=== PATIENT | female | born 1980 | race African-American/Black ===

== ENCOUNTER 2016-11-17 16:02 | Emergency (ER) | payer OTHER ==
[2016-11-17 16:10] VITALS: BP 154/84; PULSE 108; TEMP 98.4; BMI 54.3
--- NOTE | 2016-11-17 16:50 | PDOC ---
Suture Removal/Wound Check HPI - History of Present Illness Chief Complaint: Revisit,Wound Recheck Stated Complaint: REVISIT WOUND CHECK Time Seen by Provider: 11/17/16 16:17 History Source: Yes: Patient Exam Limitations: Yes: No Limitations Treated at: [facility] ED Date of Last ED visit: 11/15/16 - Previous ED Treatment Type of procedure performed on last visit: Yes: I&D of Abscess Antibiotics Prescribed: Yes Past History - Past Medical History Allergies/Adverse Reactions: Allergies No Known Drug Allergies Allergy (Verified 11/17/16 16:10) grapes Allergy (Uncoded 11/17/16 16:10) mushrooms Allergy (Uncoded 11/17/16 16:10) Home Medications: Ambulatory Orders Glipizide 10 mg PO DAILY 06/15/14 Lisinopril [Prinivil] 10 mg PO DAILY 06/16/14 Metformin HCl [Glucophage] 500 mg PO BID 06/16/14 Simvastatin [Zocor -] 5 mg PO HS 06/16/14 Clindamycin [Cleocin -] 300 mg PO TID #30 capsule 11/15/16 General: Yes: other (diabetes) Surgical History: Yes: No Surgical History - Family History Significant Family History: Yes: no pertinent family hx - Social History Smoking Status: Never smoked Patient Lives Alone: No Lives With: spouse/SO Suture Removal/Wound Check PE - Physical Exam Laceration/Wound Check Symptoms: reports: None Current Severity Level: None Maximum Severity Level: None Pain Localization: None Pain Radiation: None *Review of Systems - Review of Systems Able to Perform ROS?: Yes Constitutional: No: Symptoms Reported HEENTM: No: Symptoms Reported Cardiac (ROS): No: Symptoms Reported ABD/GI: No: Symptoms Reported Integumentary: No: Symptoms Reported Neurological: No: Symptoms reported Medical Decision Making - Medical Decision Making 11/17/16 16:47 She needed for wound check. Patient states had I and D of the mons pubis abscess that was packed. Patient states has been taking her antibiotics and denies any pain, fever, or increased drainage. Patient states has been doing warm soaks and hot showers as recommended. Patient states the diabetic and states her sugar this morning was 121. Packing was removed without difficulty. Surrounding skin intact. Patient had gauze applied to the area and recommended to continue hot soaks and hot showers and placed a gauze to the area to provide coverage and allow drainage. precautions given in regards to infection *DC/Admit/Observation/Transfer Diagnosis at time of Disposition: Abscess packing removal, Wound check, abscess - Discharge Dispostion Disposition: HOME Condition at time of disposition: Good - Referrals Referrals: Sam Lantigua MD [Primary Care Provider] - - Patient Instructions Printed Discharge Instructions: DI for Incision and Drainage of a Skin Abscess Additional Instructions: Please continue with your hot soaks and hot showers 4 times a day for least 15 minutes. Keep area covered loosely with a gauze. If you notice any redness swelling increasing drainage and return to ED otherwise follow-up with your PCP.
== END 2016-11-17 16:54 | disposition home or self-care (01) ==
LOC: JERFT 16:02
DX: Z48.01 Encounter for change or removal of surgical wound dressing (principal)
CPT/HCPCS: 99281-25

== ENCOUNTER 2017-01-25 18:39 | Emergency (ER) | payer OTHER ==
[2017-01-25 19:15] VITALS: BMI 54.1
[2017-01-25] MEDS ORDERED: FLUCONAZOLE 100 MG TABLET (UD) PO ONE (19:39)
--- NOTE | 2017-01-25 19:40 | PDOC ---
History of Present Illness - General Chief Complaint: Shortness of Breath Stated Complaint: DIFF BREATHING/EAR PAIN/COUGH/SORE THROAT Time Seen by Provider: 01/25/17 19:16 History Source: Patient Exam Limitations: No Limitations - History of Present Illness Initial Comments: 01/25/17 19:40 36yo Female patient w PmHx: DM and asthma presents to ED c/o Bilateral Ear pain , Cough, and wheezing. Patient states she had not been feeling well x 1 week with coughing and ear pain followed by wheezing yesterday and vomiting x 1 today. She also states that her vaginal area itches and murry when touched. LNMP : Jan 07 regularly irregular. Patient denies abd pain, back pain, CP, fever, hematuria, vaginal odor/discharge/bleeding or any other complaints. Timing/Duration: reports: changing over time, week, yesterday Severity: reports: moderate Possible Cause: Yes: illness exposure (Children at home) Modifying Factors: worse with: activity, albuterol inhaler, albuterol nebulizer , antibiotics, coughing, lying down, oxygen, rest, other Associated Symptoms: reports: cough, earache, sore throat, wheezing Past History - Travel Traveled outside of the country in the last 30 days: No Close contact w/someone who was outside of country & ill: No - Past Medical History Allergies/Adverse Reactions: Allergies Allergy/AdvReac Type Severity Reaction Status Date / Time No Known Drug Allergies Allergy Verified 11/17/16 16:10 grapes Allergy Uncoded 01/25/17 19:06 mushrooms Allergy Uncoded 01/25/17 19:06 Home Medications: Ambulatory Orders Glipizide 10 mg PO DAILY 06/15/14 Lisinopril [Prinivil] 10 mg PO DAILY 06/16/14 Simvastatin [Zocor -] 5 mg PO HS 06/16/14 Albuterol Sulfate Inhaler - [Ventolin Hfa Inhaler -] 1 - 2 inh PO Q4H PRN #1 inhaler 01/25/17 Levofloxacin [Levaquin] 750 mg PO DAILY #6 tab 01/25/17 Asthma: Yes Diabetes: Yes HTN: Yes Hypercholesterolemia: Yes - Psycho/Social/Smoking Cessation Hx Anxiety: No Suicidal Ideation: No Smoking History: Never smoked Have you smoked in the past 12 months: No Information on smoking cessation initiated: No Hx Alcohol Use: No Drug/Substance Use Hx: No Substance Use Type: None Hx Substance Use Treatment: No Respiratory Specific PMHX - Complaint Specific PMHX Angina: No Bronchitis: No Pneumonia: No Pulmonary Embolus: No TB (Tuberculosis): No Review of Systems - Review of Systems Able to Perform ROS?: Yes Is the patient limited Chinese proficient: No Constitutional: No: Chills, Fever, Malaise, Night Sweats HEENTM: Yes: Ear Pain, Nose Congestion, Throat Pain. No: Ear Discharge Respiratory: Yes: Cough, Shortness of Breath, Wheezing. No: Productive cough Cardiac (ROS): No: Chest Pain, Lightheadedness, Palpitations, Syncope, Chest Tightness ABD/GI: Yes: Vomiting. No: Nausea, Poor Appetite, Poor Fluid Intake : No: Burning, Dysuria, Discharge, Flank Pain, Hematuria, Urgency Musculoskeletal: No: Back Pain Integumentary: Yes: Rash. No: Bruising, Erythema Neurological: No: Headache, Seizure, Tremors, Ataxia, Dizziness All Other Systems: Reviewed and Negative *Physical Exam - Vital Signs Last Vital Signs Temp Pulse Resp BP Pulse Ox 98.2 F 112 H 20 143/75 96 01/25/17 19:02 01/25/17 19:02 01/25/17 19:02 01/25/17 19:02 01/25/17 19:02 ED Treatment Course - LABORATORY CBC & Chemistry Diagram: 01/25/17 20:00 01/25/17 20:00 *DC/Admit/Observation/Transfer Diagnosis at time of Disposition: Upper respiratory infection, viral Urinary tract infection Qualifiers: Urinary tract infection type: urethritis Qualified Code(s): N34.2 - Other urethritis Hyperglycemia due to type 2 diabetes mellitus Qualifiers: Diabetes mellitus nursing home insulin use: without nursing home use Qualified Code(s ): E11.65 - Type 2 diabetes mellitus with hyperglycemia - Discharge Dispostion Disposition: HOME Condition at time of disposition: Improved Admit: No - Prescriptions Prescriptions: Levofloxacin [Levaquin] 750 mg PO DAILY #6 tab Albuterol Sulfate Inhaler - [Ventolin Hfa Inhaler -] 1 - 2 inh PO Q4H PRN #1 inhaler PRN Reason: Diff breathing - Patient Instructions Printed Discharge Instructions: DI for Viral Upper Respiratory Infection -- Adult, DI for Hyperglycemia -- Adult, DI for Urinary Tract Infection (UTI) Additional Instructions: FOLLOW UP WITH YOUR PRIMARY CARE PROVIDER THIS WEEK FOR FURTHER EVALUATION. TAKE MEDICATIONS PRESCRIBED. YOU SHOULD CHECK YOU BLOOD SUGAR BEFORE MEALS AND TAKE YOU MEDICATIONS PRESCRIBED. RETURN IF YOUR SYMPTOMS WORSEN OR ANY CONCERNS FOR FURTHER EVALUATION. Print Language: [place]
[2017-01-25] MEDS ORDERED: FLUCONAZOLE 100 MG TABLET (UD) ONE ×2 (19:43→19:45)
[2017-01-25] MEDS ORDERED: ALBUTEROL SO4 2.5/IPRATROPIUM 0.5 INH SOL 3 ML VIAL.NEB. NEB ONE (19:43)
[2017-01-25 19:46] LABS: URINE APPEARANCE CLEAR; URINE BILIRUBIN NEGATIVE (NEGATIVE); URINE BLOOD NEGATIVE (NEGATIVE); URINE COLOR STRAW; URINE GLUCOSE (UA) 3+ (NEGATIVE); URINE KETONE NEGATIVE (NEGATIVE); URINE LEUK ESTERASE 2+ (NEGATIVE); URINE NITRITE NEGATIVE (NEGATIVE); URINE PROTEIN 1+ (NEGATIVE); URINE UROBILINOGEN NEGATIVE E.U./dl (0.2-1.0)
[2017-01-25] MEDS: ALBUTEROL SO4 2.5/IPRATROPIUM 0.5 INH SOL 3 ML VIAL.NEB. NEB SCH ×4 (19:48→21:13)
[2017-01-25 19:51] LABS: URINE MUCUS RARE; URINE RBC 3 /hpf (0-3); URINE WBC 2 /hpf (3-5)
[2017-01-25 20:16] LABS: BASOPHIL 0.7 % (0-2.0); EOSINOPHIL 5.2 % (0-4.5); MCH 26.9 pg (25.7-33.7); MCHC 33.4 g/dl (32.0-36.0); MEAN CELL VOLUME 80.4 fl (80-96); MEAN PLT VOLUME 9.4 fl (7.5-11.1); NEUTROPHILS 34.9 % (42.8-82.8); PLATELET COUNT 82 K/MM3 (134-434); RDW 14.5 % (11.6-15.6); WHITE BLOOD COUNT 6.6 K/mm3 (4.0-10.0)
--- NOTE | 2017-01-25 20:41 | PDOC ---
*Physical Exam - Vital Signs Last Vital Signs Temp Pulse Resp BP Pulse Ox 98.2 F 112 H 20 143/75 96 01/25/17 19:02 01/25/17 19:02 01/25/17 19:02 01/25/17 19:02 01/25/17 19:02 ED Treatment Course - LABORATORY CBC & Chemistry Diagram: 01/25/17 20:00 01/25/17 20:00 - ADDITIONAL ORDERS Additional order review: Laboratory Results 01/25/17 19:40 Urine Color Straw Urine Appearance Clear Urine pH 6.0 Ur Specific [place] 1.016 Urine Protein 1+ H Urine Glucose (UA) 3+ H Urine Ketones Negative Urine Blood Negative Urine Nitrite Negative Urine Bilirubin Negative Urine Urobilinogen Negative Ur Leukocyte Esterase 2+ H Urine RBC 3 Urine WBC 2 Ur Epithelial Cells Rare Urine Mucus Rare Urine HCG, Qual Negative 01/25/17 19:40 Group A Strep Rapid Antigen - Final Throat 01/25/17 20:00 RBC 4.90 D MCV 80.4 MCHC 33.4 RDW 14.5 MPV 9.4 Neutrophils % 34.9 L D Lymphocytes % 50.8 H D Monocytes % 8.4 Eosinophils % 5.2 H D Basophils % 0.7 D - Medications Given in the ED: ED Medications Discontinued Medications Generic Name Dose Route Start Last Admin Trade Name Freq PRN Reason Stop Dose Admin Albuterol/Ipratropium 1 amp 01/25/17 19:45 01/25/17 20:29 Duoneb - NEB 01/25/17 20:31 1 amp Q15M MARIA T Administration Fluconazole 200 mg 01/25/17 19:39 01/25/17 19:48 Diflucan - PO 01/25/17 19:40 200 mg ONCE ONE Administration Medical Decision Making - Medical Decision Making 01/25/17 20:41 Pt seen by the Advanced Practice Provider under my direct supervision Ancillary studies reviewed I agree with plan as outlined by the Advanced Practice Provider VLADIMIR Hurtado *DC/Admit/Observation/Transfer Diagnosis at time of Disposition: Upper respiratory infection, viral, Urinary tract infection, Hyperglycemia due to type 2 diabetes mellitus - Discharge Dispostion Disposition: HOME - Prescriptions Prescriptions: Levofloxacin [Levaquin] 750 mg PO DAILY #6 tab Albuterol Sulfate Inhaler - [Ventolin Hfa Inhaler -] 1 - 2 inh PO Q4H PRN #1 inhaler PRN Reason: Diff breathing - Referrals Referrals: Sam Lantigua MD [Primary Care Provider] - - Patient Instructions Printed Discharge Instructions: DI for Urinary Tract Infection (UTI), DI for Viral Upper Respiratory Infection -- Adult, DI for Hyperglycemia -- Adult Additional Instructions: FOLLOW UP WITH YOUR PRIMARY CARE PROVIDER THIS WEEK FOR FURTHER EVALUATION. TAKE MEDICATIONS PRESCRIBED. YOU SHOULD CHECK YOU BLOOD SUGAR BEFORE MEALS AND TAKE YOU MEDICATIONS PRESCRIBED. RETURN IF YOUR SYMPTOMS WORSEN OR ANY CONCERNS FOR FURTHER EVALUATION. Print Language: NEPALI
[2017-01-25 20:45] LABS: ALBUMIN 3.5 g/dl (3.4-5.0); ANION GAP 9 (8-16); BILIRUBIN,TOTAL 0.6 mg/dL (0.2-1.0); CALCIUM 8.8 mg/dL (8.5-10.1); CO2 27 mmol/L (21-32); CREATININE 0.7 mg/dL (0.55-1.02); SGPT/ALT 35 U/L (12-78); TOT PROT 7.7 g/dl (6.4-8.2)
[2017-01-25 20:46] LABS: ALK PHOS 115 U/L (45-117); SGOT/AST 29 U/L (15-37)
[2017-01-25 20:48] LABS: GLUCOSE,RANDOM 329 mg/dL (74-106)
[2017-01-25] MEDS ORDERED: INSULIN REGULAR HUMAN 100 UNITS/ML *VIAL SQ ONE (21:28)
[2017-01-25] MEDS ORDERED: LEVOFLOXACIN 500 MG TABLET (FP) ONE (21:35)
[2017-01-25] MEDS ORDERED: LEVOFLOXACIN 250 MG TABLET (FP) ONE (21:35)
[2017-01-25] MEDS ORDERED: INSULIN REGULAR HUMAN 100 UNITS/ML *VIAL ONE (21:36)
[2017-01-25 21:46] VITALS: BP 140/93; PULSE 115; TEMP 98.3
[2017-01-26] MEDS ORDERED: LEVOFLOXACIN 750 MG TABLET PO SCH (10:00)
[2017-01-26] MEDS ORDERED: LEVOFLOXACIN 750 MG TABLET PO ONE (21:34)
== END 2017-01-25 21:46 | disposition home or self-care (01) ==
LOC: JER 18:39
DX: J06.9 Acute upper respiratory infection, unspecified (principal); J02.0 Streptococcal pharyngitis; B95.4 Other streptococcus as the cause of diseases classified elsewhere; N34.2 Other urethritis; E11.65 Type 2 diabetes mellitus with hyperglycemia; Z79.84 Long term (current) use of oral hypoglycemic drugs
CPT/HCPCS: 36415; 71020-TC; 80053; 81003; 81015; 84703; 85025; 87070; 87077; 87086; 87430; 99284-25

== ENCOUNTER 2017-02-18 18:51 | Emergency (ER) | payer OTHER ==
[2017-02-18 19:18] VITALS: BP 151/101; TEMP 98.3; BMI 52.9
[2017-02-18] MEDS ORDERED: KETOROLAC TROMETHAMINE 30 MG/1 ML VIAL IM ONE (19:40)
[2017-02-18] MEDS ORDERED: diazePAM 5 MG TABLET PO ONE (19:41)
--- NOTE | 2017-02-18 19:41 | PDOC ---
History of Present Illness - General Chief Complaint: Head/Neck problem Stated Complaint: PAIN Time Seen by Provider: 02/18/17 19:22 History Source: Patient Exam Limitations: No Limitations - History of Present Illness Initial Comments: 02/18/17 19:41 CHIEF COMPLAINT: Neck pain HISTORY OF PRESENT ILLNESS: This is a 36 year old female with a history of NIDDM and asthma who presents complaining of right-sided neck pain and stiffness since morning. She denies fevers, throat pain, headache, or any other symptoms. She took 2 Advil earlier today without relief. Vital signs on arrival are notable for P 113. REVIEW OF SYSTEMS: GENERAL/CONSTITUTIONAL: No fever or chills. No weakness. No weight change. HEAD, EYES, EARS, NOSE AND THROAT: No change in vision. No ear pain or discharge. No sore throat. CARDIOVASCULAR: No chest pain or palpitations. RESPIRATORY: No cough, wheezing, or shortness of breath. GASTROINTESTINAL: No nausea, vomiting, diarrhea or constipation. GENITOURINARY: No dysuria, frequency, or change in urination. MUSCULOSKELETAL: See HPI. SKIN: No rash or easy bruising. NEUROLOGIC: No headache, vertigo, loss of consciousness, or loss of sensation. PSYCHIATRIC: No depression or anxiety. ENDOCRINE: No increased thirst. No abnormal weight change. HEMATOLOGIC/LYMPHATIC: No anemia, easy bleeding, or history of blood clots. ALLERGIC/IMMUNOLOGIC: No hives or skin allergy. No latex allergy. PHYSICAL EXAM: GENERAL: The patient is awake, alert, and fully oriented, in no acute distress. ENT: Holds heads neck in fixed position with head towards right shoulder. No midline vertebral tenderness. Pupils equal, round and reactive to light, extraocular movements intact, sclera anicteric, conjunctiva clear. Neck supple. LUNGS: Clear to auscultation bilaterally. Normal excursion. No respiratory distress or use of accessory muscles. CV: RRR, S1/S2, no MRG. Cap refill < 2 sec. ABDOMEN: Soft, non-distended, non-tender. EXTREMITIES: Normal range of motion, no edema. NEUROLOGICAL: Normal speech, normal gait. CN II-XII grossly intact. PSYCH: Normal mood, normal affect. SKIN: Warm, dry, normal turgor, no rashes or lesions noted. Past History - Past Medical History Allergies/Adverse Reactions: Allergies Allergy/AdvReac Type Severity Reaction Status Date / Time No Known Drug Allergies Allergy Verified 02/18/17 19:16 grapes Allergy Uncoded 02/18/17 19:16 mushrooms Allergy Uncoded 02/18/17 19:16 Home Medications: Ambulatory Orders Glipizide 10 mg PO DAILY 06/15/14 Lisinopril [Prinivil] 10 mg PO DAILY 06/16/14 Simvastatin [Zocor -] 5 mg PO HS 06/16/14 Albuterol Sulfate Inhaler - [Ventolin Hfa Inhaler -] 1 - 2 inh PO Q4H PRN #1 inhaler 01/25/17 Levofloxacin [Levaquin] 750 mg PO DAILY #6 tab 01/25/17 Cyclobenzaprine HCl [Flexeril 10 mg] 10 mg PO BID PRN #10 tablet 02/18/17 Naproxen [Naprosyn -] 500 mg PO BID #14 tablet 02/18/17 Asthma: Yes Diabetes: Yes HTN: Yes Hypercholesterolemia: Yes - Psycho/Social/Smoking Cessation Hx Anxiety: No Suicidal Ideation: No Smoking History: Never smoked Have you smoked in the past 12 months: No Hx Alcohol Use: No Drug/Substance Use Hx: No Substance Use Type: None Hx Substance Use Treatment: No *Physical Exam - Vital Signs Last Vital Signs Temp Pulse Resp BP Pulse Ox 98.3 F 113 H 19 151/101 96 02/18/17 19:16 02/18/17 19:16 02/18/17 19:16 02/18/17 19:16 02/18/17 19:16 Medical Decision Making - Medical Decision Making 02/18/17 19:55 A/P: 36 year old female with neck pain/stiffness, likely torticollis. -Toradol IM and diazepam po -Reassess 02/18/17 20:53 Patient feeling better and would like to leave. HR now within normal limits. *DC/Admit/Observation/Transfer Diagnosis at time of Disposition: Torticollis - Discharge Dispostion Disposition: HOME Condition at time of disposition: Improved Admit: No - Referrals Referrals: Sam Lantigua MD [Primary Care Provider] - 3 days - Patient Instructions Printed Discharge Instructions: DI for Torticollis Additional Instructions: -Rest and apply heat to the painful area -Take Naproxen and Flexeril as prescribed -Follow up with Dr. Lantigua later this weekl -Return here for any new or concerning symptoms, especially fever or headache
[2017-02-18] MEDS ORDERED: diazePAM 5 MG TABLET ONE (20:28)
[2017-02-18] MEDS ORDERED: KETOROLAC TROMETHAMINE 30 MG/1 ML VIAL ONE (20:28)
[2017-02-18 20:57] VITALS: PULSE 101
== END 2017-02-18 20:58 | disposition home or self-care (01) ==
LOC: JERFT 18:51
PROC: 3E0233Z Introduction of Anti-inflammatory into Muscle, Percutaneous Approach (ICD-10-PCS; principal; 2017-02-18)
DX: M43.6 Torticollis (principal); I10 Essential (primary) hypertension; E78.00 Pure hypercholesterolemia, unspecified; E11.9 Type 2 diabetes mellitus without complications; Z79.84 Long term (current) use of oral hypoglycemic drugs; J45.909 Unspecified asthma, uncomplicated
CPT/HCPCS: 84703; 99281-25

== ENCOUNTER 2017-05-27 12:11 | Observation (INO) | payer OTHER ==
--- NOTE | 2017-05-27 12:41 | EKG ---
Test Reason : Blood Pressure : / mmHG Vent. Rate : 114 BPM Atrial Rate : 114 BPM P-R Int : 132 ms QRS Dur : 078 ms QT Int : 322 ms P-R-T Axes : 022 049 007 degrees QTc Int : 443 ms SINUS TACHYCARDIA NONSPECIFIC ST-T ABNORMALITIES ABNORMAL ECG WHEN COMPARED WITH ECG OF 15-JUN-2014 15:32, NO SIGNIFICANT CHANGE WAS FOUND CLINICAL CORELATION. Confirmed by LIZET MOORE MD ([id number]) on 05/27/2017 12:41:00 PM Referred By: Confirmed By:LIZET MOORE MD
--- NOTE | 2017-05-27 12:44 | PDOC ---
History of Present Illness - General Stated Complaint: CHEST PAIN Time Seen by Provider: 05/27/17 12:23 - History of Present Illness Initial Comments: 05/27/17 12:44 Patient is a 37 year obese female with history of DM presenting with chest pain for 3 hours. Past History - Past Medical History Allergies/Adverse Reactions: Allergies Allergy/AdvReac Type Severity Reaction Status Date / Time No Known Drug Allergies Allergy Verified 05/27/17 12:37 grapes Allergy Uncoded 05/27/17 12:37 mushrooms Allergy Uncoded 05/27/17 12:37 Home Medications: Ambulatory Orders Glipizide 10 mg PO DAILY 06/15/14 Simvastatin [Zocor -] 10 mg PO HS 06/16/14 Albuterol Sulfate Inhaler - [Ventolin Hfa Inhaler -] 1 - 2 inh PO Q4H PRN #1 inhaler 01/25/17 Cyclobenzaprine HCl [Flexeril 10 mg] 10 mg PO BID PRN #10 tablet 02/18/17 Asthma: Yes Diabetes: Yes HTN: Yes Hypercholesterolemia: Yes - Psycho/Social/Smoking Cessation Hx Anxiety: No Suicidal Ideation: No Smoking History: Never smoked Have you smoked in the past 12 months: No Hx Alcohol Use: No Drug/Substance Use Hx: No Substance Use Type: None Hx Substance Use Treatment: No Heart Score/ECG Review - History History: Moderately suspicious - Electrocardiogram EKG: Non specific repolarization disturbance - Age Age: </= 45 - Risk Factors Risk Factors Heart Score: Yes Hx Hypercholesterolemia, Yes Hx Diabetes Based on the list above the patient has:: 1-2 risk factors ED Treatment Course - LABORATORY CBC & Chemistry Diagram: 05/27/17 12:55 05/27/17 12:55 Medical Decision Making - Medical Decision Making Patient presents 3 hours after developing a persistent chest pain during argument. Patient is morbidly obese with DM and history moderatly concerning for ACS(chest pain/pressure location). Argument considered failed stress test. ECG wnl. Ddx: ACS, anxiety, gastritis Full cardiac workup. 05/27/17 13:18 Patient endorses ASA allergy to RN. 05/27/17 14:24 Reviewed labs. CBC and INR within normal limits 05/27/17 14:38 Trop(-), HCG(-) Ordered CXR Requested admission to [facility] obs 05/27/17 14:45 Spoke with patient about results and recommendation that she be observed overnight and she agreed with the plan 05/27/17 15:02 Q3T3 on EKG, same as baseline; tachycardia (114) on exam Low suspicion for PE; D-Dimer to RO 05/27/17 16:00 Attempted bedside echo which was obscured due to obesity *DC/Admit/Observation/Transfer Diagnosis at time of Disposition: Chest pain Qualifiers: Chest pain type: unspecified Qualified Code(s): R07.9 - Chest pain, unspecified - Discharge Dispostion Condition at time of disposition: Stable Admit: Yes - Attestations Physician Attestion: 05/27/17 16:03 I, Dr. Tom Patrick, attest that this document has been prepared under my direction and personally reviewed by me in its entirety. I further attest, that it accurately reflects all work, treatment, procedures and medical decision -making performed by me.
[2017-05-27] MEDS ORDERED: ASPIRIN 81 MG CHEWABLE TABLETS PO ONE (12:52)
[2017-05-27] MEDS ORDERED: ACETAMINOPHEN 500 MG TABLET (FP) PO ONE (12:55)
--- NOTE | 2017-05-27 12:59 | PDOC ---
Attending Attestation - Resident Resident Name: Tom Patrick - ED Attending Attestation I have performed the following: I have examined & evaluated the patient, The case was reviewed & discussed with the resident, I agree w/resident's findings & plan, Exceptions are as noted - HPI HPI: 05/27/17 12:55 37y/o F DM p/w CP in the setting of emotional stressor. substernal radiating to L chest/back, L arm tingling. - Physicial Exam PE: 05/27/17 12:56 HR 114, VS otherwise nl exam as noted - Medical Decision Making 05/27/17 12:57 37y/o F diabetic with moderately concerning presentation of cp radiating to back in setting of emotional stress. labs including ddimer giving resting tachycardia, ua ekg, cxr asa reassess, likely obs Heart Score/ECG Review - History History: Moderately suspicious - Electrocardiogram EKG: Non specific repolarization disturbance - Age Age: </= 45 - Risk Factors Risk Factors Heart Score: Yes Hx Diabetes, Yes Hx Obesity Based on the list above the patient has:: 1-2 risk factors - Troponin Troponin: </= normal limit - Score Heart Score - Total: 3
[2017-05-27] MEDS ORDERED: ASPIRIN 81 MG CHEWABLE TABLETS ONE (13:06)
[2017-05-27] MEDS ORDERED: ACETAMINOPHEN 325 MG TABLET (FP) ONE ×2 (13:06→13:11)
[2017-05-27 13:52] LABS: BASOPHIL 0.5 % (0-2.0); EOSINOPHIL 2.8 % (0-4.5); MCH 28.2 pg (25.7-33.7); MEAN CELL VOLUME 82.8 fl (80-96); MEAN PLT VOLUME 9.9 fl (7.5-11.1); NEUTROPHILS 57.4 % (42.8-82.8); PLATELET COUNT 142 K/MM3 (134-434); RDW 13.8 % (11.6-15.6); WHITE BLOOD COUNT 6.9 K/mm3 (4.0-10.0)
[2017-05-27 14:08] LABS: INR 1.01 (0.82-1.09); PROTHROMBIN TIME (PATIENT) 11.1 SEC (9.98-11.88)
[2017-05-27 14:18] LABS: ALBUMIN 3.3 g/dl (3.4-5.0); ANION GAP 11 (8-16); BILIRUBIN,TOTAL 0.7 mg/dL (0.2-1.0); CALCIUM 8.6 mg/dL (8.5-10.1); CO2 25 mmol/L (21-32); CREATININE 0.7 mg/dL (0.55-1.02); SGOT/AST 21 U/L (15-37); SGPT/ALT 26 U/L (12-78); TOT PROT 7.5 g/dl (6.4-8.2)
[2017-05-27 14:20] LABS: ALK PHOS 106 U/L (45-117); TROPONIN I < 0.02 ng/ml (0.00-0.05)
[2017-05-27 14:28] LABS: GLUCOSE,RANDOM 330 mg/dL (74-106)
--- NOTE | 2017-05-27 15:06 | HP ---
CHIEF COMPLAINT: "i have chest pain" PCP: Dr Patrick HISTORY OF PRESENT ILLNESS: This is a 37 yo F with PMH of NIDDM, HLD, GERD, who presents due to chest pain that started 2 hours ago and has mostly resolved since. She states that she was sitting at dinner table, calmly doing paperwors when suddenly she developed sharp left sided chest pain radiating to her back and associated with L facial and L arm numbness as well as palpitations. It is aggravated by deep inspiration and elicited by pressing on sternum. It has no cleat alleviating factors. She then lost memory of what happened but per boyfriends, her speech turned slurry and she developed L facial droop and L arm slouching. She spontaneously returned to baseline within minutes but continued to have chest pain. She denies similar symptoms in the past but reports occasional past palpitations and tachycardia. She denies sob, cough, n/v, h/a, currentl numbness or weakness, loss of bowel control, abd pain, diarrhea, constipation, f /c. She denies recent travel, calf pain, hemoptysis, PO conraceptives, history of blood clots. ER course was notable for: (1)labs (2)cxr, ekg (3)tylenol, mag, asa, po Recent Travel: denies PAST MEDICAL HISTORY: as above PAST SURGICAL HISTORY: c section x 5 Social History: lives with children, boyfriend Smoking:denies Alcohol:denies Drugs: denies Family History: CAD, [place], DM Allergies No Known Drug Allergies Allergy (Verified 05/27/17 12:37) grapes Allergy (Uncoded 05/27/17 12:37) mushrooms Allergy (Uncoded 05/27/17 12:37) HOME MEDICATIONS: Home Medications Medication Instructions Recorded Glipizide 10 mg PO DAILY 06/15/14 Simvastatin [Zocor -] 10 mg PO HS 06/16/14 Albuterol Sulfate Inhaler - 1 - 2 inh PO Q4H PRN #1 inhaler 01/25/17 [Ventolin Hfa Inhaler -] Cyclobenzaprine HCl [Flexeril 10 10 mg PO BID PRN #10 tablet 02/18/17 mg] REVIEW OF SYSTEMS CONSTITUTIONAL: Absent: fever, chills, malaise HEENT: Absent: rhinorrhea, nasal congestion, throat pain CARDIOVASCULAR: Absent: syncope, irregular heart rate, lightheadedness, peripheral edema RESPIRATORY: Absent: cough, shortness of breath, wheezing, hemoptysis GASTROINTESTINAL: Absent: nausea, vomiting, diarrhea, constipation, melena, hematochezia GENITOURINARY: Absent: dysuria, flank pain MUSCULOSKELETAL: Absent: myalgia, arthralgia SKIN: Absent: rash, itching, pallor HEMATOLOGIC/IMMUNOLOGIC: Absent: easy bleeding, easy bruising ENDOCRINE: Absent: heat intolerance, cold intolerance NEUROLOGIC: Absent: headache, dizziness, unsteady gait, seizure, bladder or bowel incontinence PSYCHIATRIC: Absent: depression PHYSICAL EXAMINATION Vital Signs - 24 hr 05/27/17 05/27/17 12:15 14:41 Temperature 98.0 F Pulse Rate 120 H Pulse Rate [ 106 H Apical] Respiratory 18 20 Rate Blood Pressure 119/71 Blood Pressure 116/59 [Left Arm] O2 Sat by Pulse 100 99 Oximetry (%) GENERAL: Awake, alert, and fully oriented, in no acute distress. HEAD: Normal with no signs of trauma. EYES: Pupils equal, round and reactive to light, extraocular movements intact, sclera anicteric, conjunctiva clear. No lid lag. EARS, NOSE, THROAT: Ears normal, nares patent, oropharynx clear without exudates. Moist mucous membranes. NECK: Normal range of motion, supple without lymphadenopathy, JVD, or masses. LUNGS: Breath sounds equal, clear to auscultation bilaterally. No wheezes, and no crackles. No accessory muscle use. HEART: Regular rate and rhythm, normal S1 and S2 without murmur, rub or gallop. ABDOMEN: Soft, obese, slightly tender epigastric region, not distended, normoactive bowel sounds, no guarding, no rebound, no masses. MUSCULOSKELETAL:No CVA tenderness. UPPER EXTREMITIES: 2+ pulses, warm, well-perfused. No cyanosis. No clubbing. No peripheral edema. LOWER EXTREMITIES: 2+ pulses, warm, well-perfused. No calf tenderness. No peripheral edema. NEUROLOGICAL: Cranial nerves II-XII intact. Normal speech. upper extremities strength 5/5, reflexes 2+ biceps b/l, sensation intact, Le strength 5/5 b/l, reflexes 2+ patellar b/l sensation intact PSYCHIATRIC: Cooperative. Good eye contact. Appropriate mood and affect. SKIN: Warm, dry Laboratory Results - last 24 hr 05/27/17 05/27/17 05/27/17 12:47 12:55 12:55 WBC 6.9 RBC 4.75 Hgb 13.4 Hct 39.4 MCV 82.8 MCH 28.2 MCHC 34.0 RDW 13.8 Plt Count 142 D MPV 9.9 Neutrophils % 57.4 D Lymphocytes % 32.4 D Monocytes % 6.9 Eosinophils % 2.8 Basophils % 0.5 INR 1.01 Sodium Potassium Chloride Carbon Dioxide Anion Gap BUN Creatinine Creat Clearance w eGFR Random Glucose Calcium Magnesium Total Bilirubin AST ALT Alkaline Phosphatase Creatine Kinase Troponin I Total Protein Albumin Urine HCG, Qual Negative 05/27/17 12:55 WBC RBC Hgb Hct MCV MCH MCHC RDW Plt Count MPV Neutrophils % Lymphocytes % Monocytes % Eosinophils % Basophils % INR Sodium 138 Potassium 4.2 Chloride 102 Carbon Dioxide 25 Anion Gap 11 BUN 9 D Creatinine 0.7 Creat Clearance w eGFR > 60 Random Glucose 330 H* Calcium 8.6 Magnesium 2.0 Total Bilirubin 0.7 AST 21 D ALT 26 D Alkaline Phosphatase 106 Creatine Kinase 131 Troponin I < 0.02 Total Protein 7.5 Albumin 3.3 L Urine HCG, Qual ASSESSMENT/PLAN: This is a 37 yo F with PMH of NIDDM, HLD, GERD, who presents due to chest pain that started 2 hours ago and has mostly resolved since. Atypical chest pain, pleuritic and reproducible -patient has poor -ekg inferolateral st flattening/infersion, q3t3, siuns tachy but no change from prior -trop - x 1, repeat -DDimer 386 -cxr unremarkable -tele monitroing -cardio consult -tte -tfts, lipid panel, a1c -cta chest -lipotor 80 once -s/p asa 162 -NS@ 125 -tylenol prn NIDDM2 -bgm tidac -novolog slididng scale HLD -lipitor 10 HS FEN NS @ 125 -lytes stable -diabetic NA restricted diet Dispo: obs tele Problem List - Problem (1) Chest pain Code(s): R07.9 - CHEST PAIN, UNSPECIFIED Qualifiers: Chest pain type: unspecified Qualified Code(s): R07.9 - Chest pain, unspecified (2) Non-insulin dependent type 2 diabetes mellitus Code(s): E11.9 - TYPE 2 DIABETES MELLITUS WITHOUT COMPLICATIONS (3) Atypical chest pain Code(s): R07.89 - OTHER CHEST PAIN (4) HLD (hyperlipidemia) Code(s): E78.5 - HYPERLIPIDEMIA, UNSPECIFIED Visit type - Emergency Visit Emergency Visit: Yes ED Registration Date: 05/27/17 Care time: The patient presented to the Emergency Department on the above date and was hospitalized for further evaluation of their emergent condition. - New Patient This patient is new to me today: Yes Date on this admission: 05/27/17 - Critical Care Critical Care patient: No
[2017-05-27] MEDS ORDERED: ACETAMINOPHEN 325 MG TABLET (FP) PO PRN (15:57)
[2017-05-27] MEDS ORDERED: PANTOPRAZOLE 40 MG TABLET (FP) PO SCH (16:00)
[2017-05-27] MEDS ORDERED: ATORVASTATIN CA 80 MG TABLET (FP) PO ONE (16:07)
[2017-05-27] MEDS ORDERED: MAG HYDROX/AL HYDROX/SIMETH 30 ML UNIT-DOSE CUP PO ONE (16:07)
[2017-05-27] MEDS ORDERED: ALBUTEROL SO4 6.7 GM HFA INHALER IH PRN (16:09)
[2017-05-27] MEDS ORDERED: PANTOPRAZOLE 40 MG TABLET (FP) ONE (16:14)
[2017-05-27] MEDS ORDERED: ATORVASTATIN CA 80 MG TABLET (FP) ONE (16:14)
[2017-05-27] MEDS ORDERED: MAG HYDROX/AL HYDROX/SIMETH 30 ML UNIT-DOSE CUP ONE (16:15)
--- NOTE | 2017-05-27 17:20 | PN ---
Teaching Attending Note Name of Resident: Jossy Roy ATTENDING PHYSICIAN STATEMENT I saw and evaluated the patient. I reviewed the resident's note and discussed the case with the resident. I agree with the resident's findings and plan as documented. SUBJECTIVE: 37 year old female c/o 2 hr history of left sided chest pain radiating to her back , sharp , sudden onset , associated with L facial and arm numbness . Reports episode of slurry speech and left facial droop which resolved now but pain is persisting. PAST MEDICAL HISTORY: NIDDM, HLD, GERD PAST SURGICAL HISTORY: c section x 5 Social History: lives with children, boyfriend Smoking:denies Alcohol:denies Drugs: denies Family History: CAD, [place], DM Allergies No Known Drug Allergies Allergy (Verified 05/27/17 12:37) grapes Allergy (Uncoded 05/27/17 12:37) mushrooms Allergy (Uncoded 05/27/17 12:37) OBJECTIVE: Vital Signs Temperature 98.0 F 05/27/17 12:15 Pulse Rate 106 H 05/27/17 14:41 Respiratory Rate 20 05/27/17 14:41 Blood Pressure 116/59 05/27/17 14:41 O2 Sat by Pulse Oximetry (%) 99 05/27/17 14:41 CBC, BMP 05/27/17 12:55 05/27/17 12:[address] flattening/infersion, q3t3, siuns tachy but no change from prior ASSESSMENT AND PLAN: 1. Chest pain- acute onset , obese patient , baseline tachycardia, mildly elevated d dimers, small PE can not be excluded 2. Episode of pre syncope 3. Morbid obesity 4. HTN 5. DM plan - telemetry - enzymes -O2 - echo - CT chest if symptoms persist
[2017-05-27] MEDS: INSULIN SLIDING SCALE (NOVOLOG) 1 VIAL SQ SCH (17:23)
[2017-05-27 17:38] VITALS: BMI 53.5
[2017-05-27] MEDS ORDERED: SODIUM CHLORIDE 1,000 ML IV SCH (18:00)
[2017-05-27 18:24] LABS: TROPONIN I < 0.02 ng/ml (0.00-0.05)
[2017-05-28] MEDS: INSULIN SLIDING SCALE (NOVOLOG) 1 VIAL SQ SCH ×3 (06:31→17:15)
--- NOTE | 2017-05-28 08:21 | PN ---
Physical Exam: SUBJECTIVE: Patient seen and examined this AM. Pt states that she is no longer having CP. States that before her incident of L sided sharp pleuritic CP, she was eating and having an argument with her family member. States that she never had this CP before. Orthopnea was present in ED, but now she is able to lie flat with good oxygenation. Told patient about her negative CTA results. Pt expresses understanding. OBJECTIVE: Vital Signs Period Temp Pulse Resp BP Sys/Guzmán Pulse Ox Last 24 Hr 97.8 F-98 F 94-114 20-20 104-137/51-91 97-98 GENERAL: The patient is awake, alert, and fully oriented, in no acute distress. EYES: PERRL, extraocular movements intact NECK: Trachea midline, full range of motion, supple. LUNGS: Breath sounds equal, clear to auscultation bilaterally, no wheezes, no crackles HEART: Regular rate and rhythm, S1, S2 without murmur, rub or gallop. ABDOMEN:Obese, Soft, nontender, nondistended, normoactive bowel sounds, no guarding EXTREMITIES: 2+ pulses, warm, well-perfused, no edema. NEUROLOGICAL: Cranial nerves II through XII grossly intact. No facial droop. Equal and intact sensation in face and body. Muscular strength 5/5. Reflexes 2+ . Normal speech, PSYCH: Normal mood, normal affect. Laboratory Results - last 24 hr 05/27/17 05/27/17 05/27/17 17:00 17:00 17:17 POC Glucometer [phone] Creatine Kinase 118 Troponin I < 0.02 Cholesterol 215 H 05/28/17 05:54 POC Glucometer 249 Creatine Kinase Troponin I Cholesterol Active Medications Generic Name Dose Route Start Last Admin Trade Name Freq PRN Reason Stop Dose Admin Acetaminophen 650 mg 05/27/17 15:57 Tylenol - PO Q4H PRN FEVER OR PAIN Albuterol Sulfate 1 puff 05/27/17 16:09 Ventolin Hfa Inhaler - IH Q4H PRN Diff breathing Atorvastatin Calcium 10 mg 05/28/17 22:00 Lipitor - PO HS MARIA T Sodium Chloride 1,000 mls @ 125 mls/hr 05/27/17 18:00 05/27/17 18:20 Normal Saline - IV 125 mls/hr ASDIR MARIA T Administration Insulin Aspart 1 vial 05/27/17 16:30 05/28/17 06:31 Novolog Vial Sliding Scale - SQ 4 unit TIDAC MARIA T Administration Protocol Pantoprazole Sodium 40 mg 05/28/17 10:00 Protonix - PO DAILY MARIA T TELE: Tele reviewed, alarms are for episode of tachycardia with movement ASSESSMENT/PLAN: This is a 37 yo obese F with PMH of NIDDM, HLD, GERD, who presents due to L sided pleuritic chest pain, and L facial droop and LUE numbness which resolved within minutes. # Atypical chest pain - Patient's CP was pleuritic and reproducible, +orthopnea; currently is not reproducible, able to lie flat - Less likely ACS - negative trops, no EKG cx, but will get monitor Lipid panel , A1C, thyroid function; s/p ASA 162mg PO once. Cardio recommended inpatient stress test and antiplatelet therapy to r/u ACS. Pt refused more ASA, states that as a child she had an episode of shaking afterwards, although patient got one dose in ER with no symptoms. Will start patient on Plavix 75mg Daily, f/u stress test results tmrw - R/o PE - +ddimer, DVT is negative, obese, pleuritic, CTA Chest - No pulmonary embolism, no pneumothorax, no infiltrate. - Echo pending - f/u results - Cardio on board # R/o TIA - Because patient presented with L facial droop and L upper extremity numbness, she is receiving a TIA/CVA workup. CT head is negative for bleeds or acute infarcts, carotid dopplers were negative - Pending MRI #Hyperlipidemia (Total chol 215) - Started Lipitor 10mg PO QHS # Non-Insulin Dependent Diabetes Mellitus 2 - Blood glucose monitoring before meals - AM glucose currently 249 - Started novolog sliding scale FEN - Fluids: Not on fluids - Electrolytes: Monitor - Nutrition: Diabetic, sodium restricted diet # Prophylaxis - DVT: SCDs ordered - GI: not needed Visit type - Emergency Visit Emergency Visit: No - New Patient This patient is new to me today: No - Critical Care Critical Care patient: No - Discharge Referral Referred to [facility] Med P.C.: No
--- NOTE | 2017-05-28 09:27 | CON.CARD ---
Consult Consult Specialty:: Cardiology Reason for Consultation:: CP - History of Present Illness Chief Complaint: cp History of Present Illness: Patient is a 37 year obese female with history of DM presenting with chest pain for 3 hours after arguemnt with her daughter. - History Source History Provided By: Patient, Medical Record - Past Medical History Cardio/Vascular: Yes: HTN, Hyperlipdemia Endocrine: Yes: Diabetes Mellitus - Alcohol/Substance Use Hx Alcohol Use: No - Smoking History Smoking history: Never smoked Have you smoked in the past 12 months: No Home Medications - Allergies Allergies/Adverse Reactions: Allergies Allergy/AdvReac Type Severity Reaction Status Date / Time No Known Drug Allergies Allergy Verified 05/27/17 12:37 grapes Allergy Uncoded 05/27/17 12:37 mushrooms Allergy Uncoded 05/27/17 12:37 - Home Medications Home Medications: Ambulatory Orders Glipizide 10 mg PO DAILY 06/15/14 Simvastatin [Zocor -] 10 mg PO HS 06/16/14 Albuterol Sulfate Inhaler - [Ventolin Hfa Inhaler -] 1 - 2 inh PO Q4H PRN #1 inhaler 01/25/17 Cyclobenzaprine HCl [Flexeril 10 mg] 10 mg PO BID PRN #10 tablet 02/18/17 Review of Systems - Review of Systems Constitutional: reports: No Symptoms Eyes: reports: No Symptoms HENT: reports: No Symptoms Neck: reports: No Symptoms Cardiovascular: reports: Chest Pain Gastrointestinal: reports: No Symptoms Genitourinary: reports: No Symptoms Breasts: reports: No Symptoms Reported Musculoskeletal: reports: No Symptoms Integumentary: reports: No Symptoms Neurological: reports: No Symptoms Endocrine: reports: No Symptoms Hematology/Lymphatic: reports: No Symptoms Psychiatric: reports: No Symptoms Vital Signs: Vital Signs Temperature 97.8 F 05/28/17 01:00 Pulse Rate 113 H 05/28/17 05:00 Respiratory Rate 20 05/28/17 05:00 Blood Pressure 130/90 05/28/17 05:00 O2 Sat by Pulse Oximetry (%) 98 05/27/17 20:51 Constitutional: Yes: Well Nourished, No Distress, Calm Eyes: Yes: WNL, Conjunctiva Clear, EOM Intact HENT: Yes: WNL, Atraumatic, Normocephalic Neck: Yes: WNL, Supple, Trachea Midline Respiratory: Yes: WNL, Regular, CTA Bilaterally Gastrointestinal: Yes: WNL, Normal Bowel Sounds Renal/: Yes: WNL Cardiovascular: Yes: WNL, Regular Rate and Rhythm Musculoskeletal: Yes: WNL Extremities: Yes: WNL Integumentary: Yes: WNL Neurological: Yes: WNL, Alert, Oriented ...Motor Strength: WNL Psychiatric: Yes: WNL, Alert, Oriented - Other Data Labs, Other Data: INR, PTT INR 1.01 (0.82-1.09) 05/27/17 12:55 Troponin, BNP 05/27/17 17:00 Troponin I < 0.02 Troponin, BNP 05/27/17 17:00 Troponin I < 0.02 Laboratory Tests 05/27/17 05/27/17 05/27/17 12:47 12:55 12:55 WBC 6.9 RBC 4.75 Hgb 13.4 Hct 39.4 MCV 82.8 MCH 28.2 MCHC 34.0 RDW 13.8 Plt Count 142 D MPV 9.9 Neutrophils % 57.4 D Lymphocytes % 32.4 D Monocytes % 6.9 Eosinophils % 2.8 Basophils % 0.5 INR 1.01 D-Dimer Sodium Potassium Chloride Carbon Dioxide Anion Gap BUN Creatinine Creat Clearance w eGFR POC Glucometer Random Glucose Hemoglobin A1c % Calcium Phosphorus Magnesium Total Bilirubin AST ALT Alkaline Phosphatase Creatine Kinase Troponin I Total Protein Albumin Triglycerides Cholesterol Urine HCG, Qual Negative 05/27/17 05/27/17 05/27/17 12:55 15:06 17:00 WBC RBC Hgb Hct MCV MCH MCHC RDW Plt Count MPV Neutrophils % Lymphocytes % Monocytes % Eosinophils % Basophils % INR D-Dimer 386 H Sodium 138 Potassium 4.2 Chloride 102 Carbon Dioxide 25 Anion Gap 11 BUN 9 D Creatinine 0.7 Creat Clearance w eGFR > 60 POC Glucometer Random Glucose 330 H* Hemoglobin A1c % Calcium 8.6 Phosphorus Magnesium 2.0 Total Bilirubin 0.7 AST 21 D ALT 26 D Alkaline Phosphatase 106 Creatine Kinase 131 Troponin I < 0.02 Total Protein 7.5 Albumin 3.3 L Triglycerides Cholesterol 215 H Urine HCG, Qual 05/27/17 05/27/17 05/27/17 17:00 17:00 17:17 WBC RBC Hgb Hct MCV MCH MCHC RDW Plt Count MPV Neutrophils % Lymphocytes % Monocytes % Eosinophils % Basophils % INR D-Dimer Sodium Potassium Chloride Carbon Dioxide Anion Gap BUN Creatinine Creat Clearance w eGFR POC Glucometer 265.44487 Random Glucose Hemoglobin A1c % 9.9 H D Calcium Phosphorus Magnesium Total Bilirubin AST ALT Alkaline Phosphatase Creatine Kinase 118 Troponin I < 0.02 Total Protein Albumin Triglycerides Cholesterol Urine HCG, Qual 05/28/17 05/28/17 05/28/17 05:54 09:05 09:05 WBC 5.4 RBC 4.70 Hgb 13.1 Hct 38.8 MCV 82.5 MCH 27.9 MCHC 33.8 RDW 13.7 Plt Count 127 L MPV 9.4 Neutrophils % Lymphocytes % Monocytes % Eosinophils % Basophils % INR D-Dimer Sodium 138 Potassium 3.9 Chloride 102 Carbon Dioxide 27 Anion Gap 9 BUN 7 D Creatinine 0.6 Creat Clearance w eGFR POC Glucometer 249 Random Glucose 291 H Hemoglobin A1c % Calcium 8.5 Phosphorus 3.1 Magnesium 2.1 Total Bilirubin AST ALT Alkaline Phosphatase Creatine Kinase Troponin I Total Protein Albumin Triglycerides 209 H Cholesterol 185 Urine HCG, Qual Problem List - Problems (1) Atypical chest pain Code(s): R07.89 - OTHER CHEST PAIN (2) Chest pain Code(s): R07.9 - CHEST PAIN, UNSPECIFIED Qualifiers: Chest pain type: unspecified Qualified Code(s): R07.9 - Chest pain, unspecified (3) HLD (hyperlipidemia) Code(s): E78.5 - HYPERLIPIDEMIA, UNSPECIFIED (4) Abscess Code(s): L02.91 - CUTANEOUS ABSCESS, UNSPECIFIED (5) Abscess packing removal Code(s): Z48.00 - ENCOUNTER FOR CHANGE OR REMOVAL OF NONSURG WOUND DRESSING (6) Gastroenteritis Code(s): K52.9 - NONINFECTIVE GASTROENTERITIS AND COLITIS, UNSPECIFIED (7) Hyperglycemia due to type 2 diabetes mellitus Code(s): E11.65 - TYPE 2 DIABETES MELLITUS WITH HYPERGLYCEMIA Qualifiers: Diabetes mellitus termite control technician insulin use: without termite control technician use Qualified Code(s): E11.65 - Type 2 diabetes mellitus with hyperglycemia (8) Leukopenia Code(s): D72.819 - DECREASED WHITE BLOOD CELL COUNT, UNSPECIFIED (9) Non-insulin dependent type 2 diabetes mellitus Code(s): E11.9 - TYPE 2 DIABETES MELLITUS WITHOUT COMPLICATIONS (10) Thrombocytopenia Code(s): D69.6 - THROMBOCYTOPENIA, UNSPECIFIED (11) Torticollis Code(s): M43.6 - TORTICOLLIS (12) Upper respiratory infection, viral Code(s): J06.9 - ACUTE UPPER RESPIRATORY INFECTION, UNSPECIFIED B97.89 - OTH VIRAL AGENTS THE CAUSE OF DISEASES CLASSD ELSWHR (13) Urinary tract infection Code(s): N39.0 - URINARY TRACT INFECTION, SITE NOT SPECIFIED Qualifiers: Urinary tract infection type: urethritis Qualified Code(s): N34.2 - Other urethritis (14) Wound check, abscess Code(s): Z51.89 - ENCOUNTER FOR OTHER SPECIFIED AFTERCARE Assessment/Plan angina dm - poorly controlled morbid obesity htn hlp r/o mi r/o pe negative plan echo asa mibi stress test
[2017-05-28 09:38] LABS: MCH 27.9 pg (25.7-33.7); MCHC 33.8 g/dl (32.0-36.0); MEAN CELL VOLUME 82.5 fl (80-96); MEAN PLT VOLUME 9.4 fl (7.5-11.1); PLATELET COUNT 127 K/MM3 (134-434); RDW 13.7 % (11.6-15.6); WHITE BLOOD COUNT 5.4 K/mm3 (4.0-10.0)
[2017-05-28] MEDS ORDERED: PANTOPRAZOLE 40 MG TABLET (FP) PO SCH (10:00)
[2017-05-28 10:01] LABS: ANION GAP 9 (8-16); CALCIUM 8.5 mg/dL (8.5-10.1); CHOLESTEROL 185 mg/dL (50-200); CO2 27 mmol/L (21-32); CREATININE 0.6 mg/dL (0.55-1.02); GLUCOSE,RANDOM 291 mg/dL (74-106); MAGNESIUM 2.1 mg/dL (1.8-2.4); PHOSPHOROUS 3.1 mg/dL (2.5-4.9)
[2017-05-28] MEDS ORDERED: ASPIRIN 325 MG ENTERIC COATED TABLET (FP) PO SCH (11:15)
--- NOTE | 2017-05-28 11:49 | EKG ---
Test Reason : Blood Pressure : / mmHG Vent. Rate : 088 BPM Atrial Rate : 088 BPM P-R Int : 140 ms QRS Dur : 080 ms QT Int : 368 ms P-R-T Axes : 023 051 020 degrees QTc Int : 445 ms NORMAL SINUS RHYTHM NORMAL ECG WHEN COMPARED WITH ECG OF 27-MAY-2017 12:27, NONSPECIFIC T WAVE ABNORMALITY NO LONGER EVIDENT IN ANTEROLATERAL LEADS Confirmed by LICO CABRERA, LEIF ([id number]) on 05/28/2017 11:48:53 AM Referred By: Ab VIDALES Confirmed By:LEIF BARFIELD MD
[2017-05-28 11:57] LABS: FREE T4 0.86 ng/dl (0.76-1.46); LDL CHOLESTEROL (ONLY SJRH) 109 mg/dL (5-100); THYROID STIMULATING HORMONE 2.44 uIU/ml (0.358-3.74)
[2017-05-28] MEDS ORDERED: diazePAM 5 MG TABLET PO ONE (18:34)
--- NOTE | 2017-05-28 18:34 | PN ---
Teaching Attending Note Name of Resident: Richard Mccartney ATTENDING PHYSICIAN STATEMENT I saw and evaluated the patient. I reviewed the resident's note and discussed the case with the resident. I agree with the resident's findings and plan as documented. SUBJECTIVE: nof ever ro chills. has MCKEON , reported L sided facial numbness and L sided lower facial droop, with L arm numbness x 10 min at home . CP resolved now OBJECTIVE: NAD Cv: RRR Lung s: CTAB ext : no edema Neuro : no facial droop, EOMI, round equal pupils , reactive t olight . nl facia lsensation . strength 5/5 in upper and lower ext proximally and distally. sensatio to light touch NL. reflexes 2+ knee jerk and biceps . ASSESSMENT AND PLAN: 37 y.o naida with h/o Dm , HL , and GERD who presneted with L sided CP and reported L sided numbness and facial droop 1- Atypicl CP:after n argument and emotional stress. resolved., was reproducible . EKG with flat EKG in Lateral leads. neg trop - stress test in am - telet , with sinus tachy - cant use asa , will give plavix 2- HLP : lipitor in place of simvastatin LDL above goal . 3- L sided facial droop, and L sided numbness: - CT head neg - r/o TIA , stroke . obtain MRI of brain dispo : possible dc after stress , and MRI
[2017-05-28] MEDS ORDERED: ATORVASTATIN CA 10 MG TABLET (FP) PO SCH ×2 (22:00)
[2017-05-28] MEDS ORDERED: ATORVASTATIN CA 10 MG TABLET (FP) PO ONE (22:00)
[2017-05-29] MEDS: INSULIN SLIDING SCALE (NOVOLOG) 1 VIAL SQ SCH ×3 (06:43→18:30)
[2017-05-29 07:50] LABS: MCH 27.7 pg (25.7-33.7); MCHC 33.5 g/dl (32.0-36.0); MEAN CELL VOLUME 82.8 fl (80-96); MEAN PLT VOLUME 9.7 fl (7.5-11.1); PLATELET COUNT 129 K/MM3 (134-434); RDW 13.7 % (11.6-15.6); WHITE BLOOD COUNT 5.2 K/mm3 (4.0-10.0)
--- NOTE | 2017-05-29 08:51 | PN ---
Physical Exam: SUBJECTIVE: Patient seen and examined this AM. No Cp, no SOB, no more headache. Nurses state no acute events overnight. Tele was reviewed, only alarm showed tachycardia with movements. OBJECTIVE: Vital Signs Period Temp Pulse Resp BP Sys/Guzmán Pulse Ox Last 24 Hr 98.0 F-98.6 F 90-106 16-20 124-151/66-105 98-100 GENERAL: The patient is awake, alert, and fully oriented, in no acute distress. HEENT: PERRL, extraocular movements intact, dry mucous membranes LUNGS: Breath sounds equal, clear to auscultation bilaterally, no wheezes, no crackles HEART: Regular rate and rhythm, S1, S2 without murmur, rub or gallop. ABDOMEN:Obese, Soft, nontender, nondistended, normoactive bowel sounds, no guarding EXTREMITIES: 2+ pulses, warm, well-perfused, no edema. NEUROLOGICAL: Cranial nerves II through XII grossly intact. No facial droop. Equal and intact sensation in face and body. Muscular strength 5/5. Reflexes 2+ . Normal speech, PSYCH: Normal mood, normal affect. Laboratory Results - last 24 hr 05/27/17 05/28/17 05/28/17 17:00 09:05 09:05 WBC 5.4 RBC 4.70 Hgb 13.1 Hct 38.8 MCV 82.5 MCH 27.9 MCHC 33.8 RDW 13.7 Plt Count 127 L MPV 9.4 Sodium 138 Potassium 3.9 Chloride 102 Carbon Dioxide 27 Anion Gap 9 BUN 7 D Creatinine 0.6 POC Glucometer Random Glucose 291 H Hemoglobin A1c % 9.9 H D Calcium 8.5 Phosphorus 3.1 Magnesium 2.1 Troponin I Triglycerides 209 H Cholesterol 185 Total LDL Cholesterol 109 H HDL Cholesterol 59 TSH 2.44 Free T4 0.86 05/28/17 05/28/17 05/28/17 11:41 15:49 18:30 WBC RBC Hgb Hct MCV MCH MCHC RDW Plt Count MPV Sodium Potassium Chloride Carbon Dioxide Anion Gap BUN Creatinine POC Glucometer 255 319 Random Glucose Hemoglobin A1c % Calcium Phosphorus Magnesium Troponin I < 0.02 Triglycerides Cholesterol Total LDL Cholesterol HDL Cholesterol TSH Free T4 05/29/17 05/29/17 05:45 06:32 WBC 5.2 RBC 4.67 Hgb 13.0 Hct 38.7 MCV 82.8 MCH 27.7 MCHC 33.5 RDW 13.7 Plt Count 129 L MPV 9.7 Sodium Potassium Chloride Carbon Dioxide Anion Gap BUN Creatinine POC Glucometer 257 Random Glucose Hemoglobin A1c % Calcium Phosphorus Magnesium Troponin I Triglycerides Cholesterol Total LDL Cholesterol HDL Cholesterol TSH Free T4 Active Medications Generic Name Dose Route Start Last Admin Trade Name Freq PRN Reason Stop Dose Admin Acetaminophen 650 mg 05/27/17 15:57 05/28/17 13:26 Tylenol - PO 650 mg Q4H PRN Administration FEVER OR PAIN Aspirin 325 mg 05/28/17 11:15 05/28/17 19:02 Ecotrin - PO Not Given DAILY MARIA T Atorvastatin Calcium 20 mg 05/29/17 22:00 Lipitor - PO HS MARIA T Clopidogrel Bisulfate 75 mg 05/29/17 10:00 Plavix - PO DAILY MARIA T Insulin Aspart 1 vial 05/28/17 10:55 05/29/17 06:43 Novolog Vial Sliding Scale - SQ 6 units TIDAC MARIA T Administration Protocol ASSESSMENT/PLAN: This is a 37 yo obese F with PMH of NIDDM, HLD, GERD, who presents due to L sided pleuritic chest pain, and L facial droop and LUE numbness which resolved within minutes. # Atypical chest pain - Patient's CP was pleuritic and reproducible, +orthopnea; currently is not reproducible, able to lie flat - R/o PE - +ddimer, DVT is negative, obese, pleuritic, CTA Chest - No pulmonary embolism, no pneumothorax, no infiltrate. - Less likely ACS - negative trops, no EKG cx, but will get monitor Lipid panel , A1C, thyroid function; s/p ASA 162mg PO once. - Stress test performed today was negative. However the patient had a bout of chest pain after the stress test with nausea. Troponins were ordered, trending. - Patient is on Plavix 75mg Daily, Atorvastatin 40mg QHS - Echo shows normal LV ejection fraction, limited visualization cannot exclude wall motion abnormalities. There are signs consistent with, but not diagnostic of poor LV compliance (diastolic failure). - Cardio on board, appreciate reccs # TIA - Because patient presented with L facial droop and L upper extremity numbness, she is receiving a CVA workup (CT, carotid dopplers, MRI) which were all negative # Hypovolemia - Patient has dry mucous membranes, started IV NS 75ml/hr # Hyperlipidemia (Total chol 215) - Increase Lipitor to 40mg PO QHS # Non-Insulin Dependent Diabetes Mellitus 2 - Blood glucose monitoring before meals - AM glucose currently 257 - Continue novolog sliding scale FEN - Fluids: IV NS 75ml/hr - Electrolytes: Monitor - Nutrition: Diabetic, sodium restricted diet # Prophylaxis - DVT: SCDs ordered - GI: not needed Visit type - Emergency Visit Emergency Visit: No - New Patient This patient is new to me today: No - Critical Care Critical Care patient: No - Discharge Referral Referred to [facility] Med P.C.: No
[2017-05-29 09:42] LABS: ANION GAP 9 (8-16); CALCIUM 8.6 mg/dL (8.5-10.1); CO2 26 mmol/L (21-32); CREATININE 0.6 mg/dL (0.55-1.02); GLUCOSE,RANDOM 276 mg/dL (74-106)
[2017-05-29] MEDS ORDERED: INSULIN (NOVOLOG) ASPART 100 UNITS/ML 10ML VIAL ONE (12:08)
--- NOTE | 2017-05-29 13:06 | PN ---
Teaching Attending Note Name of Resident: Richard Mccartney ATTENDING PHYSICIAN STATEMENT I saw and evaluated the patient. I reviewed the resident's note and discussed the case with the resident. I agree with the resident's findings and plan as documented. SUBJECTIVE: no fever or chills, has nausea , and L sided chest pain. just came back from stress test . OBJECTIVE: NAD , no facial droop , EOMI. Cv: RRR, tachy in 110s . CP not reproducible Lungs: CTAB ext: no edema ASSESSMENT AND PLAN: 37 y.o lady with h/o DM , HL , and GERD who presented with L sided CP and reported L sided numbness and facial droop 1- CP. Now pain recurred. and patient has nausea and tachycardia . - stat EKG with flatening of TW in lateral leads in setting of sinus tachycardia. otherwise no change from before . - check stat trop , then repeat - stress test pending read - telet ,reviewed no events other than sinus tachycardia - cont Plavix 2- HLP :cont lipitor in place of zocor 3- L sided facial droop, and L sided numbness: - CT head neg - MRI pending , but pt prefers to have it as out pt if it is the only reason for her to stay. She understand the need for it and is willing to follow up - titer control of DM, Anti plt , statin , and life style modification 4- DM : A1c 9.9, need more control add metformin to glipizide. had GI side effects in past, but wiling to try again. insurance did not cover januvia in past dispo :monitor her CP , N/V, and tachycardia. if resolved and stress test neg , can be dc
[2017-05-29 13:35] LABS: TROPONIN I < 0.02 ng/ml (0.00-0.05)
--- NOTE | 2017-05-29 14:07 | PN ---
Progress Note, Physician History of Present Illness: This is a 37 yo F with PMH of NIDDM, HLD, GERD, who presents due to chest pain that started 2 hours ago and has mostly resolved since. She states that she was sitting at dinner table, calmly doing paperwors when suddenly she developed sharp left sided chest pain radiating to her back and associated with L facial and L arm numbness as well as palpitations. It is aggravated by deep inspiration and elicited by pressing on sternum. It has no cleat alleviating factors. She then lost memory of what happened but per boyfriends, her speech turned slurry and she developed L facial droop and L arm slouching. She spontaneously returned to baseline within minutes but continued to have chest pain. She denies similar symptoms in the past but reports occasional past palpitations and tachycardia. She denies sob, cough, n/v, h/a, currentl numbness or weakness, loss of bowel control, abd pain, diarrhea, constipation, f /c. She denies recent travel, calf pain, hemoptysis, PO conraceptives, history of blood clots. ER course was notable for: (1)labs (2)cxr, ekg - Current Medication List Current Medications: Active Medications Acetaminophen (Tylenol -) 650 mg PO Q4H PRN PRN Reason: FEVER OR PAIN Last Admin: 05/28/17 13:26 Dose: 650 mg Atorvastatin Calcium (Lipitor -) 20 mg PO HS MARIA T Clopidogrel Bisulfate (Plavix -) 75 mg PO DAILY MARIA T Insulin Aspart (Novolog Vial Sliding Scale -) 1 vial SQ TIDAC MARIA T PRN Reason: Protocol Last Admin: 05/29/17 12:15 Dose: 4 units - Objective Vital Signs: Vital Signs Temperature 98.0 F 05/29/17 06:00 Pulse Rate 93 H 05/29/17 06:00 Respiratory Rate 20 05/29/17 06:00 Blood Pressure 124/78 05/29/17 06:00 O2 Sat by Pulse Oximetry (%) 98 05/28/17 21:25 Labs: CBC, BMP 05/29/17 05:45 05/29/17 05:45 INR, PTT INR 1.01 (0.82-1.09) 05/27/17 12:55
[2017-05-29] MEDS ORDERED: diazePAM 5 MG TABLET ONE (15:09)
[2017-05-29] MEDS: LISINOPRIL 5 MG TABLET (FP) PO SCH (15:14)
[2017-05-29] MEDS: CLOPIDOGREL BISULFATE 75 MG TABLET (FP) PO SCH (15:14)
--- NOTE | 2017-05-29 15:44 | EKG ---
Test Reason : Blood Pressure : / mmHG Vent. Rate : 107 BPM Atrial Rate : 107 BPM P-R Int : 136 ms QRS Dur : 080 ms QT Int : 348 ms P-R-T Axes : 041 054 018 degrees QTc Int : 464 ms SINUS TACHYCARDIA OTHERWISE NORMAL ECG WHEN COMPARED WITH ECG OF 28-MAY-2017 11:39, NO SIGNIFICANT CHANGE WAS FOUND Confirmed by SILVANA LOWE MD ([id number]) on 05/29/2017 3:44:37 PM Referred By: Confirmed By:SILVANA LOWE MD
[2017-05-29] MEDS ORDERED: SODIUM CHLORIDE 1,000 ML IV SCH (18:15)
[2017-05-29] MEDS ORDERED: ATORVASTATIN CA 20 MG TABLET (FP) PO SCH (22:00)
[2017-05-29] MEDS ORDERED: ATORVASTATIN CA 40 MG TABLET (FP) PO SCH (22:00)
[2017-05-30] MEDS: INSULIN SLIDING SCALE (NOVOLOG) 1 VIAL SQ SCH ×2 (06:07→12:08)
[2017-05-30 07:18] LABS: MCH 28.5 pg (25.7-33.7); MCHC 34.2 g/dl (32.0-36.0); MEAN CELL VOLUME 83.4 fl (80-96); MEAN PLT VOLUME 9.8 fl (7.5-11.1); PLATELET COUNT 122 K/MM3 (134-434); RDW 13.9 % (11.6-15.6); WHITE BLOOD COUNT 5.8 K/mm3 (4.0-10.0)
[2017-05-30 07:52] LABS: ANION GAP 8 (8-16); CALCIUM 8.6 mg/dL (8.5-10.1); CO2 29 mmol/L (21-32); CREATININE 0.6 mg/dL (0.55-1.02); GLUCOSE,RANDOM 262 mg/dL (74-106)
[2017-05-30 09:15] VITALS: BP 115/66; PULSE 106; TEMP 98
[2017-05-30] MEDS: LISINOPRIL 5 MG TABLET (FP) PO SCH (09:24)
[2017-05-30] MEDS: CLOPIDOGREL BISULFATE 75 MG TABLET (FP) PO SCH (09:24)
--- NOTE | 2017-05-30 13:11 | DS ---
Physical Exam: SUBJECTIVE: Patient seen and examined OBJECTIVE: Vital Signs Period Temp Pulse Resp BP Sys/Guzmán Pulse Ox Last 24 Hr 97.7 F-98.7 F 94-119 18-20 104-134/61-85 98 PHYSICAL EXAM GENERAL: The patient is awake, alert, and fully oriented, in no acute distress. HEENT: PERRL, extraocular movements intact, dry mucous membranes LUNGS: Breath sounds equal, clear to auscultation bilaterally, no wheezes, no crackles HEART: Regular rate and rhythm, S1, S2 without murmur, rub or gallop. ABDOMEN:Obese, Soft, nontender, nondistended, normoactive bowel sounds, no guarding EXTREMITIES: 2+ pulses, warm, well-perfused, no edema. NEUROLOGICAL: Cranial nerves II through XII grossly intact. No facial droop. Equal and intact sensation in face and body. Muscular strength 5/5. Reflexes 2+ . Normal speech, PSYCH: Normal mood, normal affect. LABS Laboratory Results - last 24 hr 05/29/17 05/29/17 05/29/17 12:58 17:52 19:00 WBC RBC Hgb Hct MCV MCH MCHC RDW Plt Count MPV Sodium Potassium Chloride Carbon Dioxide Anion Gap BUN Creatinine POC Glucometer 239 Random Glucose Calcium Creatine Kinase 110 Troponin I < 0.02 < 0.02 05/30/17 05/30/17 05/30/17 05:35 05:35 05:36 WBC 5.8 RBC 4.44 Hgb 12.6 Hct 37.0 MCV 83.4 MCH 28.5 MCHC 34.2 RDW 13.9 Plt Count 122 L MPV 9.8 Sodium 139 Potassium 4.0 Chloride 102 Carbon Dioxide 29 Anion Gap 8 BUN 9 Creatinine 0.6 POC Glucometer 255 Random Glucose 262 H Calcium 8.6 Creatine Kinase Troponin I 05/30/17 12:04 WBC RBC Hgb Hct MCV MCH MCHC RDW Plt Count MPV Sodium Potassium Chloride Carbon Dioxide Anion Gap BUN Creatinine POC Glucometer 233 Random Glucose Calcium Creatine Kinase Troponin I HOSPITAL COURSE: Date of Admission:05/27/17 Date of Discharge: 05/30/17 This is a 37 yo obese F with PMH of NIDDM, HLD, GERD, who presents due to L sided pleuritic chest pain, and L facial droop and LUE numbness which resolved within minutes. # Atypical chest pain - Patient's CP was pleuritic and reproducible, +orthopnea; currently is not reproducible, able to lie flat - R/o PE - +ddimer, DVT is negative, obese, pleuritic, CTA Chest - No pulmonary embolism, no pneumothorax, no infiltrate. - Less likely ACS - negative trops, no EKG cx, but will get monitor Lipid panel , A1C, thyroid function; s/p ASA 162mg PO once. - Stress test performed today was negative. However the patient had a bout of chest pain after the stress test with nausea. Troponins were ordered, trending. - Patient is on Plavix 75mg Daily, Atorvastatin 40mg QHS - Echo shows normal LV ejection fraction, limited visualization cannot exclude wall motion abnormalities. There are signs consistent with, but not diagnostic of poor LV compliance (diastolic failure). - Cardio on board, appreciate reccs # TIA - Because patient presented with L facial droop and L upper extremity numbness, she is receiving a CVA workup (CT, carotid dopplers, MRI) which were all negative # Hypovolemia - Patient has dry mucous membranes, started IV NS 75ml/hr # Hyperlipidemia (Total chol 215) - Increase Lipitor to 40mg PO QHS # Non-Insulin Dependent Diabetes Mellitus 2 - Blood glucose monitoring before meals - AM glucose currently 257 - Continue novolog sliding scale FEN - Fluids: IV NS 75ml/hr - Electrolytes: Monitor - Nutrition: Diabetic, sodium restricted diet # Prophylaxis - DVT: SCDs ordered - GI: not needed Minutes to complete discharge: 45 Discharge Summary Reason For Visit: CHEST PAIN Current Active Problems Atypical chest pain (Acute) HLD (hyperlipidemia) (Chronic) Hypertension (Chronic) Non-insulin dependent type 2 diabetes mellitus (Chronic) Condition: Improved - Instructions Diet, Activity, Other Instructions: You came to the hospital because you had chest pain. We took some images and did some tests, and it seems like the chest pain is not related to your heart or lungs. We want you to keep an eye out for any more chest pain. During the hospitalization, we also gave you a new blood pressure medication which we want you to take every day (Lisinopril). We also increased your anticholesterol medication. We are also giving you a new diabetes medication called Metformin. We will start you on a new medication called Plavix, which helps your blood vessels. We will start you on 1000mg every day. We understand you had stomach issues in the past with Metformin, if you have any of those symptoms, please go to your doctor so that they can change it to another medication. We are also going to refer you to a Double Surface Operator for a sleep study to rule out sleep apnea. Please continue to adhere to a low carbohydrate, low fat diet. Please continue to exercise everyday. Please followup with your Primary Care Doctor, Psychiatrist, Flight Operations Manager, and the Double Surface Operator If you have any serious symptoms please return back to the Emergency Department Referrals: Bertin Romero MD [Staff Physician] - 2 Weeks (For Sleep study) Javier Abdi MD [Staff Physician] - 2 Weeks Sam Lantigua MD [Primary Care Provider] - 2 Weeks Brad Trotter MD [Staff Physician] - 2 Weeks Disposition: HOME - Home Medications Comprehensive Discharge Medication List: Ambulatory Orders Atorvastatin Ca [Lipitor] 40 mg PO HS #25 tablet 05/30/17 Clopidogrel Bisulfate [Plavix -] 75 mg PO DAILY #25 tablet 05/30/17 Lisinopril [Prinivil] 5 mg PO DAILY #15 tablet 05/30/17 Metformin HCl [Glucophage] 1,000 mg PO DAILY #25 tablet 05/30/17 - Discharge Referral Referred to [facility] Med P.C.: No
--- NOTE | 2017-05-30 14:18 | PN ---
Teaching Attending Note Name of Resident: Richard Mccartney ATTENDING PHYSICIAN STATEMENT I saw and evaluated the patient. I reviewed the resident's note and discussed the case with the resident. I agree with the resident's findings and plan as documented. SUBJECTIVE: no fever or chills. has no CP or SOB or weakness OBJECTIVE: NAD , no facial droop , EOMI. Cv: RRR, tachy in 110s . CP not reproducible Lungs: CTAB ext: no edema EOMI, round equal pupils , no facial droop. strength 5/5 in upper and lower ext proximally and distally . sensati on tolight touch NL. . ASSESSMENT AND PLAN: 37 y.o lady with h/o DM , HL , and GERD who presented with L sided CP and reported L sided numbness and facial droop 1- Atypical CP . resolved . Stress test neg . also EKG and trop Neg. tachycardia resolved. and pt is comfortable no events on tele 2- HLP :cont lipitor in place of zocor 3- L sided facial droop, and L sided numbness: MRI neg fro a stroke. possible TIA. cont plavix and lisinopril DM control diet and exercise 4- DM : A1c 9.9, need more control add metformin cont glipizide dc home . all instruction were d/w her in details .
--- NOTE | 2017-05-30 15:15 | DS ---
Physical Exam: SUBJECTIVE: Patient seen and examined this AM. SHe has no acute complaints. No chest pain, no shortness of breath. OBJECTIVE: Vital Signs Period Temp Pulse Resp BP Sys/Guzmán Pulse Ox Last 24 Hr 97.7 F-98.7 F 94-113 20-20 104-134/61-73 98 PHYSICAL EXAM GENERAL: The patient is awake, alert, and fully oriented, in no acute distress. HEENT: PERRL, extraocular movements intact, dry mucous membranes LUNGS: Breath sounds equal, clear to auscultation bilaterally, no wheezes, no crackles HEART: Regular rate and rhythm, S1, S2 without murmur, rub or gallop. ABDOMEN:Obese, Soft, nontender, nondistended, normoactive bowel sounds, no guarding EXTREMITIES: 2+ pulses, warm, well-perfused, no edema. NEUROLOGICAL: Cranial nerves II through XII grossly intact. No facial droop. Equal and intact sensation in face and body. Muscular strength 5/5. Reflexes 2+ . Normal speech, PSYCH: Normal mood, normal affect. LABS Laboratory Results - last 24 hr 05/29/17 05/29/17 05/30/17 17:52 19:00 05:35 WBC 5.8 RBC 4.44 Hgb 12.6 Hct 37.0 MCV 83.4 MCH 28.5 MCHC 34.2 RDW 13.9 Plt Count 122 L MPV 9.8 Sodium Potassium Chloride Carbon Dioxide Anion Gap BUN Creatinine POC Glucometer 239 Random Glucose Calcium Troponin I < 0.02 05/30/17 05/30/17 05/30/17 05:35 05:36 12:04 WBC RBC Hgb Hct MCV MCH MCHC RDW Plt Count MPV Sodium 139 Potassium 4.0 Chloride 102 Carbon Dioxide 29 Anion Gap 8 BUN 9 Creatinine 0.6 POC Glucometer 255 233 Random Glucose 262 H Calcium 8.6 Troponin I HOSPITAL COURSE: Date of Admission:05/27/17 Date of Discharge: 05/30/17 Ms. Claudia Brown is a 37yo female with a past medical history of obesity, diabetes mellitus (non-insulin dependent), high cholesterol, GERD, who presented to the Emergency Department with Left sided pleuritic, reproducible chest pain with left sided facial droop and left sided upper extremity numbness that resolved within minutes. She states that she was having a verbal argument with her family member before this happened. # Atypical chest pain - When the patient was admitted she had tachycardia (120s). We were initially concerned with a cardio or pulmonary pathology. To rule out any pulmonary pathology, we obtained bilateral duplex scans which were negative, and a CTA of the chest which showed no pulmonary embolism, no pneumothorax, and no infiltrate. To rule out any cardiac pathology, we ordered cardiac troponins which were negative, and an EKG which showed no new changes. The patient obtained a stress test during the hospitalization which was negative. However, right after the stress test, the patient felt chest pressure with nausea and vomitting. A new EKG was ordered with showed T wave changes and tachycardia. New troponins were ordered which were also negative. We have ruled out that the patient's chest pain is from an acute cardio or pulmonary event, and more likely due to musculoskelatal or somatic process. # TIA - Because patient presented with L facial droop and L upper extremity numbness, she received a CVA workup (CT, carotid dopplers, MRI) which were all negative. Since the neurological symptos were only witnessed by her fiance and not medical staff, TIA cannot be ruled out. BEcause of the patient's high risk factors, we pursued secondary risk factor control. The patient will be discharged with Plavix 75mg daily and Atorvastatin 40mg QHS. The patient refused aspirin, claiming she had a reaction in the past. # High Blood Pressure - During the hospitalization, the patient had a BP max of 151/105. She was not taking any blood pressure medication at home. We added Lisinopril 5mg QD, the patient's blood pressure came down, and at discharge it is 115/66 # Non-Insulin Dependent Diabetes Mellitus 2 - We monitored the patient's blood glucose before meals and put her on a novalog sliding scale. Her sugars were consistently high in the 250s. We will discharge her with Metformin 1000mg daily in addition to her home Glipizide. We spoke with her about following a low carbohydate, low fat diet, along with exercise. She expressed understanding. We informed the patient that she needs to followup with Psychiatry. She stated to one of the doctors that she used to follow with a psychologist and it helps her get better control of her life, especially with six children. The patient was made aware of her hospital course and verbalized understanding. She was told to maintain strict followup with her doctors. Minutes to complete discharge: 45 Discharge Summary Reason For Visit: CHEST PAIN Condition: Improved - Instructions Diet, Activity, Other Instructions: You came to the hospital because you had chest pain. We took some images and did some tests, and it seems like the chest pain is not related to your heart or lungs. We want you to keep an eye out for any more chest pain. During the hospitalization, we also gave you a new blood pressure medication which we want you to take every day (Lisinopril). We also put you on lipitor . We are also giving you a new diabetes medication called Metformin, We will start you on 1000mg every day. We will start you on a new medication called Plavix, which helps your blood vessels. . We understand you had stomach issues in the past with Metformin, if you have any of those symptoms, please go to your doctor so that they can change it to another medication. We are also going to refer you to a Boiler Riveter for a sleep study to rule out sleep apnea. Please continue to adhere to a low carbohydrate, low fat diet. Please continue to exercise everyday. Please followup with your Primary Care Doctor, Psychiatrist, X Ray Technician, and the Boiler Riveter If you have any serious symptoms please return back to the Emergency Department Referrals: Bertin Romero MD [Staff Physician] - 2 Weeks (For Sleep study) Javier Abdi MD [Staff Physician] - 2 Weeks Sam Lantigua MD [Primary Care Provider] - 2 Weeks Brad Trotter MD [Staff Physician] - 2 Weeks Disposition: HOME - Home Medications Comprehensive Discharge Medication List: Ambulatory Orders Atorvastatin Ca [Lipitor] 40 mg PO HS #25 tablet 05/30/17 Clopidogrel Bisulfate [Plavix -] 75 mg PO DAILY #25 tablet 05/30/17 Glipizide 10 mg PO BID #60 tablet 05/30/17 Lisinopril [Prinivil] 5 mg PO DAILY #15 tablet 05/30/17 Metformin HCl [Glucophage] 1,000 mg PO DAILY #25 tablet 05/30/17 This patient is new to me today: No Emergency Visit: No Critical Care patient: No - Discharge Referral Referred to [facility] Med P.C.: No
== END 2017-05-30 14:45 | disposition home or self-care (01) ==
LOC: JER 12:11 → JERBED 16:04 → J4W 18:15
PROVIDERS: ADMIT Internal Medicine; ATTEND Internal Medicine
PROC: 3E033VG Introduction of Insulin into Peripheral Vein, Percutaneous Approach (ICD-10-PCS; principal; 2017-05-27)
PROC: 3E0337Z Introduction of Electrolytic and Water Balance Substance into Peripheral Vein, Percutaneous Approach (ICD-10-PCS; 2017-05-27)
DX: R07.89 Other chest pain (principal); G45.9 Transient cerebral ischemic attack, unspecified; I10 Essential (primary) hypertension; E66.01 Morbid (severe) obesity due to excess calories; E11.65 Type 2 diabetes mellitus with hyperglycemia; Z68.43 Body mass index [BMI] 50.0-59.9, adult; E78.5 Hyperlipidemia, unspecified; K21.9 Gastro-esophageal reflux disease without esophagitis; Z91.018 Allergy to other foods; Z79.84 Long term (current) use of oral hypoglycemic drugs; R06.01 Orthopnea; L02.91 Cutaneous abscess, unspecified; Z48.00 Encounter for change or removal of nonsurgical wound dressing; K52.9 Noninfective gastroenteritis and colitis, unspecified; D72.819 Decreased white blood cell count, unspecified; D69.6 Thrombocytopenia, unspecified; M43.6 Torticollis; J06.9 Acute upper respiratory infection, unspecified; B97.89 Other viral agents as the cause of diseases classified elsewhere; N39.0 Urinary tract infection, site not specified; E86.1 Hypovolemia
CPT/HCPCS: 36415; 70450-TC; 70551-TC; 71020-TC; 71260-TC; 78452-TC; 80048; 80053; 80061; 82465; 82550; 83036; 83721; 83735; 84100; 84439; 84443; 84484; 84703; 85025; 85027; 85379; 85610; 93005; 93010; 93017; 93306-TC; 93880-TC; 93970-TC; 99284-25; A9502; G0378

== ENCOUNTER 2017-06-18 03:58 | Inpatient (IN) | payer OTHER ==
[2017-06-18] MEDS ORDERED: ONDANSETRON 4 MG/2 ML VIAL IVPB ONE (04:01)
[2017-06-18] MEDS ORDERED: SODIUM CHLORIDE 1,000 ML IV STA ×2 (04:01→06:01)
[2017-06-18] MEDS ORDERED: ONDANSETRON 4 MG/2 ML VIAL ONE (04:06)
[2017-06-18 04:20] LABS: URINE APPEARANCE SLCLOUDY; URINE BILIRUBIN NEGATIVE (NEGATIVE); URINE BLOOD 2+ (NEGATIVE); URINE COLOR LTYELLOW; URINE GLUCOSE (UA) 2+ (NEGATIVE); URINE KETONE NEGATIVE (NEGATIVE); URINE NITRITE POSITIVE (NEGATIVE); URINE UROBILINOGEN NEGATIVE mg/dL (0.2-1.0)
[2017-06-18 04:34] LABS: URINE LEUK ESTERASE 1+ (NEGATIVE); URINE PROTEIN 1+ (NEGATIVE)
[2017-06-18] MEDS ORDERED: SODIUM CHLORIDE 0.9% 1000 ML INFUS.BAG IV PRN (04:36)
--- NOTE | 2017-06-18 04:36 | PDOC ---
History of Present Illness - General Chief Complaint: SIRS, Suspected/Possible Stated Complaint: NAUSEA,LWR BACK PAIN Time Seen by Provider: 06/18/17 04:01 History Source: Patient - History of Present Illness Initial Comments: 06/18/17 04:47 37-year-old woke up at 2:15 AM with chills, right flank pain, nausea vomiting and fever. Patient reported that she was in his usual state of health prior to 2 :15 this morning. Patient was discharged from this hospital for chest pain/TIA on . Patient has a past medical history of hyperlipidemia, hypertension, diabetes. Patient currently on Plavix. patient denies headache, chest pain, abdominal pain, diarrhea. PMD: Noreen rausch [facility] Past History - Past Medical History Allergies/Adverse Reactions: Allergies Allergy/AdvReac Type Severity Reaction Status Date / Time aspirin Allergy Mild shaking Verified 06/18/17 05:11 grapes Allergy Uncoded 06/18/17 05:11 mushrooms Allergy Uncoded 06/18/17 05:11 Home Medications: Ambulatory Orders Atorvastatin Ca [Lipitor] 40 mg PO HS #25 tablet 05/30/17 Clopidogrel Bisulfate [Plavix -] 75 mg PO DAILY #25 tablet 05/30/17 Glipizide 10 mg PO BID #60 tablet 05/30/17 Lisinopril [Prinivil] 5 mg PO DAILY #15 tablet 05/30/17 Metformin HCl [Glucophage] 1,000 mg PO DAILY #25 tablet 05/30/17 Asthma: Yes Diabetes: Yes HTN: Yes Hypercholesterolemia: Yes - Psycho/Social/Smoking Cessation Hx Anxiety: No Suicidal Ideation: No Smoking History: Never smoked Have you smoked in the past 12 months: No Hx Alcohol Use: No Drug/Substance Use Hx: No Substance Use Type: None Hx Substance Use Treatment: No Review of Systems - Review of Systems Able to Perform ROS?: Yes Is the patient limited Welsh proficient: No Constitutional: Yes: Chills, Fever Cardiac (ROS): No: Symptoms Reported, See HPI, Chest Pain, Edema, Irregular Heart Rate, Lightheadedness, Palpitations, Syncope, Chest Tightness, Other : Yes: Dysuria, Flank Pain (right ). No: Symptoms Reported, See HPI, Burning , Discharge, Frequency, Hematuria, Incontinence, Pain, Urgency, Testicular Mass , Testicular Swelling, Lesions, Testicular Pain, Other Neurological: No: Symptoms reported, See HPI, Headache, Numbness, Paresthesia, Pre-Existing Deficit, Seizure, Tingling, Tremors, Weakness, Unsteady Gait, Ataxia, Dizziness, Other *Physical Exam - Vital Signs 06/18/17 05:57 Last Vital Signs Temp Pulse Resp BP Pulse Ox 101.5 F H 103 H 18 115/75 93 L 06/18/17 04:03 06/18/17 04:03 06/18/17 04:03 06/18/17 04:03 06/18/17 04:03 - Physical Exam General Appearance: Yes: Mild Distress HEENT: negative: EOMI, CELSA, Normal ENT Inspection, Normal Voice, Symmetrical, TMs Normal, Pharynx Normal, Pale Conjunctivae, Photophobia, Scleral Icterus (R) , Scleral Icterus (L), Muffled/Hoarse voice, Pharyngeal Erythema, Tonsillar Exudate, Tonsillar Erythema, Nasal Congestion, Rhinorrhea, Sinus Tenderness, Orbits, Hearing Decreased, Hearing Grossly Normal, TM Bulging, TM Dull, TM Erythema, Lesions, Dangelo, Excessive drooling, Thrush, Other Respiratory/Chest: positive: Lungs Clear, Normal Breath Sounds Cardiovascular: positive: Regular Rhythm, Regular Rate Gastrointestinal/Abdominal: positive: Normal Bowel Sounds, Soft, Other ( suprapubic tenderness) Musculoskeletal: positive: CVA Tenderness (R) Extremity: positive: Normal Capillary Refill, Normal Inspection, Normal Range of Motion Neurologic: positive: Fully Oriented, Alert, Normal Mood/Affect Heart Score/ECG Review - ECG Intrepretation Rhythm: Regular Rhythm Comment:: 06/18/17 06:04 Sinus tachycardia with short CO: 134 bpm ED Treatment Course - LABORATORY CBC & Chemistry Diagram: 06/18/17 04:32 06/18/17 04:32 Progress Note - Progress Note Progress Note: A: SIRS/ pyelonephritis; tachycardia P: cbc cmp lactic acid *DC/Admit/Observation/Transfer Diagnosis at time of Disposition: Pyelonephritis, Systemic inflammatory response syndrome (SIRS), Tachycardia with heart rate 121-140 beats per minute - Discharge Dispostion Admit: Yes
[2017-06-18 04:37] LABS: URINE BACTERIA MANY /hpf (NONE SEEN); URINE HYALINE CAST 2 /lpf; URINE MUCUS RARE; URINE RBC 12 /hpf (0-3); URINE WBC 69 /hpf (3-5); YEAST MODERATE
[2017-06-18 04:39] LABS: BASOPHIL 0.2 % (0-2.0); MCH 27.6 pg (25.7-33.7); MCHC 33.4 g/dl (32.0-36.0); MEAN CELL VOLUME 82.5 fl (80-96); MEAN PLT VOLUME 9.3 fl (7.5-11.1); NEUTROPHILS 85.5 % (42.8-82.8); PLATELET COUNT 112 K/MM3 (134-434); RDW 13.4 % (11.6-15.6); WHITE BLOOD COUNT 9.2 K/mm3 (4.0-10.0)
[2017-06-18 05:01] LABS: ALBUMIN 3.3 g/dl (3.4-5.0); ALK PHOS 98 U/L (45-117); ANION GAP 8 (8-16); CALCIUM 8.4 mg/dL (8.5-10.1); CO2 26 mmol/L (21-32); CREATININE 0.8 mg/dL (0.55-1.02); GLUCOSE,RANDOM 270 mg/dL (74-106); SGOT/AST 13 U/L (15-37); SGPT/ALT 27 U/L (12-78); TOT PROT 7.1 g/dl (6.4-8.2)
[2017-06-18 05:06] LABS: VENOUS BLOOD GAS HCO3 23.8 meq/L (19-25); VENOUS PH 7.32 (7.32-7.42)
[2017-06-18 05:09] VITALS: BMI 53.7
[2017-06-18] MEDS ORDERED: ACETAMINOPHEN 325 MG TABLET (FP) PO ONE (05:12)
--- NOTE | 2017-06-18 05:16 | PDOC ---
*Physical Exam - Vital Signs Last Vital Signs Temp Pulse Resp BP Pulse Ox 101.5 F H 103 H 18 115/75 93 L 06/18/17 04:03 06/18/17 04:03 06/18/17 04:03 06/18/17 04:03 06/18/17 04:03 ED Treatment Course - LABORATORY CBC & Chemistry Diagram: 06/18/17 04:32 06/18/17 04:32 - ADDITIONAL ORDERS Additional order review: Laboratory Results 06/18/17 06/18/17 06/18/17 05:00 04:32 04:32 VBG pH 7.32 POC VBG pCO2 47.3 POC VBG pO2 46.5 Mixed VBG HCO3 23.8 Sodium 137 Potassium 3.7 Chloride 103 Carbon Dioxide 26 Anion Gap 8 BUN 10 Creatinine 0.8 D Creat Clearance w eGFR > 60 Random Glucose 270 H Calcium 8.4 L Total Bilirubin 1.0 D AST 13 L D ALT 27 Alkaline Phosphatase 98 Total Protein 7.1 Albumin 3.3 L Lipase 114 Serum , Qual Negative Urine Color Urine Appearance Urine pH Urine Protein Urine Glucose (UA) Urine Ketones Urine Blood Urine Nitrite Urine Bilirubin Urine Urobilinogen Ur Leukocyte Esterase Urine RBC Urine WBC Ur Epithelial Cells Urine Bacteria Hyaline Casts Urine Mucus Urine Yeast 06/18/17 04:16 VBG pH POC VBG pCO2 POC VBG pO2 Mixed VBG HCO3 Sodium Potassium Chloride Carbon Dioxide Anion Gap BUN Creatinine Creat Clearance w eGFR Random Glucose Calcium Total Bilirubin AST ALT Alkaline Phosphatase Total Protein Albumin Lipase Serum , Qual Urine Color Ltyellow Urine Appearance Slcloudy Urine pH 5.0 Urine Protein 1+ H Urine Glucose (UA) 2+ H Urine Ketones Negative Urine Blood 2+ H Urine Nitrite Positive Urine Bilirubin Negative Urine Urobilinogen Negative Ur Leukocyte Esterase 1+ H Urine RBC 12 Urine WBC 69 Ur Epithelial Cells Rare Urine Bacteria Many Hyaline Casts 2 Urine Mucus Rare Urine Yeast Moderate 06/18/17 04:32 RBC 4.50 MCV 82.5 MCHC 33.4 RDW 13.4 MPV 9.3 Neutrophils % 85.5 H D Lymphocytes % 11.6 D Monocytes % 1.7 L Eosinophils % 1.0 Basophils % 0.2 - Medications Given in the ED: ED Medications Discontinued Medications Generic Name Dose Route Start Last Admin Trade Name Freq PRN Reason Stop Dose Admin Sodium Chloride 1,000 mls @ 1,000 mls/hr 06/18/17 04:01 06/18/17 04:15 Normal Saline - IV 06/18/17 05:00 1,000 mls/hr ASDIR STA Administration Ondansetron HCl 4 mg 06/18/17 04:01 06/18/17 04:15 Zofran Injection IVPB 06/18/17 04:02 4 mg ONCE ONE Administration Medical Decision Making - Medical Decision Making 06/18/17 05:16 agree with care from VLADIMIR Pate *DC/Admit/Observation/Transfer Diagnosis at time of Disposition: Pyelonephritis, SIRS (systemic inflammatory response syndrome), Tachycardia with heart rate 121-140 beats per minute
[2017-06-18 05:17] LABS: CPK 124 IU/L (26-192)
[2017-06-18 05:18] LABS: INR 1.07 (0.82-1.09); PROTHROMBIN TIME (PATIENT) 11.8 SEC (9.98-11.88); TROPONIN I < 0.02 ng/ml (0.00-0.05)
[2017-06-18] MEDS ORDERED: ACETAMINOPHEN 325 MG TABLET (FP) ONE (05:20)
[2017-06-18 05:21] LABS: ACTIVATED PTT 26.9 SECONDS (26.9-34.4)
[2017-06-18] MEDS ORDERED: CEFTRIAXONE 1 GM in DEXTROSE 5%-WATER - 100 ML IVPB ONE (05:35)
[2017-06-18] MEDS ORDERED: LEVOFLOXACIN 750 MG IVPB 150 ML IVPB ONE ×2 (05:40→05:44)
[2017-06-18] MEDS: SODIUM CHLORIDE 1,000 ML IV SCH (07:36)
--- NOTE | 2017-06-18 08:18 | HP ---
CHIEF COMPLAINT: fever, chills, vomiting, right flank pain PCP: Noreen Lucio HISTORY OF PRESENT ILLNESS: 37 yr old woman with HTN, DMII, HLD, presents with fever, chills, vomiting and right flank since 2:15am this morning. She was woken up from sleep from acute aching continous nonradiating right flank pain worse with urination with no alleviating factors. a/w nonbloody, watery bilious emesis 8x at home. Was in usual state of health yesterday night. Since discharge she has been compliant with medications, changed diet to low salt, diabetic diet, increased activity and has intentional weight loss of 3lbs. has a hx of gonorrhea in 2013 that was treated, no recent SRI's, 1 male partner without hx of SRI's. Denies RUQ pain, chest pain, palpitations, abdominal pain, vaginal discharge, constipation, headache, shortness of breath, hematuria. no previous hx of similar episodes. no family hx or personal hx of nephrolithiasis. Is due for a pap smear as outpatient(last one 2 yrs ago), no previous abnormal paps. ER course was notable for: (1) levofloxacin 750mg ivpb, IVF, lactic acid 3.8 -> repeat 1.4 (2) cxy - negative for acute pathology (3) u/a with RBC's, WBC's, 3+ leuk Recent Travel: none PAST MEDICAL HISTORY: HTN - controlled NIDDM II - uncontrolled, last HBA1C 9.9 PAST SURGICAL HISTORY: multiple c-sections, tubal ligation 10yrs ago Social History: lives with fiance and adult daughter, independent with ADL's Smoking: never, smoking exposure from father and friend intermittently Alcohol: denies Drugs: denies Family History: DM and HTN in paternal and maternal grandparents, grandmother from renal failure Allergies aspirin Allergy (Mild, Verified 06/18/17 05:11) shaking pt reported that it was when she was a child grapes Allergy (Uncoded 06/18/17 05:11) mushrooms Allergy (Uncoded 06/18/17 05:11) HOME MEDICATIONS: Home Medications Medication Instructions Recorded Atorvastatin Ca [Lipitor] 40 mg PO HS #25 tablet 05/30/17 Clopidogrel Bisulfate [Plavix -] 75 mg PO DAILY #25 tablet 05/30/17 Glipizide 10 mg PO BID #60 tablet 05/30/17 Lisinopril [Prinivil] 5 mg PO DAILY #15 tablet 05/30/17 Metformin HCl [Glucophage] 1,000 mg PO DAILY #25 tablet 05/30/17 REVIEW OF SYSTEMS CONSTITUTIONAL: Present: fever, chills, (intentional)weight change Absent: diaphoresis, generalized weakness, malaise, loss of appetite, HEENT: Absent: difficulty swallowing, mouth swelling, visual changes CARDIOVASCULAR: Absent: chest pain, syncope, palpitations, lightheadedness, peripheral edema RESPIRATORY: Absent: cough, shortness of breath, wheezing, GASTROINTESTINAL: Present:vomiting, diarrhea(with metformin use), Absent: abdominal pain, abdominal distension, nausea, constipation, melena, hematochezia GENITOURINARY: Present:dysuria, right flank pain Absent: frequency, urgency, hesitancy, hematuria, genital pain MUSCULOSKELETAL: Absent: myalgia, arthralgia, joint swelling, back pain, neck pain SKIN: Absent: rash, itching, pallor ENDOCRINE: Present: heat intolerance, cold intolerance (attributes it to pre-menopause, has irregular periods) Absent: unexplained weight gain, unexplained weight loss NEUROLOGIC: Absent: headache, focal weakness or paresthesias, dizziness, unsteady gait, mental status changes, bladder or bowel incontinence PHYSICAL EXAMINATION Vital Signs - 24 hr 06/18/17 07:00 Temperature 99.3 F Pulse Rate [ 132 H Left] Respiratory 18 Rate Blood Pressure 105/69 [Left Arm] O2 Sat by Pulse 94 L Oximetry (%) GENERAL: Awake, alert, and fully oriented, in no acute distress. HEAD: Normal with no signs of trauma. EYES: Pupils equal, round and reactive to light, extraocular movements intact, sclera anicteric, conjunctiva clear. No lid lag. EARS, NOSE, THROAT: nares patent, oropharynx clear without exudates. Moist mucous membranes. NECK: Normal range of motion, supple without lymphadenopathy, JVD, or masses. LUNGS: Breath sounds equal, clear to auscultation bilaterally. No wheezes, and no crackles. No accessory muscle use. HEART: tachycardia, regular rhythm, normal S1 and S2 without murmur, rub or gallop. ABDOMEN: Obese, soft, mild tenderness in right lateral-midquadrant, negative herron's/obturar's,psoas,rovsing's. not distended, normoactive bowel sounds, no guarding, no rebound, no masses. well-healed scars in lower abdomen. MUSCULOSKELETAL: Normal range of motion at all joints. No bony deformities or tenderness. right CVA tenderness to percussion, no left CVA tenderness. UPPER EXTREMITIES: 2+ radial pulses, warm, well-perfused. No cyanosis. No clubbing. No peripheral edema. LOWER EXTREMITIES: 2+ dp pulses, warm, well-perfused. No calf tenderness. No peripheral edema. NEUROLOGICAL: Cranial nerves II-XII intact. Normal speech. facial symmetry, 5/ 5 hand finance officer, 5/5 hip extension PSYCHIATRIC: Cooperative. Good eye contact. Appropriate mood and affect. SKIN: Warm, dry, normal turgor, no rashes or lesions noted, normal capillary refill. Laboratory Results - last 24 hr 06/18/17 06:41 Lactic Acid 1.4 Active Medications Atorvastatin Calcium (Lipitor -) 40 mg PO HS MARIA T Clopidogrel Bisulfate (Plavix -) 75 mg PO DAILY MARIA T Enoxaparin Sodium (Lovenox -) 40 mg SQ DAILY MARIA T Sodium Chloride (Normal Saline -) 1,000 mls @ 100 mls/hr IV ASDIR MARIA T Last Admin: 06/18/17 07:36 Dose: 100 mls/hr Levofloxacin (Levaquin 750 Mg Premixed Ivpb -) 150 mls @ 100 mls/hr IVPB ONCE ONE Stop: 06/19/17 07:29 Insulin Aspart (Novolog Vial Sliding Scale -) 1 vial SQ ACHS MARIA T PRN Reason: Protocol Lisinopril (Prinivil) 5 mg PO DAILY [facility] Sodium Chloride (Normal Saline -) 250 ml IV Q20M PRN PRN Reason: MAP<65mm Hg OR SBP <90 ASSESSMENT/PLAN: 37 yr old woman with uncontrolled DM, HTN, presents with right flank pain found to have lactic acidosis. #Severe sepsis(Tachycardia, fever, lactic acidosis, source- UTI/pyelo) - lactic acidosis could be due to metformin, though with flank pain and U/a, likely from pyelonephritis - levofloxacin 750mg IVPB received in ED this morning, continue levofloxacin 750mg IVPB tomorrow, will reassess once cx available - pt has hx of UTI with pansensitive E.coli - renal u/s for further evaluation given hematuria/pyuria - negative for hydronephrosis/nephrolithiasis. - continue IVF NS@100cc while on abx and until taking adequate po, last meal 7pm last night, no further episodes, will advance diet #Tachycardia - pt has no cardiac complaints, recent echo/stress test normal. likely due to fever, thought patient always has rate >100 as per chart review. #DMII - uncontrolled - hold metformin and glipizide, due to recent lactic acidosis and possible need for further imaging - NISS and BGM's ACHS #HTN - controlled - lisinopril 5mg po daily #Possible TIA on previous admission(w/u negative with MRI,CT), however given risk factors, pt to continue home med - Plavix 75mg daily #HLD - Atorvastatin 40mg QHS #DVT - lovenox 40 sq daily - encourage ambulation #Obesity - counseled pt on diet and exercise, pt has a plan and will continue progress after discharge #Diet - diabetic/low sodium Visit type - Emergency Visit Emergency Visit: Yes ED Registration Date: 06/18/17 Care time: The patient presented to the Emergency Department on the above date and was hospitalized for further evaluation of their emergent condition. - New Patient This patient is new to me today: Yes Date on this admission: 06/19/17 - Critical Care Critical Care patient: No
[2017-06-18] MEDS: INSULIN SLIDING SCALE (NOVOLOG) 1 VIAL SQ SCH ×2 (10:00→18:32)
[2017-06-18] MEDS: CLOPIDOGREL BISULFATE 75 MG TABLET (FP) PO SCH (11:08)
[2017-06-18] MEDS: ENOXAPARIN NA (PORCINE) 40 MG/0.4 ML DISP.SYRIN SQ SCH (11:08)
[2017-06-18] MEDS: LISINOPRIL 5 MG TABLET (FP) PO SCH (11:09)
--- NOTE | 2017-06-18 13:08 | EKG ---
Test Reason : Blood Pressure : / mmHG Vent. Rate : 134 BPM Atrial Rate : 134 BPM P-R Int : 000 ms QRS Dur : 078 ms QT Int : 386 ms P-R-T Axes : 000 048 014 degrees QTc Int : 576 ms SINUS TACHYCARDIA WITH SHORT MO CANNOT RULE OUT ANTERIOR INFARCT , AGE UNDETERMINED T WAVE ABNORMALITY, CONSIDER INFEROLATERAL ISCHEMIA ABNORMAL ECG WHEN COMPARED WITH ECG OF 29-MAY-2017 12:49, MO INTERVAL HAS DECREASED NONSPECIFIC T WAVE ABNORMALITY NOW EVIDENT IN ANTEROLATERAL LEADS Confirmed by LEIF BARFIELD MD ([id number]) on 06/18/2017 1:07:45 PM Referred By: Confirmed By:LEIF BARFIELD MD
[2017-06-18] MEDS: morphine CARPU-JECT 4 MG/1 ML DISP.SYRIN IVPUSH PRN (17:38)
[2017-06-18] MEDS ORDERED: morphine CARPU-JECT 4 MG/1 ML DISP.SYRIN ONE (17:38)
[2017-06-18] MEDS ORDERED: MAG HYDROX/AL HYDROX/SIMETH 30 ML UNIT-DOSE CUP PO ONE (18:37)
--- NOTE | 2017-06-18 18:45 | PN ---
Teaching Attending Note Name of Resident: Richard Mccartney ATTENDING PHYSICIAN STATEMENT I saw and evaluated the patient. I reviewed the resident's note and discussed the case with the resident. I agree with the resident's findings and plan as documented. SUBJECTIVE: Patient is feeling better with no acute distress. deniea having any fever or chills, no shortness of breath OBJECTIVE: Vital Signs Temperature 99.8 F H 06/18/17 18:33 Pulse Rate 108 H 06/18/17 18:33 Respiratory Rate 18 06/18/17 18:33 Blood Pressure 109/72 06/18/17 18:33 O2 Sat by Pulse Oximetry (%) 99 06/18/17 18:33 CBCD WBC 9.2 K/mm3 (4.0-10.0) D 06/18/17 04:32 RBC 4.50 M/mm3 (3.60-5.2) 06/18/17 04:32 Hgb 12.4 GM/dL (10.7-15.3) 06/18/17 04:32 Hct 37.1 % (32.4-45.2) 06/18/17 04:32 MCV 82.5 fl (80-96) 06/18/17 04:32 MCHC 33.4 g/dl (32.0-36.0) 06/18/17 04:32 RDW 13.4 % (11.6-15.6) 06/18/17 04:32 Plt Count 112 K/MM3 (134-434) L 06/18/17 04:32 MPV 9.3 fl (7.5-11.1) 06/18/17 04:32 CMP Sodium 137 mmol/L (136-145) 06/18/17 04:32 Potassium 3.7 mmol/L (3.5-5.1) 06/18/17 04:32 Chloride 103 mmol/L (98-107) 06/18/17 04:32 Carbon Dioxide 26 mmol/L (21-32) 06/18/17 04:32 Anion Gap 8 (8-16) 06/18/17 04:32 BUN 10 mg/dL (7-18) 06/18/17 04:32 Creatinine 0.8 mg/dL (0.55-1.02) D 06/18/17 04:32 Creat Clearance w eGFR > 60 (>60) 06/18/17 04:32 Random Glucose 270 mg/dL (74-106) H 06/18/17 04:32 Calcium 8.4 mg/dL (8.5-10.1) L 06/18/17 04:32 Total Bilirubin 1.0 mg/dL (0.2-1.0) D 06/18/17 04:32 AST 13 U/L (15-37) L D 06/18/17 04:32 ALT 27 U/L (12-78) 06/18/17 04:32 Alkaline Phosphatase 98 U/L (45-117) 06/18/17 04:32 Total Protein 7.1 g/dl (6.4-8.2) 06/18/17 04:32 Albumin 3.3 g/dl (3.4-5.0) L 06/18/17 04:32 CARDIAC ENZYMES Creatine Kinase 124 IU/L (26-192) 06/18/17 04:56 Troponin I < 0.02 ng/ml (0.00-0.05) 06/18/17 04:56 Current Medications Generic Name Dose Route Start Last Admin Trade Name Freq PRN Reason Stop Dose Admin Al Hydroxide/Mg Hydroxide 30 ml 06/18/17 18:37 Mylanta Oral Suspension - PO 06/18/17 18:38 ONCE ONE Atorvastatin Calcium 40 mg 06/18/17 22:00 Lipitor - PO HS MARIA T Clopidogrel Bisulfate 75 mg 06/18/17 10:00 06/18/17 11:08 Plavix - PO 75 mg DAILY MARIA T Administration Enoxaparin Sodium 40 mg 06/18/17 10:00 06/18/17 11:08 Lovenox - SQ 40 mg DAILY MARIA T Administration Sodium Chloride 1,000 mls @ 100 mls/hr 06/18/17 07:15 06/18/17 07:36 Normal Saline - IV 100 mls/hr ASDIR MARIA T Administration Levofloxacin 150 mls @ 100 mls/hr 06/19/17 06:00 Levaquin 750 Mg Premixed Ivpb - IVPB 06/19/17 07:29 ONCE ONE Insulin Aspart 1 vial 06/18/17 11:00 06/18/17 18:32 Novolog Vial Sliding Scale - SQ Not Given ACHS [facility] Protocol Lisinopril 5 mg 06/18/17 10:00 06/18/17 11:09 Prinivil PO 5 mg DAILY MARIA T Administration Morphine Sulfate 4 mg 06/18/17 17:33 06/18/17 17:38 Morphine Injection - IVPUSH 4 mg Q4H PRN Administration PAIN Sodium Chloride 250 ml 06/18/17 04:36 Normal Saline - IV Q20M PRN MAP<65mm Hg OR SBP <90 Home Medications Medication Instructions Recorded Atorvastatin Ca [Lipitor] 40 mg PO HS #25 tablet 05/30/17 Clopidogrel Bisulfate [Plavix -] 75 mg PO DAILY #25 tablet 05/30/17 Glipizide 10 mg PO BID #60 tablet 05/30/17 Lisinopril [Prinivil] 5 mg PO DAILY #15 tablet 05/30/17 Metformin HCl [Glucophage] 1,000 mg PO DAILY #25 tablet 05/30/17 PE: per resident's note no CVA tenderness on exam ASSESSMENT AND PLAN: 37 yr old woman with HTN, DMII, HLD, presents with fever, chills, vomiting and right flank since 2:15am this morning while in ED.was found to have lactic acidosis. #Severe sepsis(Tachycardia, fever, lactic acidosis, source- UTI/pyelo) on IVF, s /p Levaquin in ED and will continue daily. #DMII - uncontrolled hold metformin and glipizide, due to having lactic acidosis , sliding scale with coverage. #HTN - controlled on lisinopril 5mg po daily #HLD on Atorvastatin 40mg QHS # Morbid Obesity counseled pt on diet and exercise, pt has a plan and will continue progress after discharge DVT px: lovenox 40 sq daily, early ambulation #Diet diabetic/low sodium
[2017-06-18] MEDS: ATORVASTATIN CA 40 MG TABLET (FP) PO SCH (21:35)
[2017-06-19] MEDS: INSULIN SLIDING SCALE (NOVOLOG) 1 VIAL SQ SCH ×4 (00:18→16:49)
[2017-06-19] MEDS: morphine CARPU-JECT 4 MG/1 ML DISP.SYRIN IVPUSH PRN (01:22)
[2017-06-19] MEDS: ACETAMINOPHEN 325 MG TABLET (FP) PO PRN (04:00)
[2017-06-19] MEDS ORDERED: LEVOFLOXACIN 750 MG IVPB 150 ML IVPB ONE (06:00)
--- NOTE | 2017-06-19 08:07 | PN ---
Physical Exam: SUBJECTIVE: Patient seen and examined this AM. Still has CVA tenderness. No fevers, no chills, no CP, no SOB. No complaints OBJECTIVE: Vital Signs Period Temp Pulse Resp BP Sys/Guzmán Pulse Ox Last 24 Hr 97.9 F-99.8 F 97-111 18-20 106-134/58-84 97-99 GEN: Pt is awake, alert, mild distress due to pain HNT: PERRLA, EOMi, no LAD CV: S1, S2, Tachycardic, regular rhythm, no murmurs LUNG: CTABL, no wheezes, crackles, rales ABD: Obese, soft, nontender, nondistended, no suprapubic tenderness MSK: +CVA tenderness R side, not in L side, 5/5 in UE and LE, no edema, no erythema NEURO: Cranial nerves 2-12 intact, sensation equal and intact to face and body bilatearlly, reflexes 2+ in all extremities, AAOx3 Laboratory Results - last 24 hr 06/18/17 06/18/17 06/18/17 08:45 12:19 21:45 POC Glucometer [id number] [phone] 06/19/17 06:20 POC Glucometer 233 Active Medications Generic Name Dose Route Start Last Admin Trade Name Freq PRN Reason Stop Dose Admin Acetaminophen 650 mg 06/19/17 04:24 06/19/17 04:00 Tylenol - PO 650 mg Q6H PRN Administration FEVER OR PAIN Atorvastatin Calcium 40 mg 06/18/17 22:00 06/18/17 21:35 Lipitor - PO 40 mg HS MARIA T Administration Clopidogrel Bisulfate 75 mg 06/18/17 10:00 06/18/17 11:08 Plavix - PO 75 mg DAILY MARIA T Administration Enoxaparin Sodium 40 mg 06/18/17 10:00 06/18/17 11:08 Lovenox - SQ 40 mg DAILY MARIA T Administration Sodium Chloride 1,000 mls @ 100 mls/hr 06/18/17 07:15 06/18/17 07:36 Normal Saline - IV 100 mls/hr ASDIR MARIA T Administration Insulin Aspart 1 vial 06/18/17 11:00 06/19/17 06:23 Novolog Vial Sliding Scale - SQ 4 units ACHS MARIA T Administration Protocol Lisinopril 5 mg 06/18/17 10:00 06/18/17 11:09 Prinivil PO 5 mg DAILY MARIA T Administration Morphine Sulfate 4 mg 06/18/17 17:33 06/19/17 01:22 Morphine Injection - IVPUSH 4 mg Q4H PRN Administration PAIN Sodium Chloride 250 ml 06/18/17 04:36 Normal Saline - IV Q20M PRN MAP<65mm Hg OR SBP <90 ASSESSMENT/PLAN: 37 yr old F with uncontrolled DM, HTN, presents with fevers, chills, vomiting, and right flank pain worse with urination, found to be in severe sepsis (tachy, fever, lactic acidosis, with likely source from UTI/Pyelo). She received Levofloxacin 750mg IVPB in ED #Severe sepsis (tachy, fever, lactic acidosis, source- UTI/pyelo) - Likely pyelonephritis - DM2 likely contributing bc pt has glucosuria - Past hx of UTI with pansensitive E.coli - Continue levofloxacin 750mg IVPB QD - Renal U/S neg - Morphine 4mg IVPush Q4 PRN for pain #Tachycardia - Recent echo/stress test normal - HR is normally elevated, might be due to fever - Continue to monitor on tele # Thrombocytopenia - D/c lovenox, add SCDs - No occult bleeding - Spoke to patient's PCP Dr. Nicholas [phone] who is willing to followup as outpatient #DMII uncontrolled - Hold metformin + glipizide due to lactic acidosis - Place on SSI with BGMs - Will consult Endocrine prior to discharge #HTN - controlled - Continue lisinopril 5mg po daily #Possible TIA on previous admission - The patient had neg CVA workup, but given risk factors, pt was discharged on Plavix - Continue Plavix 75mg #HLD - Continue atorvastatin 40mg QHS # FEN - Fluids: adequate PO, d/c'd fluids - Electrolytes: No abnormalities - Nutrition: Continue diabetic/sodium diet # Prophylaxis - DVT: SCDs - GI: Not indicated - Deconditoning: PT ordered to encourage movement # Pt home meds - Pt was recently discharged from hospital, all home meds are known Visit type - Emergency Visit Emergency Visit: No - New Patient This patient is new to me today: No - Critical Care Critical Care patient: No
[2017-06-19 08:23] LABS: BASOPHIL 0.3 % (0-2.0); EOSINOPHIL 3.4 % (0-4.5); MCHC 33.5 g/dl (32.0-36.0); MEAN CELL VOLUME 83.8 fl (80-96); MEAN PLT VOLUME 9.3 fl (7.5-11.1); NEUTROPHILS 64.1 % (42.8-82.8); PLATELET COUNT 86 K/MM3 (134-434); RDW 13.5 % (11.6-15.6); WHITE BLOOD COUNT 4.4 K/mm3 (4.0-10.0)
[2017-06-19 09:00] LABS: ANION GAP 5 (8-16); CALCIUM 8.2 mg/dL (8.5-10.1); CO2 28 mmol/L (21-32); CREATININE 0.6 mg/dL (0.55-1.02); GLUCOSE,RANDOM 238 mg/dL (74-106)
--- NOTE | 2017-06-19 09:25 | PN ---
Teaching Attending Note Name of Resident: Richard Mccartney ATTENDING PHYSICIAN STATEMENT I saw and evaluated the patient. I reviewed the resident's note and discussed the case with the resident. I agree with the resident's findings and plan as documented. SUBJECTIVE: Patient is feeling better today. No fever or chills, no shortness of breath. No nausea or vomiting. No headache. OBJECTIVE: Vital Signs Temperature 99.1 F 06/19/17 04:17 Pulse Rate 97 H 06/19/17 04:17 Respiratory Rate 20 06/19/17 04:17 Blood Pressure 113/75 06/19/17 04:17 O2 Sat by Pulse Oximetry (%) 99 06/18/17 21:01 CBCD WBC 4.4 K/mm3 (4.0-10.0) D 06/19/17 08:00 RBC 3.93 M/mm3 (3.60-5.2) 06/19/17 08:00 Hgb 11.0 GM/dL (10.7-15.3) D 06/19/17 08:00 Hct 32.9 % (32.4-45.2) 06/19/17 08:00 MCV 83.8 fl (80-96) 06/19/17 08:00 MCHC 33.5 g/dl (32.0-36.0) 06/19/17 08:00 RDW 13.5 % (11.6-15.6) 06/19/17 08:00 Plt Count 86 K/MM3 (134-434) L D 06/19/17 08:00 MPV 9.3 fl (7.5-11.1) 06/19/17 08:00 CMP Sodium 139 mmol/L (136-145) 06/19/17 08:00 Potassium 3.7 mmol/L (3.5-5.1) 06/19/17 08:00 Chloride 106 mmol/L (98-107) 06/19/17 08:00 Carbon Dioxide 28 mmol/L (21-32) 06/19/17 08:00 Anion Gap 5 (8-16) L 06/19/17 08:00 BUN 5 mg/dL (7-18) L D 06/19/17 08:00 Creatinine 0.6 mg/dL (0.55-1.02) D 06/19/17 08:00 Creat Clearance w eGFR > 60 (>60) 06/18/17 04:32 Random Glucose 238 mg/dL (74-106) H 06/19/17 08:00 Calcium 8.2 mg/dL (8.5-10.1) L 06/19/17 08:00 Total Bilirubin 1.0 mg/dL (0.2-1.0) D 06/18/17 04:32 AST 13 U/L (15-37) L D 06/18/17 04:32 ALT 27 U/L (12-78) 06/18/17 04:32 Alkaline Phosphatase 98 U/L (45-117) 06/18/17 04:32 Total Protein 7.1 g/dl (6.4-8.2) 06/18/17 04:32 Albumin 3.3 g/dl (3.4-5.0) L 06/18/17 04:32 CARDIAC ENZYMES Creatine Kinase 124 IU/L (26-192) 06/18/17 04:56 Troponin I < 0.02 ng/ml (0.00-0.05) 06/18/17 04:56 Current Medications Generic Name Dose Route Start Last Admin Trade Name Freq PRN Reason Stop Dose Admin Acetaminophen 650 mg 06/19/17 04:24 06/19/17 04:00 Tylenol - PO 650 mg Q6H PRN Administration FEVER OR PAIN Atorvastatin Calcium 40 mg 06/18/17 22:00 06/18/17 21:35 Lipitor - PO 40 mg HS MARIA T Administration Clopidogrel Bisulfate 75 mg 06/18/17 10:00 06/18/17 11:08 Plavix - PO 75 mg DAILY MARIA T Administration Enoxaparin Sodium 40 mg 06/18/17 10:00 06/18/17 11:08 Lovenox - SQ 40 mg DAILY MARIA T Administration Sodium Chloride 1,000 mls @ 100 mls/hr 06/18/17 07:15 06/18/17 07:36 Normal Saline - IV 100 mls/hr ASDIR MARIA T Administration Levofloxacin 150 mls @ 100 mls/hr 06/20/17 06:00 Levaquin 750 Mg Premixed Ivpb - IVPB 06/20/17 07:29 ONCE ONE Insulin Aspart 1 vial 06/18/17 11:00 06/19/17 06:23 Novolog Vial Sliding Scale - SQ 4 units ACHS MARIA T Administration Protocol Lisinopril 5 mg 06/18/17 10:00 06/18/17 11:09 Prinivil PO 5 mg DAILY MARIA T Administration Morphine Sulfate 4 mg 06/18/17 17:33 06/19/17 01:22 Morphine Injection - IVPUSH 4 mg Q4H PRN Administration PAIN Sodium Chloride 250 ml 06/18/17 04:36 Normal Saline - IV Q20M PRN MAP<65mm Hg OR SBP <90 Home Medications Medication Instructions Recorded Atorvastatin Ca [Lipitor] 40 mg PO HS #25 tablet 05/30/17 Clopidogrel Bisulfate [Plavix -] 75 mg PO DAILY #25 tablet 05/30/17 Glipizide 10 mg PO BID #60 tablet 05/30/17 Lisinopril [Prinivil] 5 mg PO DAILY #15 tablet 05/30/17 Metformin HCl [Glucophage] 1,000 mg PO DAILY #25 tablet 05/30/17 PE: Morbid obesity Chest: CTA Heart: S1S2 positive Musculoskeletal : No CVA tenderness Renal US: negative CXR: negative ASSESSMENT AND PLAN: 37 yr old woman with HTN, DMII, HLD, presents with fever, chills, vomiting and right flank while in ED.was found to have lactic acidosis. #Severe sepsis(Tachycardia, fever, lactic acidosis, source- UTI/pyelo) on IVF, s /p Levaquin in ED and will continue daily. #T2DM - uncontrolled hold metformin and glipizide, due to having lactic acidosis (Non_AG) , sliding scale with coverage. Will get to see the patient. #HTN - controlled on lisinopril 5mg po daily #HLD on Atorvastatin 40mg QHS # Morbid Obesity counseled pt on diet and exercise, pt has a plan and will continue progress after discharge DVT px: lovenox 40 sq daily, early ambulation #Diet diabetic/low sodium
[2017-06-19] MEDS: SODIUM CHLORIDE 1,000 ML IV SCH ×2 (10:30→18:54)
[2017-06-19] MEDS: ENOXAPARIN NA (PORCINE) 40 MG/0.4 ML DISP.SYRIN SQ SCH (10:30)
[2017-06-19] MEDS: CLOPIDOGREL BISULFATE 75 MG TABLET (FP) PO SCH (10:31)
[2017-06-19] MEDS: LISINOPRIL 5 MG TABLET (FP) PO SCH (10:31)
[2017-06-19] MEDS ORDERED: INSULIN (NOVOLOG) ASPART 100 UNITS/ML 10ML VIAL ONE ×2 (14:00→20:46)
--- NOTE | 2017-06-19 17:03 | CONSULT ---
Consult Consult Specialty:: Endocrinology Referred by:: Dr Harris Reason for Consultation:: Hyperglycemia - History of Present Illness Chief Complaint: fever, chils History of Present Illness: This is a 37 yr old woman with h/o HTN, DMII for 5 years, HLD, who presented to ED with fever, chills, vomiting and right flank pain. She was woken up from sleep from acute aching continous nonradiating right flank pain worse with urination with no alleviating factors. Also had nonbloody, watery bilious emesis 8x at home. Pt found to have pyelonephritis and lactic acidosis. PT wa treated with IV abx with improvement of symptoms. Because of lactic acidosis Metformin and Glipizide were held. BGM at home has been around 200s. Last A1c was 9.9 last month. Pt referred for management of uncontrolled blood sugar. Pt says she as been more compliant with diet and meds since last admission and it is showing in the BGM she does at home. - History Source History Provided By: Patient, Medical Record - Past Medical History Cardio/Vascular: Yes: HTN, Hyperlipdemia Endocrine: Yes: Diabetes Mellitus - Alcohol/Substance Use Hx Alcohol Use: No - Smoking History Smoking history: Never smoked Have you smoked in the past 12 months: No Home Medications - Allergies Allergies/Adverse Reactions: Allergies Allergy/AdvReac Type Severity Reaction Status Date / Time aspirin Allergy Mild shaking Verified 06/18/17 05:11 grapes Allergy Uncoded 06/18/17 05:11 mushrooms Allergy Uncoded 06/18/17 05:11 - Home Medications Home Medications: Ambulatory Orders Atorvastatin Ca [Lipitor] 40 mg PO HS #25 tablet 05/30/17 Clopidogrel Bisulfate [Plavix -] 75 mg PO DAILY #25 tablet 05/30/17 Glipizide 10 mg PO BID #60 tablet 05/30/17 Lisinopril [Prinivil] 5 mg PO DAILY #15 tablet 05/30/17 Metformin HCl [Glucophage] 1,000 mg PO DAILY #25 tablet 05/30/17 Family Disease History - Family Disease History Family Disease History: Diabetes: Grandparent Review of Systems - Review of Systems Constitutional: reports: Malaise Eyes: reports: Blurred Vision HENT: reports: No Symptoms Neck: reports: No Symptoms Cardiovascular: reports: No Symptoms Respiratory: reports: No Symptoms Gastrointestinal: reports: No Symptoms Genitourinary: reports: Other (Nocturiax2) Integumentary: reports: No Symptoms Neurological: reports: No Symptoms Endocrine: reports: No Symptoms Physical Exam Vital Signs: Vital Signs Temperature 99.1 F 06/19/17 13:41 Pulse Rate 97 H 06/19/17 13:41 Respiratory Rate 20 06/19/17 13:41 Blood Pressure 119/77 06/19/17 13:41 O2 Sat by Pulse Oximetry (%) 96 06/19/17 14:00 Constitutional: Yes: No Distress, Calm Eyes: Yes: Conjunctiva Clear, EOM Intact HENT: Yes: Atraumatic, Normocephalic Neck: Yes: Supple, Trachea Midline Cardiovascular: Yes: Regular Rate and Rhythm Respiratory: Yes: Regular, CTA Bilaterally Gastrointestinal: Yes: Normal Bowel Sounds, Soft Musculoskeletal: Yes: WNL Extremities: Yes: WNL Edema: No Neurological: Yes: Alert, Oriented Labs: CBC, BMP 06/19/17 08:00 06/19/17 08:00 Problem List - Problems (1) Pyelonephritis Code(s): N12 - TUBULO-INTERSTITIAL NEPHRITIS, NOT SPCF ACUTE OR CHRONIC (2) HLD (hyperlipidemia) Code(s): E78.5 - HYPERLIPIDEMIA, UNSPECIFIED (3) Hypertension Code(s): I10 - ESSENTIAL (PRIMARY) HYPERTENSION (4) Non-insulin dependent type 2 diabetes mellitus Code(s): E11.9 - TYPE 2 DIABETES MELLITUS WITHOUT COMPLICATIONS Assessment/Plan AP: Sepsis T2DM HTN HLD Obesity lactic Acidosis: Resolved IV Abx Iv hydration as necessary Nutrition consult Start Levemir 10 units Daily at Novolog coverage Will F/U
[2017-06-19] MEDS: ATORVASTATIN CA 40 MG TABLET (FP) PO SCH (21:28)
[2017-06-19] MEDS ORDERED: INSULIN SLIDING SCALE (NOVOLOG) 1 VIAL SQ SCH (22:00)
[2017-06-19] MEDS ORDERED: INSULIN DETEMIR 100 UNITS/ML MDV SQ SCH (22:00)
[2017-06-20] MEDS: ACETAMINOPHEN 325 MG TABLET (FP) PO PRN (05:17)
[2017-06-20] MEDS: SODIUM CHLORIDE 1,000 ML IV SCH (05:18)
[2017-06-20] MEDS ORDERED: LEVOFLOXACIN 750 MG IVPB 150 ML IVPB ONE (06:00)
[2017-06-20] MEDS: INSULIN SLIDING SCALE (NOVOLOG) 1 VIAL SQ SCH ×2 (06:25→12:08)
[2017-06-20 08:54] LABS: ANION GAP 5 (8-16); CALCIUM 8.3 mg/dL (8.5-10.1); CO2 28 mmol/L (21-32); CREATININE 0.5 mg/dL (0.55-1.02); GLUCOSE,RANDOM 188 mg/dL (74-106)
[2017-06-20] MEDS: CLOPIDOGREL BISULFATE 75 MG TABLET (FP) PO SCH (09:53)
[2017-06-20] MEDS: LISINOPRIL 5 MG TABLET (FP) PO SCH (09:53)
[2017-06-20 10:25] VITALS: BP 122/85; PULSE 92; TEMP 98.2
[2017-06-20] MEDS ORDERED: LACTOBACILLUS ACIDOPHILUS 1 EACH TAB (FP) PO SCH (11:30)
[2017-06-20] MEDS ORDERED: INSULIN (NOVOLOG) ASPART 100 UNITS/ML 10ML VIAL ONE ×2 (12:10→12:15)
--- NOTE | 2017-06-20 13:11 | PN ---
Progress Note (short form) - Note Progress Note: Feels good Denies any complaints No urinary symptoms Vital Signs Period Temp Pulse Resp BP Sys/Guzmán Pulse Ox Last 24 Hr 98.0 F-99.1 F 91-103 20-20 91-130/57-85 96-99 PE; AOx3 Neck: Supple, No JVD HEENT: PERRL, EOMI Lungs: CTA CVS: S1S2 Abd: Benign EXt: No edema NeuroL: No focal deficit CMP Sodium 140 mmol/L (136-145) 06/20/17 05:35 Potassium 3.7 mmol/L (3.5-5.1) 06/20/17 05:35 Chloride 107 mmol/L (98-107) 06/20/17 05:35 Carbon Dioxide 28 mmol/L (21-32) 06/20/17 05:35 Anion Gap 5 (8-16) L 06/20/17 05:35 BUN 5 mg/dL (7-18) L 06/20/17 05:35 Creatinine 0.5 mg/dL (0.55-1.02) L 06/20/17 05:35 Creat Clearance w eGFR > 60 (>60) 06/18/17 04:32 POC Glucometer 177 UNITS (()) 06/20/17 11:11 Random Glucose 188 mg/dL (74-106) H D 06/20/17 05:35 Lactic Acid 1.4 mmol/L (0.4-2.0) 06/18/17 06:41 Calcium 8.3 mg/dL (8.5-10.1) L 06/20/17 05:35 Total Bilirubin 1.0 mg/dL (0.2-1.0) D 06/18/17 04:32 AST 13 U/L (15-37) L D 06/18/17 04:32 ALT 27 U/L (12-78) 06/18/17 04:32 Alkaline Phosphatase 98 U/L (45-117) 06/18/17 04:32 Creatine Kinase 124 IU/L (26-192) 06/18/17 04:56 Troponin I < 0.02 ng/ml (0.00-0.05) 06/18/17 04:56 Total Protein 7.1 g/dl (6.4-8.2) 06/18/17 04:32 Albumin 3.3 g/dl (3.4-5.0) L 06/18/17 04:32 Lipase 114 U/L (73-393) 06/18/17 04:32 Serum , Qual Negative 06/18/17 04:32 Current Medications Generic Name Dose Route Start Last Admin Trade Name Freq PRN Reason Stop Dose Admin Acetaminophen 650 mg 06/19/17 04:24 06/20/17 05:17 Tylenol - PO 650 mg Q6H PRN Administration FEVER OR PAIN Atorvastatin Calcium 40 mg 06/18/17 22:00 06/19/17 21:28 Lipitor - PO 40 mg HS MARIA T Administration Clopidogrel Bisulfate 75 mg 06/18/17 10:00 06/20/17 09:53 Plavix - PO 75 mg DAILY MARIA T Administration Sodium Chloride 1,000 mls @ 100 mls/hr 06/18/17 07:15 06/20/17 05:18 Normal Saline - IV 100 mls/hr ASDIR MARIA T Administration Insulin Aspart 1 vial 06/20/17 07:00 06/20/17 12:08 Novolog Vial Sliding Scale - SQ 4 unit TIDAC MARIA T Administration Protocol Insulin Aspart 1 vial 06/19/17 22:00 06/19/17 21:35 Novolog Vial Sliding Scale - SQ 2 units HS MARIA T Administration Protocol Insulin Detemir 10 units 06/19/17 22:00 06/19/17 21:34 Levemir Vial SQ 10 units HS MARIA T Administration Lactobacillus Acidophilus 1 tab 06/20/17 11:30 06/20/17 12:12 Bacid - PO 1 tab DAILY MARIA T Administration Lisinopril 5 mg 06/18/17 10:00 06/20/17 09:53 Prinivil PO 5 mg DAILY MARIA T Administration Morphine Sulfate 4 mg 06/18/17 17:33 06/19/17 01:22 Morphine Injection - IVPUSH 4 mg Q4H PRN Administration PAIN Sodium Chloride 250 ml 06/18/17 04:36 Normal Saline - IV Q20M PRN MAP<65mm Hg OR SBP <90 AP: T2DM: Uncontrolled Pt may be discharged home on Metformin 1000 mg Daily, Glipizide 5 mg BID 15 mins premeals and Levemir 15 units daily at HS F/U in office next week with FS record Hold Levemir if FS in morning drops to <80 Sepsis: Resolved HTN HLD Obesity lactic Acidosis: Resolved Problem List - Problems (1) Pyelonephritis Code(s): N12 - TUBULO-INTERSTITIAL NEPHRITIS, NOT SPCF ACUTE OR CHRONIC (2) HLD (hyperlipidemia) Code(s): E78.5 - HYPERLIPIDEMIA, UNSPECIFIED (3) Hypertension Code(s): I10 - ESSENTIAL (PRIMARY) HYPERTENSION (4) Non-insulin dependent type 2 diabetes mellitus Code(s): E11.9 - TYPE 2 DIABETES MELLITUS WITHOUT COMPLICATIONS
--- NOTE | 2017-06-20 17:05 | DS ---
Physical Exam: SUBJECTIVE: Patient seen and examined this AM. No Cp, no SOB, no fevers, no chills, HR improved. Minimal CVA tenderness. Pt feels back to baseline OBJECTIVE: Vital Signs Period Temp Pulse Resp BP Sys/Guzmán Pulse Ox Last 24 Hr 98.0 F-99.0 F 91-103 20-20 91-130/57-85 96-99 PHYSICAL EXAM GEN: Pt is awake, alert, mild distress due to pain HNT: PERRLA, EOMi, no LAD CV: S1, S2, Tachycardic, regular rhythm, no murmurs LUNG: CTABL, no wheezes, crackles, rales ABD: Obese, soft, nontender, nondistended, no suprapubic tenderness MSK: +mild CVA tenderness R side, not in L side, 5/5 in UE and LE, no edema, no erythema NEURO: Cranial nerves 2-12 intact, sensation equal and intact to face and body bilatearlly, reflexes 2+ in all extremities, AAOx3 LABS Laboratory Results - last 24 hr 06/19/17 06/20/17 06/20/17 21:27 05:35 06:21 Sodium 140 Potassium 3.7 Chloride 107 Carbon Dioxide 28 Anion Gap 5 L BUN 5 L Creatinine 0.5 L POC Glucometer 211 214 Random Glucose 188 H D Calcium 8.3 L 06/20/17 06/20/17 11:11 15:35 Sodium Potassium Chloride Carbon Dioxide Anion Gap BUN Creatinine POC Glucometer 177 245 Random Glucose Calcium HOSPITAL COURSE: Date of Admission:06/18/17 Date of Discharge: 06/20/17 37 yr old F with uncontrolled DM, HTN, presents with fevers, chills, vomiting, and right flank pain worse with urination, found to be in severe sepsis (tachy, fever, lactic acidosis, with likely source from UTI/Pyelo). She received Levofloxacin 750mg IVPB in ED #Severe sepsis (tachy, fever, lactic acidosis, source- UTI/pyelo) - A urine culture was ordered, and renal ultrasound was negative. She was started on levofloxacin 750mg IVPB QD and clinically improved. She was sent home with Levofloxacin 500mg for a total of 7 days of treatment. # Thrombocytopenia - The patient's latest platelets was 87, without occult bleeding. We discontinued her lovenox DVT prophylaxis, switching her to SCDs and encouraging ambulation. Upon chart review, she has a history of thrombocytopenia. We called her Primary Care Doctor who is aware and agrees to workup the thrombocytopenia as an outpatient. #DMII uncontrolled - We held the patient's home metformin and glipizide due to her initial lactic acidosis. The patient's AM glucoses were still uncontrolled. She will be discharged on her home medications + Levemir 15u QHS. The patient understands how to use insulin, and has a home glucose monitor with test strips at home. She will be following with the fruit or nut farm worker she saw in the hospital (Dr. Cates) within 1 week. # Other - HTN - Continued lisinopril 5mg po daily - Possible TIA on previous admission - continued Plavix 75mg QD - HLD - Continued Atorvastatin 40mg QHS The patient is aware of the hospital course and agrees with the plan. Minutes to complete discharge: 55 Discharge Summary Reason For Visit: SIRS,PYELONEPHRITIS,TACHYCARDIA Current Active Problems Pyelonephritis (Acute) Hyperglycemia due to type 2 diabetes mellitus (Chronic) Condition: Improved - Instructions Diet, Activity, Other Instructions: - Please continue to take your antibiotics: Levofloxacin 500mg daily for 4 more days - Please take Bacid two times a day - Please resume your Metformin - We changed your Glipizide Glipizide 10mg two times a day --> changed to Glipizide 5mg two times a day, please take that before meals - We will start you on insulin at night Levemir 15 units once every night Please check your finger-stick glucose three times a day Hold Levemir if finger stick glucose in morning drops to <80 - Please followup with your fruit or nut farm worker Dr. Cates within 1 week Check your glucose levels frequently with your home glucose monitor and test strips Keep a log and have it with you when you go to your Planned Giving Officer appointment - Please followup with your primary care doctor Dr. Kaufman within 1 week We informed her about your platelets, and she will do some tests as an outpatient - Please continue to follow a consistent diet and exercise regimen - If you have any serious symptoms, please return to the ER Referrals: Megan Kaufman [Nurse Practitioner] - 1 Week Chico Jauregui MD [Staff Physician] - 1 Week Disposition: HOME - Home Medications Comprehensive Discharge Medication List: Ambulatory Orders Atorvastatin Ca [Lipitor] 40 mg PO HS #25 tablet 05/30/17 Clopidogrel Bisulfate [Plavix -] 75 mg PO DAILY #25 tablet 05/30/17 Lisinopril [Prinivil] 5 mg PO DAILY #15 tablet 05/30/17 Metformin HCl [Glucophage] 1,000 mg PO DAILY #25 tablet 05/30/17 Glipizide 5 mg PO BID #60 tablet 06/20/17 Insulin (Levemir) [Levemir Vial] 15 units SQ HS #1 ml 06/20/17 Lactobacillus Acidophilus [Bacid -] 1 tab PO BID #60 tab 06/20/17 Levofloxacin [Levaquin -] 500 mg PO DAILY #4 tablet 06/20/17 This patient is new to me today: No Emergency Visit: No Critical Care patient: No - Discharge Referral Referred to [facility] No
--- NOTE | 2017-06-20 18:40 | PN ---
Teaching Attending Note Name of Resident: Richard Mccartney ATTENDING PHYSICIAN STATEMENT I saw and evaluated the patient. I reviewed the resident's note and discussed the case with the resident. I agree with the resident's findings and plan as documented. SUBJECTIVE: Patient is feeling better with no acute distress. No nausea or vomiting. Has no further pain. OBJECTIVE: Vital Signs Temperature 98.2 F 06/20/17 09:00 Pulse Rate 92 H 06/20/17 09:00 Respiratory Rate 20 06/20/17 10:00 Blood Pressure 122/85 06/20/17 09:00 O2 Sat by Pulse Oximetry (%) 99 06/20/17 10:00 CBCD WBC 4.4 K/mm3 (4.0-10.0) D 06/19/17 08:00 RBC 3.93 M/mm3 (3.60-5.2) 06/19/17 08:00 Hgb 11.0 GM/dL (10.7-15.3) D 06/19/17 08:00 Hct 32.9 % (32.4-45.2) 06/19/17 08:00 MCV 83.8 fl (80-96) 06/19/17 08:00 MCHC 33.5 g/dl (32.0-36.0) 06/19/17 08:00 RDW 13.5 % (11.6-15.6) 06/19/17 08:00 Plt Count 86 K/MM3 (134-434) L D 06/19/17 08:00 MPV 9.3 fl (7.5-11.1) 06/19/17 08:00 CMP Sodium 140 mmol/L (136-145) 06/20/17 05:35 Potassium 3.7 mmol/L (3.5-5.1) 06/20/17 05:35 Chloride 107 mmol/L (98-107) 06/20/17 05:35 Carbon Dioxide 28 mmol/L (21-32) 06/20/17 05:35 Anion Gap 5 (8-16) L 06/20/17 05:35 BUN 5 mg/dL (7-18) L 06/20/17 05:35 Creatinine 0.5 mg/dL (0.55-1.02) L 06/20/17 05:35 Creat Clearance w eGFR > 60 (>60) 06/18/17 04:32 Random Glucose 188 mg/dL (74-106) H D 06/20/17 05:35 Calcium 8.3 mg/dL (8.5-10.1) L 06/20/17 05:35 Total Bilirubin 1.0 mg/dL (0.2-1.0) D 06/18/17 04:32 AST 13 U/L (15-37) L D 06/18/17 04:32 ALT 27 U/L (12-78) 06/18/17 04:32 Alkaline Phosphatase 98 U/L (45-117) 06/18/17 04:32 Total Protein 7.1 g/dl (6.4-8.2) 06/18/17 04:32 Albumin 3.3 g/dl (3.4-5.0) L 06/18/17 04:32 CARDIAC ENZYMES Creatine Kinase 124 IU/L (26-192) 06/18/17 04:56 Troponin I < 0.02 ng/ml (0.00-0.05) 06/18/17 04:56 Home Medications Medication Instructions Recorded Atorvastatin Ca [Lipitor] 40 mg PO HS #25 tablet 05/30/17 Clopidogrel Bisulfate [Plavix -] 75 mg PO DAILY #25 tablet 05/30/17 Lisinopril [Prinivil] 5 mg PO DAILY #15 tablet 05/30/17 Metformin HCl [Glucophage] 1,000 mg PO DAILY #25 tablet 05/30/17 Glipizide 5 mg PO BID #60 tablet 06/20/17 Insulin (Levemir) [Levemir Vial] 15 units SQ HS #1 ml 06/20/17 Lactobacillus Acidophilus [Bacid -] 1 tab PO BID #60 tab 06/20/17 Levofloxacin [Levaquin -] 500 mg PO DAILY #4 tablet 06/20/17 PE: Morbid obesity Chest: CTA Heart: S1S2 positive Musculoskeletal : No CVA tenderness Renal US: negative CXR: negative ASSESSMENT AND PLAN: 37 yr old woman with HTN, DMII, HLD, presents with fever, chills, vomiting and right flank while in ED.was found to have lactic acidosis. #s/p severe sepsis(Tachycardia, fever, lactic acidosis, source- UTI/pyelo) on IVF, s/p Levaquin in ED and will continue daily. #T2DM - uncontrolled on Levimir now ,continue metformin and glipizide as per textbook associate , due to having lactic acidosis (Non_AG) , Patient will follow with as an outpatient. #HTN - controlled on lisinopril 5mg po daily #HLD on Atorvastatin 40mg QHS # Morbid Obesity counseled pt on diet and exercise. #Diet diabetic/low sodium Discharge patient home.
== END 2017-06-20 18:19 | disposition home or self-care (01) | DRG 720 ==
LOC: JER 03:58 → JERBED 06:30 → J4W 18:35
PROVIDERS: ADMIT Internal Medicine; ATTEND Internal Medicine
DX: A41.9 Sepsis, unspecified organism (principal); R00.0 Tachycardia, unspecified; E87.2 Acidosis; E11.65 Type 2 diabetes mellitus with hyperglycemia; I10 Essential (primary) hypertension; E78.5 Hyperlipidemia, unspecified; E66.01 Morbid (severe) obesity due to excess calories; Z68.43 Body mass index [BMI] 50.0-59.9, adult; D69.6 Thrombocytopenia, unspecified; N12 Tubulo-interstitial nephritis, not specified as acute or chronic; G45.9 Transient cerebral ischemic attack, unspecified
CPT/HCPCS: 36415; 71010-TC; 76775-TC; 80048; 80053; 81003; 81015; 82803; 83605; 83690; 84484; 84703; 85025; 85610; 85730; 86850; 86900; 86901; 87040; 87086; 93005; 93010; 99284-25

== ENCOUNTER 2017-08-15 16:45 | Emergency (ER) | payer OTHER ==
[2017-08-15 16:49] VITALS: BP 107/76; PULSE 98; TEMP 98.4; BMI 60.5
--- NOTE | 2017-08-15 17:51 | PDOC ---
History of Present Illness - General Chief Complaint: Sore Throat Stated Complaint: sore throat Time Seen by Provider: 08/15/17 17:13 History Source: Patient Exam Limitations: No Limitations - History of Present Illness Initial Comments: 08/15/17 17:48 37 yr female with c/o sore throat for one week no fever. Pt also has bilateral pain to her teeth and gums . Pt last saw dentist 3 months ago. Pt has DM and HTN. no sick contacts 08/15/17 17:51 Past History - Past Medical History Allergies/Adverse Reactions: Allergies Allergy/AdvReac Type Severity Reaction Status Date / Time aspirin Allergy Mild shaking Verified 08/15/17 16:49 grapes Allergy Uncoded 08/15/17 16:49 mushrooms Allergy Uncoded 08/15/17 16:49 Home Medications: Ambulatory Orders Atorvastatin Ca [Lipitor] 40 mg PO HS #25 tablet 05/30/17 Clopidogrel Bisulfate [Plavix -] 75 mg PO DAILY #25 tablet 05/30/17 Lisinopril [Prinivil] 5 mg PO DAILY #15 tablet 05/30/17 Metformin HCl [Glucophage] 1,000 mg PO DAILY #25 tablet 05/30/17 Glipizide 5 mg PO BID #60 tablet 06/20/17 Insulin (Levemir) [Levemir Vial] 15 units SQ HS #1 ml 06/20/17 Lactobacillus Acidophilus [Bacid -] 1 tab PO BID #60 tab 06/20/17 Benzocaine/Menthol [Cepacol Sore Throat Lozenge] 1 each MM QID PRN #16 lozenge 08/15/17 Asthma: Yes Cardiac Disorders: Yes (tachy) Diabetes: Yes HTN: Yes Hypercholesterolemia: Yes Other medical history: obesity - Suicide/Smoking/Psychosocial Hx Smoking History: Never smoked Have you smoked in the past 12 months: No Information on smoking cessation initiated: No Hx Alcohol Use: No Drug/Substance Use Hx: No Substance Use Type: None Hx Substance Use Treatment: No Review of Systems - Review of Systems Able to Perform ROS?: Yes Is the patient limited Thai proficient: No Constitutional: No: Symptoms Reported HEENTM: Yes: Symptoms Reported, See HPI Respiratory: No: Symptoms reported Cardiac (ROS): No: Symptoms Reported ABD/GI: No: Symptoms Reported : No: Symptoms Reported Musculoskeletal: No: Symptoms Reported Integumentary: No: Symptoms Reported Neurological: No: Symptoms reported *Physical Exam - Vital Signs Last Vital Signs Temp Pulse Resp BP Pulse Ox 98.4 F 98 H 19 107/76 98 08/15/17 16:47 08/15/17 16:47 08/15/17 16:47 08/15/17 16:47 08/15/17 16:47 - Physical Exam General Appearance: Yes: Nourished, Appropriately Dressed HEENT: positive: EOMI, CELSA, Pharyngeal Erythema. negative: Tonsillar Exudate, Tonsillar Erythema Neck: positive: Supple Respiratory/Chest: positive: Lungs Clear, Normal Breath Sounds Cardiovascular: positive: Regular Rhythm, Regular Rate Gastrointestinal/Abdominal: positive: Normal Bowel Sounds, Soft Musculoskeletal: positive: Normal Inspection Extremity: positive: Normal Capillary Refill, Normal Inspection, Normal Range of Motion Integumentary: positive: Normal Color, Dry, Warm Neurologic: positive: Fully Oriented, Alert, Normal Mood/Affect, Normal Response , Motor Strength 5/5 ED Treatment Course - ADDITIONAL ORDERS Additional order review: 08/15/17 17:20 Group A Strep Rapid Antigen - Preliminary Throat Medical Decision Making - Medical Decision Making 08/15/17 17:55 cc: sore throat one week pt is able to swallow secretions pt is speaking clearly will swab for strep neg lymphadenopathy vitals stable pt took motrin 1hr [employer]LECT[employer] 08/15/17 17:56 *DC/Admit/Observation/Transfer Diagnosis at time of Disposition: Pharyngitis Qualifiers: Pharyngitis/tonsillitis etiology: unspecified etiology Qualified Code(s): J02.9 - Acute pharyngitis, unspecified - Discharge Dispostion Disposition: HOME Condition at time of disposition: Good - Prescriptions Prescriptions: Benzocaine/Menthol [Cepacol Sore Throat Lozenge] 1 each MM QID PRN #16 lozenge PRN Reason: sore throat - Referrals Referrals: Megan Kaufman [Primary Care Provider] - Prakash Landis MD [Staff Physician] - - Patient Instructions Additional Instructions: gargle with warm salt water 4-5 times a day and after eating soft foods, drink pleanty of fluids ice pops , ice cream follow with ENT if symptoms worsen or persist
== END 2017-08-15 18:08 | disposition home or self-care (01) ==
LOC: JERFT 16:45
DX: J02.9 Acute pharyngitis, unspecified (principal); I10 Essential (primary) hypertension; E11.9 Type 2 diabetes mellitus without complications; Z79.4 Long term (current) use of insulin; E78.00 Pure hypercholesterolemia, unspecified; E66.9 Obesity, unspecified; Z68.44 Body mass index [BMI] 60.0-69.9, adult
CPT/HCPCS: 87070; 87430; 99281-25

== ENCOUNTER 2018-09-03 10:45 | Emergency (ER) | payer OTHER ==
[2018-09-03 10:57] VITALS: BP 141/87; PULSE 98; TEMP 98.9; BMI 54.5
[2018-09-03] MEDS ORDERED: ALBUTEROL SO4 2.5/IPRATROPIUM 0.5 INH SOL 3 ML VIAL.NEB. NEB ONE ×2 (11:42→11:48)
--- NOTE | 2018-09-03 11:50 | PDOC ---
History of Present Illness - General Chief Complaint: Cold Symptoms Stated Complaint: COLD SYMPTOMS Time Seen by Provider: 09/03/18 11:24 History Source: Patient Exam Limitations: Clinical Condition - History of Present Illness Initial Comments: 09/03/18 11:46 Patient with history of diabetes on medication present with complain of three- day history of nonproductive cough, sore throat, chest tightness, intermittent shortness of breath and headache. 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 Patient denies any other symptoms Timing/Duration: other (3 days) Past History - Past Medical History Allergies/Adverse Reactions: Allergies Allergy/AdvReac Type Severity Reaction Status Date / Time metformin Allergy Severe Vomiting Verified 09/03/18 10:54 aspirin Allergy Mild shaking Verified 09/03/18 10:53 grapes Allergy Uncoded 09/03/18 10:53 mushrooms Allergy Uncoded 09/03/18 10:53 Home Medications: Ambulatory Orders Atorvastatin Ca [Lipitor] 40 mg PO HS #25 tablet 05/30/17 Clopidogrel Bisulfate [Plavix -] 75 mg PO DAILY #25 tablet 05/30/17 Lisinopril [Prinivil] 5 mg PO DAILY #15 tablet 05/30/17 Metformin HCl [Glucophage] 1,000 mg PO DAILY #25 tablet 05/30/17 Glipizide 5 mg PO BID #60 tablet 06/20/17 Insulin (Levemir) [Levemir Vial] 15 units SQ HS #1 ml 06/20/17 Lactobacillus Acidophilus [Bacid -] 1 tab PO BID #60 tab 06/20/17 Benzocaine/Menthol [Cepacol Sore Throat Lozenge] 1 each MM QID PRN #16 lozenge 08/15/17 Azithromycin [Zithromax 250mg Tablets -] 250 mg PO UTDICT #6 tab 09/03/18 Benzonatate [Tessalon Pearls -] 100 mg PO TID PRN #21 capsule 09/03/18 Ipratropium [place] 2 spray NS BID PRN #1 spray 09/03/18 Asthma: Yes Cardiac Disorders: Yes (tachy) COPD: No Diabetes: Yes HTN: Yes Hypercholesterolemia: Yes - Immunization History Immunization Up to Date: Yes - Suicide/Smoking/Psychosocial Hx Smoking History: Never smoked Have you smoked in the past 12 months: No Hx Alcohol Use: No Drug/Substance Use Hx: No Substance Use Type: None Hx Substance Use Treatment: No Review of Systems - Review of Systems Able to Perform ROS?: Yes Is the patient limited Burmese proficient: Yes Constitutional: Yes: Chills, Malaise. No: Fever, Night Sweats, Weakness HEENTM: Yes: Nose Congestion. No: Eye Pain, Blurred Vision, Tearing, Recent change in vision, Double Vision, Cataracts, Ear Pain, Ocular Prothesis, Ear Discharge, Nose Pain, Tinnitus, Nose Bleeding, Hearing Loss, Throat Pain, Throat Swelling, Mouth Pain, Dental Problems, Difficulty Swallowing, Mouth Swelling, Other Respiratory: Yes: See HPI, Cough. No: Orthopnea, Shortness of Breath, SOB with Exertion, SOB at Rest, Stridor, Wheezing, Productive cough, Hemoptysis, Other Cardiac (ROS): Yes: Chest Tightness. No: Chest Pain, Irregular Heart Rate, Lightheadedness, Palpitations ABD/GI: No: Diarrhea, Nausea, Vomiting Neurological: Yes: Headache. No: Numbness, Seizure, Tingling, Weakness, Unsteady Gait, Dizziness All Other Systems: Reviewed and Negative *Physical Exam - Vital Signs Last Vital Signs Temp Pulse Resp BP Pulse Ox 98.9 F 98 H 18 141/87 100 09/03/18 10:53 09/03/18 10:53 09/03/18 10:53 09/03/18 10:53 09/03/18 10:53 - Physical Exam Comments: 09/03/18 11:52 GENERAL: Well developed, well nourished. Awake and alert. No acute distress. HEENT: Normocephalic, atraumatic. PERRLA, EOMI. No conjunctival pallor. Sclera are non-icteric. Moist mucous membranes. Oropharynx is clear. NECK: Supple. Full ROM. CARDIOVASCULAR: Regular rate and rhythm. No murmurs, rubs, or gallops. Distal pulses are 2+ and symmetric. PULMONARY: No evidence of respiratory distress. Lungs clear to auscultation bilaterally. No wheezing, rales or rhonchi. ABDOMINAL: Soft. Non-tender. Non-distended. No rebound or guarding. No organomegaly. Normoactive bowel sounds. MUSCULOSKELETAL Normal range of motion at all joints. EXTREMITIES: No cyanosis. No clubbing. No edema. No calf tenderness. SKIN: Warm and dry. Normal capillary refill. No rashes. No jaundice. NEUROLOGICAL: Alert, awake, appropriate. Gait is normal without ataxia. PSYCHIATRIC: Cooperative. Good eye contact. Appropriate mood General Appearance: Yes: Nourished, Appropriately Dressed. No: Apparent Distress ED Treatment Course - RADIOLOGY Radiology Studies Ordered: Category Date Time Status CHEST PA & LAT [RAD] Stat Radiology 09/03/18 11:41 Ordered Medical Decision Making - Medical Decision Making 09/03/18 11:54 Patient with history of diabetes on medication present with complain of three- day history of nonproductive cough, nasal congestion, malaise, sore throat and tactile fever. Patient reported exposed to light with pneumonia. Lungs clear to auscultation on exam. Chest x-ray ordered. Rapid strep and throat culture ordered. Nebulizer treatment ordered for chest tightness. Treat based on imaging and lab results 09/03/18 12:36 Rapid strep negative. Chest x-ray shows no acute lung pathology. Patient is stable for outpatient treatment for URI and pharyngitis with PCP follow-up *DC/Admit/Observation/Transfer Diagnosis at time of Disposition: Cough Pharyngitis Qualifiers: Pharyngitis/tonsillitis etiology: unspecified etiology Qualified Code(s): J02.9 - Acute pharyngitis, unspecified URI (upper respiratory infection) Qualifiers: URI type: unspecified URI Qualified Code(s): J06.9 - Acute upper respiratory infection, unspecified - Discharge Dispostion Disposition: HOME Condition at time of disposition: Stable Decision to Admit order: No - Prescriptions Prescriptions: Azithromycin [Zithromax 250mg Tablets -] 250 mg PO UTDICT #6 tab Benzonatate [Tessalon Pearls -] 100 mg PO TID PRN #21 capsule PRN Reason: Cough Ipratropium [place] 2 spray NS BID PRN #1 spray PRN Reason: nasal congestion - Referrals - Patient Instructions Printed Discharge Instructions: DI for Acute Bronchitis Additional Instructions: Take medications as prescribed. Increase fluid intake. Follow-up with primary care - Post Discharge Activity Forms/Work/School Notes: Back to Work
== END 2018-09-03 12:44 | disposition home or self-care (01) ==
LOC: JERFT 10:45
PROC: 3E0F7GC Introduction of Other Therapeutic Substance into Respiratory Tract, Via Natural or Artificial Opening (ICD-10-PCS; principal; 2018-09-03)
DX: J02.9 Acute pharyngitis, unspecified (principal); J06.9 Acute upper respiratory infection, unspecified; J45.909 Unspecified asthma, uncomplicated; E11.9 Type 2 diabetes mellitus without complications; Z79.4 Long term (current) use of insulin; Z79.84 Long term (current) use of oral hypoglycemic drugs; I10 Essential (primary) hypertension; E78.00 Pure hypercholesterolemia, unspecified
CPT/HCPCS: 71046-TC-FY; 87070; 87077; 87430; 99281-25; J7620

== ENCOUNTER 2019-08-28 18:55 | Emergency (ER) | payer OTHER ==
[2019-08-28 19:03] VITALS: BMI 53.5
[2019-08-28] MEDS ORDERED: ACETAMINOPHEN 1000 MG/100 ML VIAL (NON FORMULARY) IVPB ONE (20:29)
[2019-08-28] MEDS ORDERED: SODIUM CHLORIDE 1,000 ML IV STA (20:29)
[2019-08-28 20:52] LABS: EPI CELLS 1.8 /HPF (0-5/HPF); HYALINE CASTS 1 /lpf (0-8); URINE APPEARANCE CLOUDY; URINE BACTERIA 2816.2 /hpf (NEGATIVE); URINE BILIRUBIN NEGATIVE (NEGATIVE); URINE COLOR YELLOW; URINE GLUCOSE (UA) TRACE (NEGATIVE); URINE KETONE NEGATIVE (NEGATIVE); URINE LEUK ESTERASE 3+ (NEGATIVE); URINE NITRITE NEGATIVE (NEGATIVE); URINE PROTEIN 2+ (NEGATIVE); URINE RBC 217 /hpf (0-4); URINE WBC 341 /hpf (0-5)
[2019-08-28] MEDS ORDERED: ACETAMINOPHEN INJECTION 100 ML IVPB ONE (21:16)
[2019-08-28 21:26] LABS: BASO % 0.3 % (0-2.0); EOS % 3.2 % (0-4.5); HEMATOCRIT 41.6 % (32.4-45.2); HEMOGLOBIN 13.8 GM/dL (10.7-15.3); LYMPH % 32.6 % (8-40); MCH 27.6 pg (25.7-33.7); MCHC 33.2 g/dl (32.0-36.0); MEAN CELL VOLUME 83.3 fl (80-96); MEAN PLT VOLUME 10.3 fl (7.5-11.1); MONO % 5.9 % (3.8-10.2); PLATELET COUNT 115 K/MM3 (134-434); RBC 4.99 M/mm3 (3.60-5.2); RDW 14.2 % (11.6-15.6); WHITE BLOOD COUNT 7.1 K/mm3 (4.0-10.0)
--- NOTE | 2019-08-28 21:32 | PDOC ---
History of Present Illness - General Chief Complaint: Pain Stated Complaint: ABD/BACK PAIN Time Seen by Provider: 08/28/19 19:36 History Source: Patient Exam Limitations: No Limitations Past History - Travel Traveled outside of the country in the last 30 days: No Close contact w/someone who was outside of country & ill: No - Past Medical History Allergies/Adverse Reactions: Allergies Allergy/AdvReac Type Severity Reaction Status Date / Time metformin Allergy Severe Vomiting Verified 08/28/19 19:04 aspirin Allergy Mild shaking Verified 08/28/19 19:04 grapes Allergy Uncoded 08/28/19 19:04 mushrooms Allergy Uncoded 08/28/19 19:04 Home Medications: Ambulatory Orders Atorvastatin Ca [Lipitor] 40 mg PO HS #25 tablet 05/30/17 Clopidogrel Bisulfate [Plavix -] 75 mg PO DAILY #25 tablet 05/30/17 Lisinopril [Prinivil] 5 mg PO DAILY #15 tablet 05/30/17 Glipizide 5 mg PO BID #60 tablet 06/20/17 Insulin (Levemir) [Levemir Vial] 15 units SQ HS #1 ml 06/20/17 Lactobacillus Acidophilus [Bacid -] 1 tab PO BID #60 tab 06/20/17 Benzocaine/Menthol [Cepacol Sore Throat Lozenge] 1 each MM QID PRN #16 lozenge 08/15/17 Azithromycin [Zithromax 250mg Tablets -] 250 mg PO UTDICT #6 tab 09/03/18 Benzonatate [Tessalon Pearls -] 100 mg PO TID PRN #21 capsule 09/03/18 Ipratropium [place] 2 spray NS BID PRN #1 spray 09/03/18 Cephalexin Monohydrate [Keflex -] 500 mg PO BID #14 capsule 08/29/19 Phenazopyridine HCl [Pyridium -] 100 mg PO TID #6 tablet 08/29/19 Asthma: Yes Cardiac Disorders: Yes (tachy) COPD: No Diabetes: Yes HTN: Yes Hypercholesterolemia: Yes - Immunization History Immunization Up to Date: Yes - Psycho Social/Smoking Cessation Hx Smoking History: Never smoked Have you smoked in the past 12 months: No Information on smoking cessation initiated: No Hx Alcohol Use: No Drug/Substance Use Hx: No Substance Use Type: None Hx Substance Use Treatment: No Review of Systems - Review of Systems Able to Perform ROS?: Yes Comments:: 08/28/19 22:17 CONSTITUTIONAL: Absent: fever, chills, diaphoresis, generalized weakness, malaise, loss of appetite HEENT: Absent: rhinorrhea, nasal congestion, throat pain, throat swelling, difficulty swallowing, mouth swelling, ear pain, eye pain, visual Changes CARDIOVASCULAR: Absent: chest pain, loss of consciousness, palpitations, irregular heart rate, peripheral edema RESPIRATORY: Absent: cough, shortness of breath, dyspnea with exertion, orthopnea, wheezing, stridor, hemoptysis GASTROINTESTINAL: Present: Lower abdominal pain. Absent: abdominal distension, nausea, vomiting , diarrhea, constipation, melena, hematochezia GENITOURINARY: Present: Dysuria, hesitancy, frequency. Absent: urgency, hematuria, flank pain, genital pain MUSCULOSKELETAL: Absent: myalgia, arthralgia, joint swelling SKIN: Absent: rash, itching, pallor HEMATOLOGIC/IMMUNOLOGIC: Absent: easy bleeding, easy bruising, lymphadenopathy, frequent infections ENDOCRINE: Absent: unexplained weight gain, unexplained weight loss, heat intolerance, cold intolerance NEUROLOGIC: Absent: headache, focal weakness or paresthesias, dizziness, unsteady gait, seizure, mental status changes, bladder or bowel incontinence PSYCHIATRIC: Absent: anxiety, depression, suicidal or homicidal ideation, hallucinations. Is the patient limited [place] proficient: No *Physical Exam - Vital Signs Last Vital Signs Temp Pulse Resp BP Pulse Ox 98.3 F 144 H 26 H 158/95 100 08/28/19 19:00 08/28/19 19:00 08/28/19 19:00 08/28/19 19:00 08/28/19 19:00 - Physical Exam Comments: 08/28/19 22:17 GENERAL: Well developed, well nourished. Awake and alert. No acute distress. HEENT: Normocephalic, atraumatic. PERRLA, EOMI. No conjunctival pallor. Sclera are non- icteric. Moist mucous membranes. Oropharynx is clear. NECK: Supple. Full ROM. No JVD. Carotid pulses 2+ and symmetric, without bruits. No thyromegaly. No lymphadenopathy. CARDIOVASCULAR: Regular rate and rhythm. No murmurs, rubs, or gallops. Distal pulses are 2+ and symmetric. PULMONARY: No evidence of respiratory distress. Lungs clear to auscultation bilaterally. No wheezing, rales or rhonchi. ABDOMINAL: Tenderness palpation of the left lower quadrant and to the suprapubic region. Soft. Non-distended. No rebound or guarding. No organomegaly. Normoactive bowel sounds. MUSCULOSKELETAL Normal range of motion at all joints. No bony deformities or tenderness. No CVA tenderness. EXTREMITIES: No cyanosis. No clubbing. No edema. No calf tenderness. SKIN: Warm and dry. Normal capillary refill. No rashes. No jaundice. NEUROLOGICAL: Alert, awake, appropriate. Cranial nerves 2-12 intact. No deficits to light touch and temperature in face, upper extremities and lower extremities. No motor deficits in the in face, upper extremities and lower extremities. Normoreflexic in the upper and lower extremities. Normal speech. Toes are down- going bilaterally. Gait is normal without ataxia. PSYCHIATRIC: Cooperative. Good eye contact. Appropriate mood and affect. ED Treatment Course - LABORATORY CBC & Chemistry Diagram: 08/28/19 20:36 08/28/19 20:36 - ADDITIONAL ORDERS Additional order review: Laboratory Results 08/28/19 08/28/19 20:36 20:36 Urine Color Yellow Urine Appearance Cloudy Urine pH 6.0 Ur Specific [place] 1.013 Urine Protein 2+ H Urine Glucose (UA) Trace Urine Ketones Negative Urine Blood 2+ H Urine Nitrite Negative Urine Bilirubin Negative Urine Urobilinogen 1.0 Ur Leukocyte Esterase 3+ H Urine WBC (Auto) 341 Urine RBC (Auto) 217 Urine Casts (Auto) 1 U Epithel Cells (Auto) 1.8 Urine Bacteria (Auto) 2816.2 Urine HCG, Qual Negative - RADIOLOGY Radiology Studies Ordered: Category Date Time Status ABDOMEN & PELVIS CT WITH CONTR [CT] Stat CT Scan 08/28/19 21:29 Ordered - Medications Given in the ED: ED Medications Discontinued Medications Generic Name Dose Route Start Last Admin Trade Name Freq PRN Reason Stop Dose Admin Acetaminophen 1,000 mg 08/28/19 20:29 08/28/19 21:13 Ofirmev Injection - IVPB 08/28/19 20:30 1,000 mg ONCE ONE Administration Sodium Chloride 1,000 mls @ 1,000 mls/hr 08/28/19 20:29 08/28/19 21:13 Normal Saline - IV 08/28/19 21:28 1,000 mls/hr [facility] Medical Decision Making - Medical Decision Making 08/28/19 23:11 The patient is a 39-year-old female past medical history of insulin for diabetes , who presents to the ER today for dysuria, lower abdominal pain radiating to her back. She states that her pain started today. She notes that she is unable to fully urinate and feels a pressure when she tries to urinate. She also states that she has lower left-sided abdominal pain. She states that her urine also has a funny smell. Denies fevers, chills, nausea, vomiting, diarrhea, constipation, chest pain, difficulty breathing. A/P: Dysuria On exam patient with suprapubic and left lower quadrant tenderness. Differential diagnosis includes but is not limited to: UTI, pyelonephritis, diverticulitis, colitis, abscess, appendicitis however less likely due to location of pain, gastroenteritis, cystitis. Urine appears cloudy Basic labs, urine, IV fluids and IV Tylenol given. Urine shows 3+ leukocytes, 2+ blood, with over 3000 white blood cells. Likely UTI. Lab work shows no leukocytosis, electrolytes grossly normal however sugar is over 300. Patient made aware of this is likely due to her infected urine. CTAP shows no acute pathology regarding the left lower quadrant. Gallbladder sludge noted however patient has no right upper quadrant pain. Patient informed of results. We will treat with Keflex at this time. Unlikely Pyelo as patient does not have any back pain. Prescription for Keflex sent to patient pharmacy. Discharge home with primary care follow-up I discussed the physical exam findings, ancillary test results and final diagnoses with the patient. I answered all of the patient's questions. The patient was satisfied with the care received and felt comfortable with the discharge plan and treatment plan. The Patient agrees to follow up with the primary care physician/specialist within 24-72 hours. Return precautions were given. Discharge - Discharge Information Problems reviewed: Yes Clinical Impression/Diagnosis: UTI (urinary tract infection) Qualifiers: Urinary tract infection type: acute cystitis Hematuria presence: without hematuria Qualified Code(s): N30.00 - Acute cystitis without hematuria Condition: Stable Disposition: HOME - Admission No - Additional Discharge Information Prescriptions: Cephalexin Monohydrate [Keflex -] 500 mg PO BID #14 capsule Phenazopyridine HCl [Pyridium -] 100 mg PO TID #6 tablet - Follow up/Referral Referrals: Jamel Coronado MD [Primary Care Provider] - - Patient Discharge Instructions Patient Printed Discharge Instructions: DI for Urinary Tract Infection (UTI) Additional Instructions: You were evaluated for your urinary symptoms today. You have a urinary tract infection. Take the Keflex as directed starting tomorrow. You received your first dose in the ER tonight. Take the pyridium with food three times a day. Drink plenty of fluids including water Take Tylenol 650mg every 6 hours as needed for pain. Monitor your blood sugar closely as you have an infection. Follow up with your primary care doctor this week. Return to the ER for worsening pain, vomiting, fever, increased back pain, or if you have any changes in your symptoms - Post Discharge Activity Work/Back to School Note: Back to Work
[2019-08-28 21:39] LABS: INR 1.01 (0.83-1.09); PROTHROMBIN TIME (PATIENT) 11.9 SEC (9.7-13.0)
[2019-08-28 22:07] LABS: ALBUMIN 3.5 g/dl (3.4-5.0); BILIRUBIN,TOTAL 0.6 mg/dL (0.2-1); BLOOD UREA NITROGEN 11.1 mg/dL (7-18); CALCIUM 8.2 mg/dL (8.5-10.1); CREATININE 0.7 mg/dL (0.55-1.3); POTASSIUM 3.9 mmol/L (3.5-5.1); TOT PROT 7.3 g/dl (6.4-8.2)
[2019-08-28 23:06] VITALS: BP 160/73; PULSE 110; TEMP 98
[2019-08-29] MEDS ORDERED: CEPHALEXIN MONOHYDRATE 500 MG CAPSULE (UD) PO ONE (00:20)
[2019-08-29] MEDS ORDERED: CEPHALEXIN MONOHYDRATE 500 MG CAPSULE (UD) ONE (00:30)
--- NOTE | 2019-08-29 21:59 | EKG ---
Test Reason : Blood Pressure : / mmHG Vent. Rate : 112 BPM Atrial Rate : 112 BPM P-R Int : 136 ms QRS Dur : 080 ms QT Int : 334 ms P-R-T Axes : 028 039 -05 degrees QTc Int : 455 ms SINUS TACHYCARDIA NONSPECIFIC T WAVE ABNORMALITY ABNORMAL ECG WHEN COMPARED WITH ECG OF 18-JUN-2017 05:09, NO SIGNIFICANT CHANGE WAS FOUND Confirmed by Yazmin Eddy ([id number]) on 08/29/2019 9:59:41 PM Referred By: Confirmed By:Yazmin Eddy
== END 2019-08-29 00:37 | disposition home or self-care (01) ==
LOC: JER 18:55
PROC: 3E033NZ Introduction of Analgesics, Hypnotics, Sedatives into Peripheral Vein, Percutaneous Approach (ICD-10-PCS; principal; 2019-08-28)
DX: N30.00 Acute cystitis without hematuria (principal); I10 Essential (primary) hypertension; E11.9 Type 2 diabetes mellitus without complications; Z79.4 Long term (current) use of insulin; E78.00 Pure hypercholesterolemia, unspecified; J45.909 Unspecified asthma, uncomplicated; Z88.6 Allergy status to analgesic agent; Z88.8 Allergy status to other drugs, medicaments and biological substances; Z91.018 Allergy to other foods
CPT/HCPCS: 36415; 74177-TC; 80053; 81003; 84703; 85025; 85610; 87086; 87186; 93005; 93010; 96374; 99282-25; J0131; J7030

== ENCOUNTER 2019-11-08 08:04 | Emergency (ER) | payer OTHER ==
[2019-11-08 08:17] VITALS: BP 119/62; PULSE 105; TEMP 98.4; BMI 55.5
[2019-11-08] MEDS ORDERED: guaiFENesin/CODEINE 10 ML UNIT-DOSE CUPS PO ONE (10:03)
--- NOTE | 2019-11-08 10:14 | PDOC ---
History of Present Illness - General History Source: Patient Exam Limitations: No Limitations - History of Present Illness Initial Comments: 11/08/19 10:07 39-year-old female with history of diabetes and asthma presents to the ED with complaints of URI symptoms initially began as nasal congestion now with bilateral ear pain throat pain and cough. Patient states glucose was 150 yesterday and has no other complaints at this time. Patient denies recent illness recent travel abdominal pain, urinary complaints, headache, or difficulty swallowing. Is this a multiple visit Asthma Patient?: No Timing/Duration: reports: other Severity: reports: moderate Possible Cause: Yes: no prior episodes Modifying Factors: improves with: coughing Associated Symptoms: reports: cough, earache, nasal congestion, sore throat <Lyric Lynn - Last Filed: 11/11/19 14:15> <Mauricio Perez - Last Filed: 11/12/19 14:03> - General Chief Complaint: Cold Symptoms Stated Complaint: EAR/THROAT PAIN Time Seen by Provider: 11/08/19 09:45 Past History - Travel Traveled outside of the country in the last 30 days: No Close contact w/someone who was outside of country & ill: No - Past Medical History Asthma: Yes Cardiac Disorders: Yes (tachy) COPD: No Diabetes: Yes HTN: Yes Hypercholesterolemia: Yes - Immunization History Immunization Up to Date: Yes - Psycho Social/Smoking Cessation Hx Smoking History: Never smoked Have you smoked in the past 12 months: No Hx Alcohol Use: Yes Drug/Substance Use Hx: No Substance Use Type: None Hx Substance Use Treatment: No Patient Lives Alone: No Lives with/in: spouse/SO <Lyric Lynn - Last Filed: 11/11/19 14:15> <Mauricio Perez - Last Filed: 11/12/19 14:03> - Past Medical History Allergies/Adverse Reactions: Allergies Allergy/AdvReac Type Severity Reaction Status Date / Time metformin Allergy Severe Vomiting Verified 11/08/19 08:13 aspirin Allergy Mild shaking Verified 11/08/19 08:13 grapes Allergy Hives Uncoded 11/08/19 08:13 mushrooms Allergy Uncoded 11/08/19 08:13 Home Medications: Ambulatory Orders Atorvastatin Ca [Lipitor] 40 mg PO HS #25 tablet 05/30/17 Clopidogrel Bisulfate [Plavix -] 75 mg PO DAILY #25 tablet 05/30/17 Lisinopril [Prinivil] 5 mg PO DAILY #15 tablet 05/30/17 Glipizide 5 mg PO BID #60 tablet 06/20/17 Insulin (Levemir) [Levemir Vial] 15 units SQ HS #1 ml 06/20/17 Lactobacillus Acidophilus [Bacid -] 1 tab PO BID #60 tab 06/20/17 Benzocaine/Menthol [Cepacol Sore Throat Lozenge] 1 each MM QID PRN #16 lozenge 08/15/17 Azithromycin [Zithromax 250mg Tablets -] 250 mg PO UTDICT #6 tab 09/03/18 Benzonatate [Tessalon Pearls -] 100 mg PO TID PRN #21 capsule 09/03/18 Ipratropium [place] 2 spray NS BID PRN #1 spray 09/03/18 Cephalexin Monohydrate [Keflex -] 500 mg PO BID #14 capsule 08/29/19 Phenazopyridine HCl [Pyridium -] 100 mg PO TID #6 tablet 08/29/19 Azithromycin [Zithromax Tri-Renard (3 DAYS) -] 500 mg PO DAILY #3 tablet 11/08/19 Guaifenesin AC [Robitussin AC] 10 ml PO BID PRN #100 ud MDD 20 11/08/19 Respiratory Specific PMHX - Complaint Specific PMHX Hx Bronchitis: No Hx Pneumonia: No Hx Pulmonary Embolus: No Hx TB (Tuberculosis): No <Lyric Lynn - Last Filed: 11/11/19 14:15> Review of Systems - Review of Systems Able to Perform ROS?: Yes Constitutional: No: Symptoms Reported HEENTM: Yes: Nose Congestion, Throat Pain Respiratory: Yes: Cough Cardiac (ROS): No: Symptoms Reported ABD/GI: No: Symptoms Reported Musculoskeletal: No: Symptoms Reported Integumentary: No: Symptoms Reported Endocrine: No: Symptoms Reported Hematologic/Lymphatic: No: Symptoms Reported <Lyric Lynn - Last Filed: 11/11/19 14:15> *Physical Exam - Vital Signs Last Vital Signs Temp Pulse Resp BP Pulse Ox 98.4 F 105 H 20 119/62 100 11/08/19 08:14 11/08/19 08:14 11/08/19 08:14 11/08/19 08:14 11/08/19 08:14 - Physical Exam General Appearance: Yes: Nourished, Appropriately Dressed. No: Apparent Distress HEENT: positive: TMs Normal, Pharynx Normal. negative: Pale Conjunctivae Neck: positive: Supple Respiratory/Chest: positive: Lungs Clear, Normal Breath Sounds. negative: Respiratory Distress, Accessory Muscle Use, Wheezing Cardiovascular: positive: Regular Rhythm, Tachycardia. negative: Murmur Gastrointestinal/Abdominal: positive: Soft. negative: Tenderness Extremity: positive: Normal Inspection Integumentary: positive: Normal Color, Warm, Moist Neurologic: positive: Motor Strength 5/5 (ambulatory) <Lyric Lynn - Last Filed: 11/11/19 14:15> - Vital Signs Last Vital Signs Temp Pulse Resp BP Pulse Ox 98.4 F 105 H 20 119/62 100 11/08/19 08:14 11/08/19 08:14 11/08/19 08:14 11/08/19 08:14 11/08/19 08:14 <Mauricio Perez - Last Filed: 11/12/19 14:03> ED Treatment Course - Medications Given in the ED: ED Medications Discontinued Medications Generic Name Dose Route Start Last Admin Trade Name Freq PRN Reason Stop Dose Admin Guaifenesin/Codeine Phosphate 10 ml 11/08/19 10:03 11/08/19 10:14 Robitussin Ac - PO 11/08/19 10:04 10 ml ONCE ONE Administration <Mauricio Perez - Last Filed: 11/12/19 14:03> Medical Decision Making - Medical Decision Making 11/08/19 10:11 Chief complaint: URI symptoms x2 days no other complaints, glucose 150 this morning Exam: No abnormal findings, patient with dry hacking cough in the ER Plan: Robitussin-AC, discharged home with the same including azithromycin will test for influenza and if positive will give a call to pt 11/08/19 11:09 Laboratory Tests 11/08/19 10:30 Influenza A (Rapid) Negative Influenza B (Rapid) Negative <Lyric Lynn - Last Filed: 11/11/19 14:15> - Medical Decision Making 11/12/19 14:03 The patient was seen and evaluated in conjunction with VLADIMIR Lynn under my direct supervision, ancillary studies were reviewed. I independently interviewed and evaluated the patient and I agree with the plan as outlined by VLADIMIR Lynn. <Mauricio Perez - Last Filed: 11/12/19 14:03> Discharge - Discharge Information Problems reviewed: Yes <Lyric Lynn - Last Filed: 11/11/19 14:15> <Mauricio Perez - Last Filed: 11/12/19 14:03> - Discharge Information Clinical Impression/Diagnosis: URI (upper respiratory infection) Condition: Good Disposition: HOME - Additional Discharge Information Prescriptions: Azithromycin [Zithromax Tri-Renard (3 DAYS) -] 500 mg PO DAILY #3 tablet Guaifenesin AC [Robitussin AC] 10 ml PO BID PRN #100 ud MDD 20 PRN Reason: Cough - Follow up/Referral Referrals: Jamel Coronado MD [Primary Care Provider] - - Patient Discharge Instructions Patient Printed Discharge Instructions: DI for Viral Upper Respiratory Infection -- Adult Additional Instructions: Please take antibiotic as prescribed. Take Robitussin-AC for cough but please check sugar routinely and if noted stop taking the medication but may take Delsym [id number]. Rest and drink plenty of water - Post Discharge Activity
[2019-11-08] MEDS ORDERED: guaiFENesin/CODEINE 5 ML UNIT-DOSE CUPS PO ONE (10:25)
== END 2019-11-08 10:41 | disposition home or self-care (01) ==
LOC: JERFT 08:04 → JER 08:04
DX: J06.9 Acute upper respiratory infection, unspecified (principal); B97.89 Other viral agents as the cause of diseases classified elsewhere; J45.909 Unspecified asthma, uncomplicated; I10 Essential (primary) hypertension; E78.00 Pure hypercholesterolemia, unspecified; E11.9 Type 2 diabetes mellitus without complications; Z79.4 Long term (current) use of insulin; Z88.8 Allergy status to other drugs, medicaments and biological substances; Z91.018 Allergy to other foods
CPT/HCPCS: 87804; 99282-25

== ENCOUNTER 2020-08-18 14:00 | Emergency (ER) | payer OTHER ==
[2020-08-18 14:20] VITALS: TEMP 98.3; BMI 46.4
--- NOTE | 2020-08-18 14:34 | PDOC ---
History of Present Illness - General Chief Complaint: Chest Pain Stated Complaint: CHEST PAIN Time Seen by Provider: 08/18/20 14:32 History Source: Patient Exam Limitations: No Limitations - History of Present Illness Initial Comments: 08/18/20 14:33 Claudia Brown is a 40F with PMH HTN, HLD, IDDM, asthma presenting with intermittent chest pressure and urinary frequency. Patient otherwise healthy until 2 days prior. Yesterday evening began to have chest pressure as if there some something on her chest, lasted about a minute, then resolved. Has continued throughout the night into the day today, even during HPI. Denies palpitations or SOB, no recent trauma, has never had this pain before. Feels better lying down, worse sitting up, no pleuritic component. Denies SOB with exertion, fever, coughing, MCKEON, dizziness, diaphoresis. No sick contacts. No history of blood clots, hormone use, recent travel. PSH tubal ligation 13 years ago after having twins. Has not had menses since February 2020, intermittent, has been having inconsistent menses and already evaluated by [facility]. Also having urinary frequency and dark urine since yesterday with burning and itching since yesterday. Denies systemic symptoms. Allergy to ASA is dizziness. Denies alcohol/drugs/tobacco. Past History - Medical History Allergies/Adverse Reactions: Allergies Allergy/AdvReac Type Severity Reaction Status Date / Time metformin Allergy Severe Vomiting Verified 08/18/20 14:49 aspirin Allergy Mild shaking Verified 08/18/20 14:49 grapes Allergy Hives Uncoded 08/18/20 14:49 mushrooms Allergy Uncoded 08/18/20 14:49 Home Medications: Ambulatory Orders Atorvastatin Ca [Lipitor] 40 mg PO HS #25 tablet 05/30/17 Lisinopril [Prinivil] 5 mg PO DAILY #15 tablet 05/30/17 Glipizide 5 mg PO BID #60 tablet 06/20/17 Lactobacillus Acidophilus [Bacid -] 1 tab PO BID #60 tab 06/20/17 Ipratropium [place] 2 spray NS BID PRN #1 spray 09/03/18 Dulaglutide [Trulicity] 1.5 amp SQ WEEKLY 07/01/20 Insulin Glargine,Hum.rec.anlog [Basaglstephanie Thorne U-100] 32 unit SQ BID 07/01/20 Insulin Lispro [Admelog Solostar] 0 units SQ TID 07/01/20 Asthma: Yes Cardiac Disorders: Yes (tachy) COPD: No Diabetes: Yes HTN: Yes Hypercholesterolemia: Yes - Reproductive History Is Patient Now?: No - Immunization History Immunization Up to Date: Yes - Psycho-Social/Smoking History Smoking History: Never smoked Have you smoked in the past 12 months: No - Substance Abuse Hx (Audit-C & DAST Scrn) How often the patient has a drink containing alcohol: Never Score: In Men: 4 or > Positive; In Women: 3 or > Positive: 0 Screen Result (Pos requires Nsg. Audit-10AR): Negative In the last yr the pt used illegal drug/Rx for NonMed reason: No Score: Yes response is considered Positive: 0 Screen Result (Positive result requires Nsg. DAST-10): Negative Review of Systems - Review of Systems Able to Perform ROS?: Yes Constitutional: No: Symptoms Reported HEENTM: No: Symptoms Reported Respiratory: No: Shortness of Breath, SOB with Exertion, SOB at Rest, Wheezing Cardiac (ROS): Yes: Chest Pain. No: Palpitations, Syncope ABD/GI: No: Constipated, Diarrhea, Nausea, Poor Appetite, Poor Fluid Intake, Vomiting : Yes: Burning, Dysuria, Frequency, Urgency. No: Discharge, Flank Pain, Incontinence Musculoskeletal: No: Symptoms Reported Integumentary: No: Symptoms Reported Neurological: No: Symptoms reported Endocrine: No: Symptoms Reported Hematologic/Lymphatic: No: Symptoms Reported All Other Systems: Reviewed and Negative *Physical Exam - Vital Signs Last Vital Signs Temp Pulse Resp BP Pulse Ox 98.3 F 110 H 18 155/114 H 99 08/18/20 14:00 08/18/20 14:00 08/18/20 14:00 08/18/20 14:00 08/18/20 14:00 - Physical Exam General Appearance: Yes: Nourished, Appropriately Dressed, Obese, Other (resting in bed in NAD). No: Apparent Distress HEENT: positive: EOMI, CELSA, Normal Voice, Symmetrical, Pharynx Normal. negative: Scleral Icterus (R), Scleral Icterus (L), Pharyngeal Erythema, Tonsillar Exudate, Tonsillar Erythema Neck: positive: Trachea midline, Normal Thyroid, Supple. negative: Tender, R igid, Lymphadenopathy (R), Lymphadenopathy (L), Tender lateral, Tender midline Respiratory/Chest: positive: Lungs Clear, Normal Breath Sounds. negative: Chest Tender, Respiratory Distress, Accessory Muscle Use, Crackles, Rales, Rhonchi, Stridor, Wheezing Cardiovascular: positive: Regular Rhythm, Tachycardia. negative: Murmur Gastrointestinal/Abdominal: positive: Normal Bowel Sounds, Soft, Protuberent. negative: Tender, Organomegaly, Pulsatile Mass, Guarding, Rebound, Tenderness Musculoskeletal: positive: Normal Inspection. negative: CVA Tenderness, CVA Tenderness (L), Vertebral Tenderness Extremity: positive: Normal Capillary Refill, Normal Inspection, Normal Range of Motion, Pelvis Stable, Other (gait normal). negative: Tender, Pedal Edema, Swelling, Calf Tenderness Integumentary: positive: Normal Color, Dry, Warm Neurologic: positive: Fully Oriented, Alert, Normal Mood/Affect, Normal Response ED Treatment Course - LABORATORY CBC & Chemistry Diagram: 08/18/20 15:45 08/18/20 15:45 Medical Decision Making - Medical Decision Making 08/18/20 14:33 Patient here for intermittent chest pain while at rest Q20min lasting 1 min since yesterday, with PMH IDDM, HTN, HLD, no prior ACS, also tachycardic to >100 with no clear reason. Also having UTI symptoms. Evaluating for ACS vs. PE, PNA, as well as UTI. Unable to clear by [facility] due to tachycardia, low risk by Wells. CMP/CBC/ECG/CXR/CP/UA/UC/PT/aPTT/D-dimer Labs notable for: - CBC WNL - Coags WNL - D-dimer 896, elevated for age, concerned for PE - UA 2+ protein and 2000 bacteria, but contaminated with epithelials - CMP WNL - CP WNL 08/18/20 16:26 ECG sinus tachycardia with HR 106, QTc 422, no JORDAN/D or TWI. CXR unremarkable for pathology. 08/18/20 19:44 Signed out to night team, plan for f/u CTA and discharge appropriately. Discharge - Discharge Information Problems reviewed: Yes Clinical Impression/Diagnosis: Chest pain Qualifiers: Chest pain type: unspecified Qualified Code(s): R07.9 - Chest pain, unspecified Condition: Stable - Follow up/Referral Referrals: Bishop,Yadira, MD [Primary Care Provider] - Jersey Vanessa MD [Staff Physician] - Damaso Siddiqui MD [Staff Physician] - - Patient Discharge Instructions Patient Printed Discharge Instructions: DI for Atypical Chest Pain, DI for Urinary Tract Infection (UTI) Additional Instructions: Today you were seen for chest pressure. Your labs are normal, and your CT scan does not show any problems other than same enlarged lymph nodes that you need to have followed-up with your regular doctor. You are not having a heart attack or have a clot in your lungs. You do have a urinary tract infection, and we are sending you home with antibiotics. At home, take the antibiotics as prescribed. See a poultry raiser as referred. Follow-up with your primary doctor in the next week for further care. If you experience worsening chest pain, pressure, difficulty breathing, or have any other new or concerning symptoms, please return to the emergency room. - Post Discharge Activity
[2020-08-18 15:53] LABS: BASO % 0.5 % (0-2.0); EOS % 2.9 % (0-4.5); HEMOGLOBIN 12.2 GM/dL (10.7-15.3); LYMPH % 34.1 % (8-40); MCH 27.6 pg (25.7-33.7); MCHC 33.8 g/dl (32.0-36.0); MEAN CELL VOLUME 81.6 fl (80-96); MEAN PLT VOLUME 9.5 fl (7.5-11.1); MONO % 7.5 % (3.8-10.2); PLATELET COUNT 57 K/MM3 (134-434); RBC 4.41 M/mm3 (3.60-5.2); RDW 14.5 % (11.6-15.6)
[2020-08-18 16:00] LABS: INR 1.05 (0.83-1.09); PROTHROMBIN TIME (PATIENT) 12.4 SEC (9.7-13.0)
[2020-08-18 16:04] VITALS: BP 150/89; PULSE 99
[2020-08-18 16:10] LABS: EPI CELLS 34 /uL (0-25.1); HYALINE CASTS 1 /uL (0-3.1); URINE APPEARANCE CLEAR; URINE BACTERIA 2097 /uL (0-1359); URINE BILIRUBIN NEGATIVE (NEGATIVE); URINE COLOR YELLOW; URINE GLUCOSE (UA) NEGATIVE (NEGATIVE); URINE KETONE NEGATIVE (NEGATIVE); URINE LEUK ESTERASE TRACE (NEGATIVE); URINE NITRITE NEGATIVE (NEGATIVE); URINE PROTEIN 2+ (NEGATIVE); URINE RBC 9 /uL (0-23.9); URINE WBC 74 /uL (0-25.8)
[2020-08-18 16:27] LABS: ALBUMIN 3.2 g/dl (3.4-5.0); ALK PHOS 99 U/L (45-117); ANION GAP 4 MMOL/L (8-16); BILIRUBIN,TOTAL 0.8 mg/dL (0.2-1); BLOOD UREA NITROGEN 9.2 mg/dL (7-18); CALCIUM 8.5 mg/dL (8.5-10.1); CHLORIDE 106 mmol/L (98-107); CO2 30 mmol/L (21-32); CREATININE 0.8 mg/dL (0.55-1.3); GLUCOSE,RANDOM 149 mg/dL (74-106); POTASSIUM 3.8 mmol/L (3.5-5.1); SGOT/AST 16 U/L (15-37); SGPT/ALT 20 U/L (13-61); SODIUM 140 mmol/L (136-145); TOT PROT 7.4 g/dl (6.4-8.2)
[2020-08-18] MEDS ORDERED: MIDAZOLAM HCL 2 MG/2 ML SINGLE DOSE VIAL IVPUSH ONE (16:46)
--- NOTE | 2020-08-18 17:30 | PDOC ---
Documentation entered by Herber Ayers SCRIBE, acting as scribe for Trini Dexter MD. Trini Dexter MD: This documentation has been prepared by the Armen lizama Angel, SCRIBE, under my direction and personally reviewed by me in its entirety. I confirm that the documentation accurately reflects all work, treatment, procedures, and medical decision making performed by me. Attending Attestation - Resident Resident Name: Rui Browning - HPI HPI: 08/18/20 16:54 The patient is a 40 year old female with a significant past medical history of HTN, HLD, IDDM and asthma who presents to the ED with intermittent chest pressure and urinary frequency for 2 days. The patient states yesterday evening she began experiencing chest pressure describing the sensation as if something was on her chest. The patient said the episode lasted about a minute then self resolved.The patient states this has been happening through the night up until today. The patient also notes having urinary frequency with dark urine since yesterday, with itching and burning. The patient denies palpitations, SOB, or any recent trauma. - Physicial Exam PE: 08/26/20 12:31 Agree with resident exam. PAtient is alert and oriented and in no acute distress. Cv: rrr no m/r/g, mildly tachycardic. Pulm: CTa b/l. Abdomen: soft, non tender, non distneded no guarding or rebound. ext: no edema. - Medical Decision Making 08/26/20 12:32 Pt presents to the ED complaining of intermittent non exertional chest pain without shortness of breath. Tachycardic at rest. Differential includes ACS, PE, muscular pain. EKG and cardiac enzymes are negative. Will check CT PE and likely discharge home if negative. Discharge - Discharge Information Problems reviewed: Yes Clinical Impression/Diagnosis: Chest pain Qualifiers: Chest pain type: unspecified Qualified Code(s): R07.9 - Chest pain, unspecified Condition: Stable Disposition: HOME - Additional Discharge Information Prescriptions: Cephalexin Monohydrate [Keflex -] 500 mg PO BID 7 Days #14 capsule - Follow up/Referral Referrals: Jersey Vanessa MD [Staff Physician] - Damaso Siddiqui MD [Staff Physician] - Yadira Bishop MD [Primary Care Provider] - - Patient Discharge Instructions Patient Printed Discharge Instructions: Eating a Diet Rich in Fruits and Vegetables, DI for Urinary Tract Infection (UTI), DI for Atypical Chest Pain Additional Instructions: Today you were seen for chest pressure. Your labs are normal, and your CT scan does not show any problems other than same enlarged lymph nodes that you need to have followed-up with your regular doctor. You are not having a heart attack or have a clot in your lungs. You do have a urinary tract infection, and we are sending you home with antibiotics. At home, take the antibiotics as prescribed. See a gas station attendant as referred. Follow-up with your primary doctor in the next week for further care. If you experience worsening chest pain, pressure, difficulty breathing, or have any other new or concerning symptoms, please return to the emergency room. - Post Discharge Activity
[2020-08-18] MEDS ORDERED: MIDAZOLAM HCL 2 MG/2 ML SINGLE DOSE VIAL ONE (18:30)
--- OUTSIDE RECORDS SUMMARY | 2020-08-18 19:06 | XMS ---
:1980 [facility] Care Team Providers Name Role Phone MICHEL, ANNITA Unavailable Unavailable ED STAFF PHYSICIAN, STAFF Unavailable Unavailable ED STAFF PHYSICIANRICHARD Unavailable Unavailable Re-disclosure Warning The records that you are about to access may contain information from federally- assisted alcohol or drug abuse programs. If such information is present, then the following federally mandated warning applies: This information has been disclosed to you from records protected by federal confidentiality rules (42 CFR part 2). The federal rules prohibit you from making any further disclosure of this information unless further disclosure is expressly permitted by the written consent of the person to whom it pertains or as otherwise permitted by 42 CFR part 2. A general authorization for the release of medical or other information is NOT sufficient for this purpose. The Federal rules restrict any use of the information to criminally investigate or prosecute any alcohol or drug abuse patient.The records that you are about to access may contain highly sensitive health information, the redisclosure of which is protected by Article 27-F of the [place] Public Health law. If you continue you may haveaccess to information: Regarding HIV / AIDS; Provided by facilities licensed or operated by the [facility] Office of Mental Health; or Provided by the [facility] Office for People With Developmental Disabilities. If such information is present, then the following [facility] mandated warning applies: This information has been disclosed to you from confidential records which are protected by state law. State law prohibits you from making any further disclosure of this information without the specific written consent of the person to whom it pertains, or as otherwise permitted by law. Any unauthorized further disclosure in violation of state law may result in a fine or fci sentence or both. A general authorization for the release of medical or other information is NOT sufficient authorization for further disclosure. Allergies and Adverse Reactions Type Description Substance Reaction Status Data Source(s ) Propensity to Grapes No known hives Active eCW3 ([place] [facility] Propensity to Mushrooms No known Generalized body Active eCW3 ([place] adverse reactions allergies shaking [facility] (situation) Care) Drug allergy Metformin ER Drug allergy diarrhea Active eCW3 ([facility]) Propensity to Grapes No known hives Active eCW3 ([place] adverse reactions allergies [place] [facility] (situation) Care) Propensity to Mushrooms No known Generalized body Active eCW3 ([place] adverse reactions allergies shaking [facility] (situation) Care) Drug allergy Metformin ER Drug allergy diarrhea Active eCW3 ([facility]) Propensity to Grapes No known hives Active eCW3 ([place] adverse reactions allergies [facility] (situation) Care) Propensity to Mushrooms No known Generalized body Active eCW3 ([place] adverse reactions allergies shaking [facility] (situation) Care) Drug allergy Metformin ER Drug allergy diarrhea Active eCW3 ([facility]) Propensity to Grapes No known hives Active eCW3 ([place] adverse reactions allergies [facility] (situation) Care) Propensity to Mushrooms No known Generalized body Active eCW3 ([place] adverse reactions allergies shaking [facility] (situation) Care) Drug allergy Metformin ER Drug allergy diarrhea Active eCW3 ([facility]) No Information No Information No Information eC W2 ([facility]) No Information No Information No Information eC W2 ([facility]) Encounters Encounter Providers Location Date Indications Data Source(s ) Emergency Attender: RICHARD ED 01/09/2020 [facility] STAFF 10:54:00 AM EST Medical C enter PHYSICIANAttender: - 01/09/2020 STAFF ED STAFF 02:47:00 PM EST PHYSICIANAdmitter: RICHARD ED STAFF PHYSICIAN Patient discharged. Outpatient [facility] 09/08/2019 eCW3 ([facility] A28 12:00:00 AM EDT [facility]) 12:00:00 AM EDT Outpatient [facility] 05/11/2019 eCW3 ([facility] A28 12:00:00 AM [facility] 05[facility] Care) 12:00:00 AM EDT Outpatient Attender: H 05/04/2019 [facility] 11:07:00 AM EDT Medical C enter TORRESAdmitter : ANNITA TORRESReferrer : ANNITA MICHEL Outpatient [facility] 04/27/2019 eCW3 ([facility] A28 12:00:00 AM ED[facility] 04/[facility] Care) 12:00:00 AM EDT Outpatient [facility] 02/04/2019 eCW3 ([facility] A28 12:00:00 AM [facility] 02/04[facility]2019 Care) 12:00:00 AM EDT [facility] 10/26/2018 eCW2 ([facility] 12:00:00 AM [facility]) [facility] 10/16/2018 eCW2 ([facility] 12:00:00 AM [facility]) [facility] 09/28/2018 eCW2 ([facility] 12:00:00 AM [facility]) [facility] 09/08/2018 eCW2 ([facility] 12:00:00 AM [facility]) [facility] 08/31/2018 [facility] 08[facility]25[facility]2018 [facility] 08/21/2018 eCW2 ([facility] 12:00:00 AM [facility] 08/19/[facility] ([facility] 12:00:00 AM EDT [facility] [place] 08/06/2018 eCW2 ([facility] 12[facility]00:00 AM EDT [facility] [place] 08/05/2018 eCW2 ([facility] 12:00:00 AM EDT [facility]) [facility] [place] 08/05/2018 eCW2 ([facility] 12:00:00 AM EDT [facility]) [facility] [place] 07/31/2018 eCW2 ([facility] 12:00:00 AM EDT [facility] [place] 07/27/2018 eCW2 ([facility] 12:00:00 AM EDT [facility] [place] 07/21/2018 eCW2 ([facility] 12:00:00 AM EDT [facility] [place] 07/17/2018 eCW2 ([facility] 12:00:00 AM EDT [facility] [place] 07/16/2018 eCW2 ([facility] 12:00:00 AM EDT [facility] [place] 06/19/2018 eCW2 ([facility] 12:00:00 AM EDT [facility] [place] 03/10/2018 eCW2 ([facility] 12:00:00 AM EDT [facility] [place] 03/10/2018 eCW2 ([facility] 12:00:00 AM EDT [facility] 01/21/2018 eCW2 ([facility] 12:00:00 AM EST [facility]) [facility] [place] 12/24/2017 eCW2 ([facility] 12:00:00 AM EST [facility]) [facility] [place] 12/09/2017 eCW 2 ([facility] 12:00:00 AM EST [facility]) [facility] [place] 12/04/2017 eCW2 ([facility] 12:00:00 AM EST [facility]) [facility] [place] 10/30/2017 eCW2 ([facility] 12:00:00 AM EST [facility]) [facility] [place] 09/02/2017 eCW2 ([facility] 12:00:00 AM EDT [facility] [place] 08/28/2017 eCW2 ([facility] 12:00:00 AM EDT [facility] [place] 08/26/2017 eCW2 ([facility] 12:00:00 AM EDT [facility] [place] 08/12/2017 eCW2 ([facility] 12:00:00 AM EDT [facility]) [facility] [place] 06/25/2017 eCW2 ([facility] 12:00:00 AM EDT [facility]) [facility] [place] 06/19/2017 eCW2 ([facility] 12:00:00 AM EDT [facility] [place] 06/17/2017 eCW2 ([facility] 12:00:00 AM EDT [facility] [place] 06/12/2017 eCW2 ([facility] 12:00:00 AM EDT [facility] [place] 05/12/2017 eCW2 ([facility] 12:00:00 AM EDT [facility] 05/07/2017 eCW2 ([facility] 12:00:00 AM EDT [facility] 02/24/2017 eCW2 ([facility] 12[facility]00:00 AM EDT [facility] 11/28/2016 eCW2 ([facility] 12[facility]00:00 AM EST [facility] 10/15/2016 eCW2 ([facility] 12[facility]00:00 AM EST [facility] 10/15/2016 eCW2 ([facility] 12[facility]00:00 AM EST [facility] 10/01/2016 eCW2 ([facility] 12[facility]00:00 AM EST [facility] 09/30/2016 eCW2 ([facility] 12:00:00 AM EST [facility] 02/09/2016 eCW2 ([facility] 12[facility]00:00 AM EDT [facility] 02/08/2016 eCW2 ([facility] 12:00:00 AM EDT [facility] 02/06/2016 eCW2 ([facility] 12:00:00 AM EDT [facility] 01/15/2016 eCW2 ([facility] 12[facility]00:00 AM EST [facility] 01/12/2016 eCW2 ([facility] 12:00:00 AM EST [facility] 11/01/2015 eCW2 ([facility] 12:00:00 AM EST [facility] 09/28/2015 eCW2 ([facility] 12:00:00 AM EST [facility] 09/18/2015 eCW2 ([facility] 12:00:00 AM EST [facility]) [facility] [place] 08/02/2015 eCW2 ([facility] 12:00:00 AM EDT [facility] 07/05/2015 eCW2 ([facility] 12:00:00 AM EDT [facility] 07/04/2015 eCW2 ([facility] 12:00:00 AM EDT [facility] 06/05/2015 eCW2 ([facility] 12:00:00 AM EDT [facility] 05/11/2015 eCW2 ([facility] 12:00:00 AM EDT [facility] 04/21/2015 eCW2 ([facility] 12:00:00 AM EDT [facility] 04/21/2015 eCW2 ([facility] 12:00:00 AM EDT [facility] 04/20/2015 eCW2 ([facility] 12[facility]00:00 AM EDT [facility] 11/15/2014 eCW 2 ([facility] 12:00:00 AM EST [facility] 11/14/2014 eCW 2 ([facility] 12:00:00 AM EST [facility] 09/26/2014 eCW2 ([facility] 12:00:00 AM EST [facility]) [facility] [place] 09/12/2014 eCW2 ([facility] 12:00:00 AM EDT [facility]) [facility] [place] 09/08/2014 eCW2 ([facility] 12:00:00 AM EDT [facility] [place] 07/13/2014 eCW2 ([facility] 12:00:00 AM EDT [facility] [place] 07/07/2014 eCW2 ([facility] 12:00:00 AM EDT [facility] [place] 06/27/2014 eCW2 ([facility] 12:00:00 AM EDT [facility] [place] 06/23/2014 eCW2 ([facility] 12:00:00 AM EDT [facility] [place] 06/23/2014 eCW2 ([facility] 12:00:00 AM EDT [facility] [place] 06/22/2014 eCW2 ([facility] 12:00:00 AM EDT [facility]) [facility] [place] 05/17/2014 eCW2 ([facility] 12:00:00 AM EDT [facility]) [facility] [place] 02/10/2014 eCW2 ([facility] 12:00:00 AM EDT [facility]) [facility] [place] 02/07/2014 eCW2 ([facility] 12:00:00 AM EDT [facility]) [facility] [place] 02/04/2014 eCW2 ([facility] 12:00:00 AM EDT [facility]) [facility] [place] 01/27/2014 eCW2 ([facility] 12:00:00 AM EDT [facility] 12/13/2013 eCW2 ([facility] 12:00:00 AM EST [facility] 11/09/2013 eCW2 ([facility] 12:00:00 AM EST [facility] 11/09/2013 eCW2 ([facility] 12[facility]00:00 AM EST [facility] 10/18/2013 eCW 2 ([facility] 12:00:00 AM EST [facility]) [facility] 10/13/2013 eCW2 ([facility] 12:00:00 AM EST [facility] 09/27/2013 eCW 2 ([facility] 12:00:00 AM EST [facility] 09/10/2013 eCW2 ([facility] 12[facility]00:00 AM EDT [facility] 09/10/2013 eCW 2 ([facility] 12:00:00 AM EDT [facility] 06/04/2013 eCW2 ([facility] 12:00:00 AM EDT [facility] 05/10/2013 eCW 2 ([facility] 12:00:00 AM EDT [facility] 05/03/2013 eCW 2 ([facility] 12:00:00 AM EDT [facility] 04/26/2013 eCW 2 ([facility] 12:00:00 AM EDT [facility] 04/19/2013 eCW 2 ([facility] 12:00:00 AM EDT [facility] [place] 04/07/2013 eCW2 ([facility] 12:00:00 AM EDT [facility]) [facility] [place] 03/29/2013 eCW 2 ([facility] 12:00:00 AM EDT [facility]) [facility] [place] 03/25/2013 eCW 2 ([facility] 12:00:00 AM EDT [facility] 03/17/2013 eCW2 ([facility] 12:00:00 AM EDT [facility] 03/17/2013 eCW2 ([facility] 12:00:00 AM EDT [facility]) [facility] 03/08/2013 eCW 2 ([facility] 12:00:00 AM EDT [facility]) [facility] [place] 03/05/2013 eCW2 ([facility] 12:00:00 AM EDT [facility]) [facility] 03/05/2013 eCW2 ([facility] 12:00:00 AM EDT [facility]) [facility] [place] 02/27/2013 eCW2 ([facility] 12:00:00 AM EDT [facility]) [facility] [place] 02/17/2013 eCW2 ([facility] 12:00:00 AM EDT [facility] 02/17/2013 eCW2 ([facility] 12:00:00 AM EDT [facility]) [facility] [place] 02/15/2013 eCW2 ([facility] 12:00:00 AM EDT [facility]) [facility] [place] 02/12/2013 eCW2 ([facility] 12:00:00 AM [facility]) [facility] 02/11/2013 eCW2 ([facility] 12:00:00 AM [facility]) [facility] 02/03/2013 eCW2 ([facility] 12:00:00 AM [facility]) Immunizations Vaccine Date Status Description Data Source(s) pneumococcal 10/04/2019 completed eCW3 ([place] [facility] polysaccharide PPV23 10:58:00 AM [facility]) New in 2011. IIV4 10/04/2019 completed eCW3 ([facility] 10:49:[address] [facility]) New in 2011. IIV4 09/08/2018 completed eCW3 ([facility] 03:44:00 PM [facility]) IIV3. This is one of two 08/26/2017 completed eCW 3 ([place] codes [facility] which is being retired. IIV3. This vaccine code is 09/30/2016 completed e CW3 ([place] one of two which replace 01:49:00 PM [facility]) CVX 15, influenza, split virus. Hep A, adult 01/12/2016 completed eCW3 ([place] [facility] 02:54:[address] [facility]) As of July 1999, a 09/18/2015 completed eCW3 ([place] 2-dose hepatitis B 04:03:[address] [facility]) schedule for adolescents (11-15 year olds) was FDA approved for Merck's Recombivax HB adult formulation. Use code 43 for the 2-dose. This code should be used for any use of standard adult formulation of hepatitis B vaccine. IIV3. This vaccine code is 09/18/2015 completed e CW3 ([place] one of two which replace 04:03:00 PM [facility]) CVX 15, influenza, split virus. Hep A-Hep B 07/04/2015 completed eCW3 ([place] 11:12:00 AM [facility]) IIV3. This vaccine code is 11/14/2014 completed e CW3 ([place] one of two which replace 03:23:[address] [facility]) CVX 15, influenza, split virus. As of July 1999, a 10/13/2013 completed eCW3 ([employer] 2-dose hepatitis B 11:41:[address] [facility]) schedule for adolescents (11-15 year olds) was FDA approved for Merck's Recombivax HB adult formulation. Use code 43 for the 2-dose. This code should be used for any use of standard adult formulation of hepatitis B vaccine. IIV3. This vaccine code is 10/13/2013 completed e CW3 ([employer] one of two which replace 11:41:[address] [facility]) CVX 15, influenza, split virus. As of July 1999, a 06/04/2013 completed eCW3 ([employer] 2-dose hepatitis B 09:19:40 AM [facility]) schedule for adolescents (11-15 year olds) was FDA approved for Merck's Recombivax HB adult formulation. Use code 43 for the 2-dose. This code should be used for any use of standard adult formulation of hepatitis B vaccine. pneumococcal 02/11/2013 completed eCW3 ([place] polysaccharide PPV23 12:21:16 PM [facility]) Tdap 02/11/2013 completed eCW3 ([place] 12:21:16 PM [facility]) No Known Immunizations completed eCW2 ([facility]) No Known Immunizations completed eCW2 ([facility]) Medications Medication Brand Start Product Dose Route Administrative Pharm[facility] Indications Reaction Description Data Name Date Form Instructions Instructions Source(s) Blood Blood 04/06/ active Blood eCW3 Glucose Glucos 2020 Glucose ([place] Monitor e 12:00: Monitor [facility] [place] 00 AM System Health w/Device r EDT w/Device Care) System w/Kat ce Blood Blood 04/06/ active Blood eCW3 Glucose Glucos 2020 Glucose ([place] Monitor e 12:00: [facility] [place] 00 AM [facility] Health w/Device r EDT w/Device Care) System w/Kat ce Blood Blood 04/06/ active Blood eCW3 Glucose Glucos 2020 Glucose ([place] Monitor e 12:00: [facility] [place] 00 AM System Health w/Device r EDT w/Device Care) System w/Kat ce alogliptin Alogli .0 active Aloglipt in eCW3 25 MG Oral ptin 2019 {tabl Benzoate 25 ( [place] Tablet Benzoa 12:00: et} MG [facility] Alogliptin te 25 00 AM Health Benzoate 25 MG EDT Care) MG alogliptin Alogli .0 active Aloglipt in eCW3 25 MG Oral ptin 2019 {tabl Benzoate 25 ( [place] Tablet Benzoa 12:00: et} MG [place] Alogliptin te 25 00 AM Health Benzoate 25 MG EDT Care) MG Ergocalcife Ergoca 1.0 active Ergocal cifer eCW3 rol 50737 lcifer 2018 {[place] 53016 (Hu dson UNT Oral ol 12:00: ule} UNIT [place] Capsule 42641 00 AM Health Ergocalcife UNIT EDT Care) rol 33797 UNIT Ergocalcife Ergoca .0 suspend Ergoca lcifer eCW3 rol 46415 lcifer 2018 {[place] 46657 (Hu dson UNT Oral ol 12:00: ule} UNIT [place] Capsule 70845 00 AM Health Ergocalcife UNIT EDT Care) rol 17365 UNIT Ergocalcife Ergoca 1.0 active Ergocal cifer eCW3 rol 79088 lcifer 2019 {caps ol 95577 (Hu dson UNT Oral ol 12:00: ule} UNIT [place] Capsule 82686 00 AM Health Ergocalcife UNIT EDT Care) rol 83447 UNIT Ergocalcife Ergoca 1.0 active Ergocal cifer eCW3 rol 51927 lcifer 2019 {caps ol 93872 (Hu dson UNT Oral ol 12:00: ule} UNIT [place] Capsule 76268 00 AM Health Ergocalcife UNIT EDT Care) rol 64457 UNIT nateglinide Nategl .0 suspend Nategl inide eCW3 120 MG Oral inide 2018 {tabl ed 120 MG ([place] son Tablet 120 MG 12:00: et_be [place] Nateglinide 00 AM fore_ Health 120 MG EDT meals Care) } nateglinide Nategl .0 active Nategli nide eCW3 120 MG Oral inide 2019 {tabl 120 MG ([place] son Tablet 120 MG 12:00: et_be [place] Nateglinide 00 AM [facility] [place]_ Health 120 MG EDT meals Care) } duloxetine Duloxe .0 active Duloxeti ne eCW3 60 MG kristian 2018 {caps HCl 60 MG ([place] Delayed HCl 60 12:00: ule} [facility] Release MG 00 AM Health Oral EDT Care) Capsule Duloxetine HCl 60 MG Omeprazole Omepra .0 suspend Omepraz ole eCW3 40 MG zole 2018 {caps ed 40 MG ([place] Delayed 40 MG 12:00: ule} [facility] Release 00 AM Health Oral EDT Care) Capsule Omeprazole Omepra .0 active Omeprazo le eCW3 40 MG zole 2018 {caps 40 MG ([place] Delayed 40 MG 12:00: ule} [place] Release 00 AM Health Oral EDT Care) Capsule duloxetine Duloxe .0 active Duloxeti ne eCW3 30 MG kristian 2018 {caps HCl 30 mg ([place] Delayed HCl 30 12:00: ule} [place] Release mg 00 AM Health Oral EDT Care) Capsule Duloxetine HCl 30 mg duloxetine Duloxe .0 active Duloxeti ne eCW3 60 MG kristian 2018 {caps HCl 60 MG ([place] Delayed HCl 60 12:00: ule} [place] Release MG 00 AM Health Oral EDT Care) Capsule Duloxetine HCl 60 MG duloxetine Duloxe .0 active Duloxeti ne eCW3 30 MG kristian 2018 {caps HCl 30 mg ([place] Delayed HCl 30 12:00: ule} [place] Release mg 00 AM Health Oral EDT Care) Capsule Duloxetine HCl 30 mg duloxetine Duloxe .0 suspend Duloxet ine eCW3 30 MG kristian 2018 {caps ed HCl 30 mg ([place] Delayed HCl 30 12:00: ule} [facility] Release mg 00 AM [facility] Oral EDT Care) Capsule Duloxetine HCl 30 mg Omeprazole Omepra .0 active Omeprazo le eCW3 40 MG zole 2018 {caps 40 MG ([place] Delayed 40 MG 12:00: ule} [facility] Release 00 AM [facility] Oral EDT Care) Capsule duloxetine Duloxe .0 active Duloxeti ne eCW3 60 MG kristian 2019 {caps HCl 60 MG ([place] Delayed HCl 60 12:00: ule} [facility] Release MG 00 AM Health Oral EDT Care) Capsule Duloxetine HCl 60 MG nateglinide Nategl .0 suspend Nategl inide eCW3 120 MG Oral inide 2019 {tabl ed 120 MG ([facility] Tablet 120 MG 12:00: et_be [facility] Nateglinide 00 AM fore_ Health 120 MG EDT meals Care) } duloxetine Duloxe .0 active Duloxeti ne eCW3 30 MG kristian 2019 {caps HCl 30 mg ([place] Delayed HCl 30 12:00: ule} [facility] Release mg 00 AM Health Oral EDT Care) Capsule Duloxetine HCl 30 mg Omeprazole Omepra .0 active Omeprazo le eCW3 40 MG zole 2018 {caps 40 MG ([place] Delayed 40 MG 12:00: ule} [facility] Release 00 AM [facility] Oral EDT Care) Capsule Augmentin UNK .0 active Augmentin e CW3 875-125 MG 2018 {tabl 875-125 MG ([facility] ud[facility] 12:00: et} [facility] 00 AM Health EDT Care) Augmentin UNK .0 active Augmentin e CW3 875-125 MG 2018 {tabl 875-125 MG ([facility] 12:00: et} [facility] 00 AM Health EDT Care) Augmentin UNK .0 active Augmentin e CW3 875-125 MG 2018 {tabl 875-125 MG ([facility] ud[facility] 12:00: et} [facility] 00 AM [facility] EDT Care) alogliptin Alogli .0 suspend Aloglip tin eCW3 25 MG Oral ptin 2018 {tabl ed Benzoate 25 ( [place] Tablet Benzoa 12:00: et} MG [facility] Alogliptin te 25 00 AM Health Benzoate 25 MG EST Care) MG alogliptin Alogli .0 suspend Aloglip tin eCW3 25 MG Oral ptin 2018 {tabl ed Benzoate 25 ( [place] Tablet Benzoa 12:00: et} MG [facility] Alogliptin te 25 00 AM Health Benzoate 25 MG EST Care) MG alogliptin Alogli .0 active Aloglipt in eCW3 25 MG Oral ptin 2018 {tabl Benzoate 25 ( [place] Tablet Benzoa 12:00: et} MG [facility] Alogliptin te 25 00 AM Health Benzoate 25 MG EST Care) MG Isopropyl Alcoho 12/10/ active Alcohol P rep eCW3 Alcohol 0.7 l Prep 2018 70 % ([place] ML/ML 70 % 12:00: [facility] Medicated 00 AM Health Pad Alcohol EST Care) Prep 70 % Isopropyl Alcoho 12/10/ active Alcohol P rep eCW3 Alcohol 0.7 l Prep 2017 70 % ([place] [facility] ML/ML 70 % 12:00: [facility] Medicated 00 AM Health Pad Alcohol EST Care) Prep 70 % sitagliptin Januvi .0 active Januvia 100 eCW3 100 MG Oral a 100 2017 {tabl MG ([place] Tablet MG 12:00: et} [facility] [Januvia] 00 AM Health Januvia 100 EST Care) MG sitagliptin Novuvi .0 active Januvia 100 eCW3 100 MG Oral a 100 2017 {tabl MG ([place] Tablet MG 12:00: et} [facility] [Januvia] 00 AM Health Januvia 100 EST Care) MG Isopropyl Alcoho 12/10/ active Alcohol P rep eCW3 Alcohol 0.7 l Prep 2018 70 % ([place] ML/ML 70 % 12:00: [facility] Medicated 00 AM Health Pad Alcohol EST Care) Prep 70 % sitagliptin Novuvi .0 active Januvia 100 eCW3 100 MG Oral a 100 2017 {tabl MG ([place] Tablet MG 12:00: et} [facility] [Januvia] 00 AM Health Januvia 100 EST Care) MG FreeStyle FreeSt 12/10/ active FreeStyle eCW3 Lite - yle 2018 Lite - ([place] Lite - 12:00: [facility] 00 AM Health EST Care) FreeStyle FreeSt 12/10/ active FreeStyle eCW3 Lite Test - yle 2018 Lite Test - ( [place] Lite 12:00: [facility] Test - 00 AM Health EST Care) FreeStyle FreeSt 12/10/ active FreeStyle eCW3 Lite Test - yle 2018 Lite Test - ( [place] Lite 12:00: [facility] Test - 00 AM Health EST Care) FreeStyle FreeSt 12/10/ active FreeStyle eCW3 Lite - yle 2018 Lite - ([place] Lite - 12:00: [facility] 00 AM Health EST Care) FreeStyle FreeSt 12/10/ active FreeStyle eCW3 Lite - yle 2018 Lite - ([place] Lite - 12:00: [facility] 00 AM Health EST Care) FreeStyle FreeSt 12/10/ active FreeStyle eCW3 Lite Test - yle 2018 Lite Test - ( [place] Lite 12:00: [facility] Test - 00 AM Health EST Care) Isopropyl Alcoho 12/10/ active Alcohol P rep eCW3 Alcohol 0.7 l Prep 2018 70 % ([place] ML/ML 70 % 12:00: [facility] Medicated 00 AM Health Pad Alcohol EST Care) Prep 70 % Lancets Lancet 12/04/ active Lancets eCW 3 Ultra Fine s 2018 Ultra Fine - ( [place] - Ultra 12:00: [facility] Fine - 00 AM Health EST Care) Lancets Lancet 12/04/ active Lancets eCW 3 Ultra Fine s 2018 Ultra Fine - ( [place] - Ultra 12:00: [facility] Fine - 00 AM Health EST Care) Lancets Lancet 12/04/ active Lancets eCW 3 Ultra Fine s 2018 Ultra Fine - ( [place] - Ultra 12:00: [facility] Fine - 00 AM Health EST Care) Lancets Lancet 12/04/ active Lancets eCW 3 Ultra Fine s 2018 Ultra Fine - ( [place] - Ultra 12:00: [facility] Fine - 00 AM Health EST Care) Sitagliptin UNK 12/04/ 1.0 active Sitaglipt in eCW3 Phosphate 2018 {tabl Phosphate ([facility] 100 MG 12:00: et} 100 MG [facility] 00 AM Health EST Care) Blood Blood 08/12/ active Blood eCW3 Glucose Glucos 2017 Glucose Test ([facility] Test - e Test 12:00: - [facility] - 00 AM Health EDT Care) Blood Blood 08/12/ active Blood eCW3 Glucose Glucos 2017 Glucose Test ([facility] Test - e Test 12:00: - [facility] - 00 AM Health EDT Care) Blood Blood 08/12/ active Blood eCW3 Glucose Glucos 2017 Glucose Test ([facility] Test - e Test 12:00: - [facility] - 00 AM Health EDT Care) Blood Blood 08/12/ active Blood eCW3 Glucose Glucos 2017 Glucose Test ([facility] Test - e Test 12:00: - [facility] - 00 AM Health EDT Care) Basaglar Basagl 06/25/ suspend Basaglar eCW3 KwikPen 100 ar 2016 ed KwikPen 100 ( [place] UNIT/ML KwikPe 12:00: UNIT/ML [facility] n 100 00 AM Health UNIT/M EDT Care) L Basaglar Basagl 06/25/ suspend Basaglar eCW3 KwikPen 100 ar 2016 ed KwikPen 100 ( [place] UNIT/ML KwikPe 12:00: UNIT/ML [facility] n 100 00 AM Health UNIT/M EDT Care) L Pen [place] Pen 06/25/ active Pen Needl es eCW3 04/01" 31G X Needle 04/01" 31G X ([place] 8 MM s 12:00: 8 MM [facility] 04/01" 00 AM Health 31G X EDT Care) 8 MM Pen [place] Pen 06/25/ active Pen Needl es eCW3 04/01" 31G X Needle 04/01" 31G X ([place] 8 MM s 12:00: 8 MM [facility] 04/01" 00 AM Health 31G X EDT Care) 8 MM Basaglar Basagl 06/25/ suspend Basaglar eCW3 KwikPen 100 ar 2016 ed KwikPen 100 ( [place] UNIT/ML KwikPe 12:00: UNIT/ML [facility] n 100 00 AM Health UNIT/M EDT Care) L Pen [place] Pen 06/25/ active Pen Needl es eCW3 04/01" 31G X Needle 2017 04/01" 31G X ([place] 8 MM s 12:00: 8 MM [facility] 04/01" 00 AM Health 31G X EDT Care) 8 MM BASAGLAR BASAGL 06/25/ active BASAGLAR e CW3 KWIKPEN 100 AR 2016 KWIKPEN 100 ( [place] unit/ml KWIKPE 12:00: unit/ml [facility] N 100 00 AM Health unit/m EDT Care) l Pen [place] Pen 06/25/ active Pen Needl es eCW3 5/16" 31G X Needle 04/01" 31G X ([place] 8 MM s 12:00: 8 MM [facility] 04/01" 00 AM Health 31G X EDT Care) 8 MM BASAGLAR BASAGL 06/25/ active BASAGLAR e CW3 KWIKPEN 100 AR 2016 KWIKPEN 100 ( [place] unit/ml KWIKPE 12:00: unit/ml [facility] N 100 00 AM Health unit/m EDT Care) l BASAGLAR BASAGL 06/25/ active BASAGLAR e CW3 KWIKPEN 100 2016 KWIKPEN 100 ( [place] unit/ml KWIKPE 12:00: unit/ml [facility] N 100 00 AM Health unit/m EDT Care) l Glipizide GlipiZ 1.0 active GlipiZIDE 10 eCW3 10 MG Oral GAMA 10 2012 {tabl mg ([place] Tablet mg 12:00: et} [facility] GlipiZIDE 00 AM Health 10 mg EDT Care) Glipizide GlipiZ 1.0 active GlipiZIDE 10 eCW3 10 MG Oral GAMA 10 2012 {tabl mg ([place] Tablet mg 12:00: et} [facility] GlipiZIDE 00 AM Health 10 mg EDT Care) Glipizide GlipiZ 1.0 active GlipiZIDE 10 eCW3 10 MG Oral GAMA 10 2012 {tabl mg ([place] Tablet mg 12:00: et} [facility] GlipiZIDE 00 AM Health 10 mg EDT Care) Lisinopril Lisino active 1 tablet e CW2 5 MG pril 5 ([facility] MG [facility]) Lisinopril Lisino 1.0 active Lisinopril 5 eCW3 5 MG Oral pril 5 {tabl MG ([place] Tablet MG et} [facility]) clopidogrel Plavix 1.0 suspend Plavix 7 5 MG eCW3 75 MG Oral 75 MG {tabl ed ([place] Tablet et} [facility] [Plavix] Health Plavix 75 Care) MG Lisinopril Lisino 1.0 active Lisinopril 5 eCW3 5 MG Oral pril 5 {tabl MG ([place] Tablet MG et} [facility]) clopidogrel Plavix 1.0 suspend Plavix 7 5 MG eCW3 75 MG Oral 75 MG {tabl ed ([place] Tablet et} [place] [Plavix] [facility] Plavix 75 Care) MG Amoxicillin amoxic 1 complet [place] nt 875 MG / illin- ed Dion Clavulanate pot Medical 125 MG Oral clavul Center Tablet anate amoxicillin 875 -pot mg-125 clavulanate mg 875 mg-125 Tablet mg Tablet, , Ordered By: Jossue tesfaye By: Artis Jiménez ns: 1 McInty tablet oral re, every FNPDir twelve ection hours with s: 1 or after tablet food oral every twelve hours with or after food Acetaminoph acetam 2 complet [place] nt en 325 MG inophe ed Dion Oral Tablet n 325 Medical acetaminoph mg Center en 325 mg Tablet Tablet, , Ordered By: Jossue tesfaye By: Artis Jiménez ns: 2 McInty tablet oral re, every six FNPDir hours PRN ection pain s: 2 tablet oral every six hours PRN pain Lisinopril Lisino 1.0 active Lisinopril 5 eCW3 5 MG Oral pril 5 {tabl MG ([place] Tablet MG et} [facility]) Trulicity UNK active Trulicity eCW 3 ([facility]) Lisinopril Lisino 1.0 active Lisinopril 5 eCW3 5 MG Oral pril 5 {tabl MG ([place] Tablet MG et} [facility]) Admelog Admelo active Admelog eCW3 SoloStar g SoloStar 100 (Hu dson 100 UNIT/ML SoloSt UNIT/ML Vane er ar 100 Health UNIT/M Care) L atorvastati Atorva 1.0 active Atorvasta tin eCW3 n 40 MG statin {tabl Calcium 40 ([facility] d[facility] Oral Tablet Calciu et} mg [place] Atorvastati m 40 Health n Calcium mg Care) 40 mg BASAGLAR BASAGL active BASAGLAR eCW 3 KWIKPEN 100 AR KWIKPEN 100 ( [place] unit/ml KWIKPE unit/ml [facility] N 100 Health unit/m Care) l 0.5 ML Trulic active Trulicity eCW3 dulaglutide ity 1.5 MG/0.5ML ([place] 3 MG/ML 1.5 [facility] Auto-Inject MG/0.5 Health or ML Care) [Trulicity] Trulicity 1.5 MG/0.5ML atorvastati Atorva 1.0 active Atorvasta tin eCW3 n 40 MG statin {tabl Calcium 40 ([facility] d[facility] Oral Tablet Calciu et} mg [facility] Atorvastati 40 Health n Calcium mg Care) 40 mg atorvastati Atorva 1.0 active Atorvasta tin eCW3 n 40 MG statin {tabl Calcium 40 ([facility] Oral Tablet Calciu et} mg [facility] Atorvastati 40 Health n Calcium mg Care) 40 mg Unknown complet eCW2 Medications ed ([facility]) clopidogrel Plavix 1.0 suspend Plavix 7 5 MG eCW3 75 MG Oral 75 MG {tabl ed ([place] Tablet et} [place] [Plavix] [facility] Plavix 75 Care) MG Trulicity UNK active Trulicity eCW 3 ([facility]) clopidogrel Plavix active 1 tablet eCW2 75 MG Oral 75 MG ([place] Tablet [place] [Plavix] [facility] Plavix 75 Care) MG clopidogrel Plavix 1.0 suspend Plavix 7 5 MG eCW3 75 MG Oral 75 MG {tabl ed ([place] Tablet et} [place] [Plavix] [facility] Plavix 75 Care) MG atorvastati Atorva 1.0 active Atorvasta tin eCW3 n 40 MG statin {tabl Calcium 40 ([facility] d[place] Oral Tablet Calciu et} mg [place] Atorvastati 40 Health n Calcium mg Care) 40 mg Glipizide GlipiZ 1.0 active GlipiZIDE 1 0 eCW3 10 MG Oral GAMA 10 {tabl mg (Hud n Tablet mg et} [place] GlipiZIDE Health 10 mg Care) Insurance Providers Payer name Policy type Policy ID Covered Covered constitution party's Policy P delroy / Coverage constitution party ID relationship to [place] Inf ormation type erickson MARK [id number] 000 [facility] [id number] 01 [id number] 000 [facility] [id number] 01 [id number] 000 CARE [place] Problems, Conditions, and Diagnoses Code Display Name Description Problem Type Effective Data Dates Source(s) N76.1 Subacute vaginitis Subacute vaginitis Problem 0 eCW3 ([place] 12:00:00 AM [facility] EDT Care) 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/04/2020 eCW3 ([place] depression recurrent depressive 12:00:00 AM [facility] disorder EDT Care) 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 Peripheral sensory Problem 0 eCW3 ([place] neuropathy due to neuropathy due to 12:00:00 AM [facility] type 2 diabetes type 2 diabetes EDT Care ) mellitus mellitus N91.2 Amenorrhea Amenorrhea Problem 09/08/2019 eCW3 ([place] 12:00:00 AM [facility] EDT Care) K21.9 Chronic Chronic Problem 07/12/2019 eCW3 ([place] gastroesophageal gastroesophageal 12:00:00 AM [facility] reflux disease reflux disease EDT Care) K21.9 Chronic Chronic Problem 07/12/2019 eCW3 ([place] gastroesophageal gastroesophageal 12:00:00 AM [facility] reflux disease reflux disease EDT Care) N91.1 Amenorrhea, Amenorrhea, Problem 05/11/2019 eCW3 ([place] secondary secondary 12:00:00 AM [facility] EDT Care) N91.1 Amenorrhea, Amenorrhea, Problem 05/11/2019 eCW3 ([place] secondary secondary 12:00:00 AM [facility] EDT Care) N91.1 Amenorrhea, Amenorrhea, Problem 05/11/2019 eCW3 ([place] secondary secondary 12:00:00 AM [facility] EDT Care) Z79.4 Long-term current halfway current Problem 04/27/2019 eCW3 ([place] use of insulin use of insulin 12:00:00 AM [facility] EDT Care) M54.41 Lumbago with Lumbago with Problem 04/27/2019 eCW3 ([place] sciatica, right side sciatica, right side 12:00 :00 AM [facility] EDT Care) M54.42 Lumbago with Lumbago with Problem 04/27/2019 eCW3 ([place] sciatica, left side sciatica, left side 12:00:0 0 AM [facility] EDT Care) N91.1 Secondary amenorrhea Secondary amenorrhea Problem 04/27 eCW3 ([place] 12:00:00 AM [facility] EDT Care) M54.40 Acute midline low Acute midline low Problem 04/27/2019 eCW3 ([place] back pain with back pain with 12:00:00 AM [facility] sciatica, sciatica sciatica, sciatica EDT Care) laterality laterality unspecified unspecified Z79.4 Long-term current manager long term care current Problem 04/27/2019 eCW3 ([place] use of insulin use of insulin 12:00:00 AM [facility] EDT Care) M54.40 Acute midline low Acute midline low Problem 04/27/2019 eCW3 ([place] back pain with back pain with 12:00:00 AM [facility] sciatica, sciatica sciatica, sciatica EDT Care) laterality laterality unspecified unspecified G62.9 Neuropathy Neuropathy Problem 04/27/2019 eCW3 ([place] 12:00:00 AM [facility] EDT Care) N91.1 Secondary amenorrhea Secondary amenorrhea Problem 04/27 eCW3 ([place] 12:00:00 AM [facility] EDT Care) M54.41 Lumbago with Lumbago with Problem 04/27/2019 eCW3 ([place] sciatica, right side sciatica, right side 12:00 :00 AM [facility] EDT Care) M54.42 Lumbago with Lumbago with Problem 04/27/2019 eCW3 ([place] sciatica, left side sciatica, left side 12:00:0 0 AM [facility] EDT Care) K21.9 Chronic GERD Chronic GERD Problem 04/27/2019 eCW3 ([place] 12:00:00 AM [facility] EDT Care) M54.41 Lumbago with Lumbago with Problem 04/27/2019 eCW3 ([place] sciatica, right side sciatica, right side 12:00 :00 AM [facility] EDT Care) M54.42 Lumbago with Lumbago with Problem 04/27/2019 eCW3 ([place] sciatica, left side sciatica, left side 12:00:0 0 AM [facility] EDT Care) Z79.4 Long-term current halfway current Problem 04/27/2019 eCW3 ([place] use of insulin use of insulin 12:00:00 AM [facility] EDT Care) N91.1 Secondary amenorrhea Secondary amenorrhea Problem 04/27 eCW3 ([place] 12:00:00 AM [facility] EDT Care) G62.9 Neuropathy Neuropathy Problem 04/27/2019 eCW3 ([place] 12:00:00 AM [facility] EDT Care) E66.01 Morbid obesity Morbid obesity Problem 09/27/2018 eCW3 ( [place] 12:00:00 AM [facility] EST Care) E66.01 Morbid obesity Morbid obesity Problem 09/27/2018 eCW3 ( [place] 12:00:00 AM [facility] EST Care) E66.01 Morbid obesity Morbid obesity Problem 09/27/2018 eCW3 ( [place] 12:00:00 AM [facility] EST Care) E11.65 Uncontrolled type 2 Uncontrolled type 2 Problem 018 eCW2 ([place] diabetes mellitus diabetes mellitus 12:00:00 AM [facility] with hyperglycemia with hyperglycemia EST Care) E66.01 Morbid obesity Morbid obesity Problem 09/27/2018 eCW2 ( [place] 12:00:00 AM [facility] EST Care) K31.84 Gastroparesis Gastroparesis Problem 09/10/2018 eCW3 ([facility] 12:00:00 AM [facility] EDT Care) K31.84 Gastroparesis Gastroparesis Problem 09/10/2018 eCW3 ([facility] d[facility] 12:00:00 AM [facility] EDT Care) K31.84 Gastroparesis Gastroparesis Problem 09/10/2018 eCW3 ([facility] d[facility] 12:00:00 AM [facility] EDT Care) K31.84 Gastroparesis Gastroparesis Problem 09/10/2018 eCW2 ([facility] d[facility] 12:00:00 AM [facility] EDT Care) E66.01 Morbid obesity Morbid obesity Problem 09/08/2018 eCW3 ( [place] 12:00:00 AM [facility] EDT Care) E66.01 Morbid obesity Morbid obesity Problem 09/08/2018 eCW3 ( [place] 12:00:00 AM [facility] EDT Care) E66.01 Morbid obesity Morbid obesity Problem 09/08/2018 eCW3 ( [place] 12:00:00 AM [facility] EDT Care) E66.01 Morbid obesity Morbid obesity Problem 09/08/2018 eCW2 ( [place] 12:00:00 AM [facility] EDT Care) N30.00 Acute cystitis Acute cystitis Problem 03/10/2018 eCW3 ( [place] without hematuria without hematuria 12:00:00 AM [facility] EDT Care) N30.00 Acute cystitis Acute cystitis Problem 03/10/2018 eCW3 ( [place] without hematuria without hematuria 12:00:00 AM [facility] EDT Care) Z71.7 Counseling for HIV Counseling for HIV Problem 8 eCW3 ([place] Test Test 12:00:00 AM [facility] EDT Care) Z13.9 Screening procedure Encounter for Problem 03/10/2018 eC W3 ([place] screening, 12:00:00 AM [facility] unspecified EDT Care) Z13.9 Screening procedure Encounter for Problem 03/10/2018 eC W3 ([place] screening, 12:00:00 AM [facility] unspecified EDT Care) N30.00 Acute cystitis Acute cystitis Problem 03/10/2018 eCW3 ( [place] without hematuria without hematuria 12:00:00 AM [facility] EDT Care) Z71.7 Counseling for HIV Counseling for HIV Problem 8 eCW3 ([place] Test Test 12:00:00 AM [facility] EDT Care) Z13.9 Screening procedure Encounter for Problem 03/10/2018 eC W2 ([place] screening, 12:00:00 AM [facility] unspecified EDT Care) N30.00 Acute cystitis Acute cystitis Problem 03/10/2018 eCW2 ( [place] without hematuria without hematuria 12:00:00 AM [facility] EDT Care) Z71.7 Counseling for HIV Counseling for HIV Problem 8 eCW2 ([place] Test Test 12:00:00 AM [facility] EDT Care) E11.65 Type II diabetes Diabetes type 2, Problem 01/23/2018 eC W2 ([place] mellitus uncontrolled [facility]:00:00 [facility] N92.6 Irregular periods Irregular periods Problem 12/04/2017 eCW3 ([place] 12:00:00 AM [facility] EST Care) N92.6 Irregular periods Irregular periods Problem 12/04/2017 eCW3 ([place] 12:00:00 AM [facility] EST Care) N92.6 Irregular periods Irregular periods Problem 12/04/2017 eCW2 ([place] 12:00:00 AM [facility] EST Care) D69.6 Thrombocytopenia Thrombocytopenia, Problem 06/25/2017 e CW3 ([place] unspecified 12:00:00 AM [facility] EDT Care) D69.6 Thrombocytopenia Thrombocytopenia, Problem 06/25/2017 e CW3 ([place] unspecified 12:00:00 AM [facility] EDT Care) D69.6 Thrombocytopenia Thrombocytopenia, Problem 06/25/2017 e CW3 ([place] unspecified 12:00:00 AM [facility] EDT Care) D69.6 Thrombocytopenia Thrombocytopenia, Problem 06/25/2017 e CW2 ([place] unspecified 12:00:00 AM [facility] EDT Care) E78.5 Dyslipidemia Dyslipidemia Problem 06/12/2017 eCW3 ([place] [facility] 12:00:00 AM [facility] EDT Care) G47.30 Sleep apnea Sleep apnea Problem 06/12/2017 eCW3 ([place] 12:00:00 AM [facility] EDT Care) I10 Hypertension HTN (hypertension) Problem 06/12/2017 eCW3 ([place] 12:00:00 AM [facility] EDT Care) E11.9 Diabetes mellitus Type 2 diabetes Problem 06/12/2017 eC W3 ([place] type 2 mellitus with goal 12:00:00 AM [facility] symptom EDT Care) management I10 Hypertension HTN (hypertension) Problem 06/12/2017 eCW3 ([place] 12:00:00 AM [facility] EDT Care) E78.5 Dyslipidemia Dyslipidemia Problem 06/12/2017 eCW3 ([place] on 12:00:00 AM [facility] EDT Care) G47.30 Sleep apnea Sleep apnea Problem 06/12/2017 eCW3 ([place] 12:00:00 AM [facility] EDT Care) I10 Hypertension HTN (hypertension) Problem 06/12/2017 eCW3 ([place] 12:00:00 AM [facility] EDT Care) G47.30 Sleep apnea Sleep apnea Problem 06/12/2017 eCW3 ([place] 12:00:00 AM [facility] EDT Care) E11.9 Diabetes mellitus Type 2 diabetes Problem 06/12/2017 eC W3 ([place] type 2 mellitus with goal 12:00:00 AM [facility] symptom EDT Care) management E78.5 Dyslipidemia Dyslipidemia Problem 06/12/2017 eCW3 ([place] on 12:00:00 AM [facility] EDT Care) E11.9 Diabetes mellitus Type 2 diabetes Problem 06/12/2017 eC W2 ([place] type 2 mellitus with goal 12:00:00 AM [facility] symptom EDT Care) management E78.5 Dyslipidemia Dyslipidemia Problem 06/12/2017 eCW2 ([place] on 12:00:00 AM [facility] EDT Care) I10 Hypertension HTN (hypertension) Problem 06/12/2017 eCW2 ([place] 12:00:00 AM [facility] EDT Care) G47.30 Sleep apnea Sleep apnea Problem 06/12/2017 eCW2 ([place] 12:00:00 AM [facility] EDT Care) R60.9 Dependent edema Dependent edema Problem 10/15/2016 eCW3 ([place] 12:00:00 AM [facility] EST Care) R60.9 Dependent edema Dependent edema Problem 10/15/2016 eCW3 ([place] 12:00:00 AM [facility] EST Care) R60.9 Dependent edema Dependent edema Problem 10/15/2016 eCW3 ([place] 12:00:00 AM [facility] EST Care) R60.9 Dependent edema Dependent edema Problem 10/15/2016 eCW2 ([place] 12:00:00 AM [facility] EST Care) K30 Dyspepsia Dyspepsia Problem 09/30/2016 eCW3 ([place] 12:00:00 AM [facility] EST Care) E11.65 Diabetes mellitus Diabetes mellitus Problem 09/30/2016 eCW3 ([place] type 2 type 2, uncontrolled 12:00:00 AM [facility] er Health EST Care) F32.9 Depression Depression Problem 09/30/2016 eCW3 ([place] 12:00:00 AM [facility] EST Care) E11.65 Diabetes mellitus Diabetes mellitus Problem 09/30/2016 eCW3 ([place] type 2 type 2, uncontrolled 12:00:00 AM [facility] er Health EST Care) K30 Dyspepsia Dyspepsia Problem 09/30/2016 eCW3 ([place] 12:00:00 AM [facility] EST Care) E11.65 Diabetes mellitus Diabetes mellitus Problem 09/30/2016 eCW3 ([place] type 2 type 2, uncontrolled 12:00:00 AM [facility] er Health EST Care) K30 Dyspepsia Dyspepsia Problem 09/30/2016 eCW3 ([place] 12:00:00 AM [facility] EST Care) F32.9 Depression Depression Problem 09/30/2016 eCW3 ([place] 12:00:00 AM [facility] EST Care) K30 Dyspepsia Dyspepsia Problem 09/30/2016 eCW2 ([place] 12:00:00 AM [facility] EST Care) E11.65 Diabetes mellitus Diabetes mellitus Problem 09/30/2016 eCW2 ([place] type 2 type 2, uncontrolled 12:00:00 AM [facility] EST Care) F32.9 Depression Depression Problem 09/30/2016 eCW2 ([place] 12:00:00 AM [facility] EST Care) E66.01 Morbid obesity Morbid obesity Problem 01/12/2016 eCW3 ( [place] 12:00:00 AM [facility] EST Care) E66.01 Morbid obesity Morbid obesity Problem 01/12/2016 eCW3 ( [place] 12:00:00 AM [facility] EST Care) E66.01 Morbid obesity Morbid obesity Problem 01/12/2016 eCW3 ( [place] 12:00:00 AM [place] [facility] EST Care) E66.01 Morbid obesity Morbid obesity Problem 01/12/2016 eCW2 ( [place] 12:00:00 AM [facility] EST Care) S23.9XXA Thoracic back Thoracic back Problem 11/01/2015 eCW3 ([place] sprain, initial sprain, initial 12:00:00 AM [facility] encounter encounter EST Care) E11.9 Type II diabetes Type 2 diabetes Problem 11/01/2015 eCW 3 ([place] mellitus without mellitus without 12:00:00 AM [facility] complication complications EST Care) S23.9XXA Thoracic back Thoracic back Problem 11/01/2015 eCW3 ([place] sprain, initial sprain, initial 12:00:00 AM [facility] encounter encounter EST Care) S23.9XXA Thoracic back Thoracic back Problem 11/01/2015 eCW3 ([place] sprain, initial sprain, initial 12:00:00 AM [facility] encounter encounter EST Care) E11.9 Type II diabetes Type 2 diabetes Problem 11/01/2015 eCW 3 ([place] mellitus without mellitus without 12:00:00 AM [facility] complication complications EST Care) E11.9 Type II diabetes Type 2 diabetes Problem 11/01/2015 eCW 2 ([place] mellitus without mellitus without 12:00:00 AM [facility] complication complications EST Care) S23.9XXA Thoracic back Thoracic back Problem 11/01/2015 eCW2 ([place] sprain, initial sprain, initial 12:00:00 AM [facility] encounter encounter EST Care) E55.9 Vitamin D deficiency Vitamin D deficiency Problem 09/28 eCW3 ([place] 12:00:00 AM [facility] EST Care) E55.9 Vitamin D deficiency Vitamin D deficiency Problem 09/28 eCW3 ([place] 12:00:00 AM [place] [facility] EST Care) E55.9 Vitamin D deficiency Vitamin D deficiency Problem 09/28 eCW3 ([place] 12:00:00 AM [facility] EST Care) E55.9 Vitamin D deficiency Vitamin D deficiency Problem 09/28 eCW2 ([place] 12:00:00 AM [place] [facility] EST Care) E11.21 Diabetic renal Type 2 diabetes Problem 09/18/2015 eCW3 ([place] disease mellitus with 12:00:[address] [facility] diabetic nephropathy EST Care ) E11.21 Diabetic renal Type 2 diabetes Problem 09/18/2015 eCW3 ([place] disease mellitus with 12:00:[address] [facility] diabetic nephropathy EST Care ) E11.21 Diabetic renal Type 2 diabetes Problem 09/18/2015 eCW3 ([place] disease mellitus with 12:00:[address] [facility] diabetic nephropathy EST Care ) E11.21 Diabetic renal Type 2 diabetes Problem 09/18/2015 eCW2 ([place] disease mellitus with 12:00:[address] [facility] diabetic nephropathy EST Care ) I10 Essential (primary) ESSENTIAL (PRIMARY) Diagnosis 020 [facility] hypertension HYPERTENSION 10:54:00 AM [facility] E11.9 Type 2 diabetes TYPE 2 DIABETES Diagnosis 01/09/2020 Josias t mellitus without MELLITUS WITHOUT 10:54:00 AM osephs complications COMPLICATIONS [facility] J02.9 Acute pharyngitis, ACUTE PHARYNGITIS, Diagnosis 0 [facility] unspecified UNSPECIFIED 10:54:00 AM [facility] J01.10 Acute frontal ACUTE FRONTAL Diagnosis 01/09/2020 sinusitis, SINUSITIS, 10:54:00 AM [facility] unspecified UNSPECIFIED [facility] R51 Headache HEADACHE Diagnosis 01/09/2020 [facility] 10:54:00 AM [facility] M54.40 Lumbago with LUMBAGO WITH Diagnosis 05/04/2019 sciatica, SCIATICA, 11:07:00 AM [facility] unspecified side UNSPECIFIED SIDE EDT Me dical Center Surgeries/Procedures Procedure Description Date Indications Data Source(s) No Known procedures No Known procedures e CW2 ([facility]) No Known procedures No Known procedures e CW2 ([facility]) Results ID Date Data Source Microbiology.[id number] 01/09/2020 11:52:00 AM EST [place] [facility] 500 Name Value Range Interpretation Description Data Sup porting Code Source(s) Document(s ) UNK <item><content Saint styleCode="Robin Ashley d">Culture Medical Report Center </content><br/ ><table><tbody ><tr><td>Speci men Number:</td><t d>[id number]</t d></tr><tr><td >Sample Collection Date/Time: </td><td>2019 11:52 AM</td></tr><t r><td>Specimen Source:</td><t d>THROAT</td>< /tr><tr><td>Th roat-Nose Culture:</td>< td>Collection Plate Date: 01/09/2020 11:56 </td></tr><tr> <td>Culture Status:</td><t d>Final </td></tr><tr> <td>Culture Report:</td><t d>NEGATIVE FOR BETA HEMOLYTIC STREPTOCOCCI </td></tr></tb ally></table></ item> Streptococcus NEGATIVE <item><content pyogenes Ag styleCode="Robin Ashley [Presence] in d">Rapid Strep Medical Unspecified A Center specimen by </content><br/ Immunoassay ><table><tbody ><tr><td>Speci men Number:</td><t d>[id number]</t d></tr><tr><td >Sample Collection Date/Time: </td><td>2019 11:52 AM</td></tr><t r><td>Specimen Source:</td><t d>THROAT</td>< /tr><tr><td>Ra pid Strep A:</td><td>NEG ATIVE </td></tr></tb ally></table></ item> UNK <item><content [facility] styleCode="Robin Ashley d">Culture Medical Status Center </content><br/ ><table><tbody ><tr><td>Speci men Number:</td><t d>[id number]</t d></tr><tr><td >Sample Collection Date/Time: </td><td>2019 11:52 AM</td></tr><t r><td>Specimen Source:</td><t d>THROAT</td>< /tr><tr><td>Cu lture Report:</td><t d>NEGATIVE FOR BETA HEMOLYTIC STREPTOCOCCI </td></tr><tr> <td>Throat-Nos e Culture:</td>< td>Collection Plate Date: 01/09/2020 11:56 </td></tr><tr> <td>Culture Status:</td><t d>Final </td></tr></tb ally></table></ item> Procedure Social History Code Duration Value Status Description Data Source(s ) Smoking 05/22/2020 Never Smoker completed Never Smoker eCW3 ([place] 12:00:00 AM [facility]) Smoking 01/09/2020 Denies Ever completed Denies Ever Smoked [facility] 11:48:00 AM EST Smoked Medical C enter Smoking 01/09/2020 Denies Ever completed Denies Ever Smoked [facility] 11:13:00 AM EST Smoked Medical C enter Smoking 10/24/2019 Never Smoker completed Never Smoker eCW3 ([place] 12:00:00 AM EST [facility]) Smoking 10/24/2019 Never Smoker completed Never Smoker eCW3 ([place] 12:00:[address] [facility]) Smoking 05/13/2019 Never Smoker completed Never Smoker eCW3 ([place] 12:00:00 AM [facility]) Never Smoker completed Never Smoker eCW3 ([place] [facility]) Smoking Unknown if ever completed Unknown if ever Josias santamaria [facility] smoked smoked Medical Center Never Smoker completed Never Smoker eCW3 ([facility]) Never Smoker completed Never Smoker eCW3 ([facility]) Never Smoker completed Never Smoker eCW3 ([facility]) Smoking Unknown if ever completed Unknown if ever eCW2 ([place] smoked smoked [facility]) Smoking Unknown if ever completed Unknown if ever eCW2 ([place] smoked smoked [facility]) Vital Signs ID Date Data Source UNK Name Value Range Interpretation Code Description Data Source(s) Respiratory rate 18 /min 18 /min [facility] Heart rate 92 /min 92 /min [facility] Diastolic blood 89 mm[Hg] 89 mm[Hg] [facility] Systolic blood 144 mm[Hg] 144 mm[Hg] [facility] Respiratory rate 18 /min 18 /min [facility] Heart rate 113 /min 113 /min [facility] Diastolic blood 96 mm[Hg] 96 mm[Hg] [facility] Systolic blood 148 mm[Hg] 148 mm[Hg] [facility] Body temperature 37.302956 37.432401 [facility] Respiratory rate 19 /min 19 /min [facility] Oxygen saturation 100 % 100 % [facility] in Arterial blood [facility] by Pulse oximetry Heart rate 116 /min 116 /min [facility] Diastolic blood 54 mm[Hg] 54 mm[Hg] [facility] Systolic blood 96 mm[Hg] 96 mm[Hg] [facility] [place] Body weight 124.078112 124.755934 kg [facility] Measured kg Medical Center Body temperature 37.752172 37[address]10[address] [facility] Respiratory rate 18 /min 18 /min [facility] Oxygen saturation 100 % 100 % [facility] J osephs in Arterial blood [facility] by Pulse oximetry Heart rate 116 /min 116 /min [facility] Body height 149.066536 149.150879 cm [facility] [place] Diastolic blood 130 mm[Hg] 130 mm[Hg] [facility] Systolic blood 156 mm[Hg] 156 mm[Hg] [facility] Body mass index 55.5 kg/m2 55.5 kg/m2 [facility] (BMI) [Ratio] Medical [address] Body weight 271 [lb_av] 271 [lb_av] eCW3 ([facility]) Body height 58.5 [in_i] 58.5 [in_i] eCW3 ([facility]) Diastolic blood 75 mm[Hg] 75 mm[Hg] eCW3 ([facility]) Systolic blood 116 mm[Hg] 116 mm[Hg] eCW3 ([facility]) Body temperature 98.0 [degF] 98.0 [degF] eCW3 ( [facility]) Body mass index 55.67 kg/m2 55.67 kg/m2 eCW3 ([facility] (BMI) [Ratio] [facility]) Diastolic blood 86 mm[Hg] 86 mm[Hg] eCW3 ([facility]) Systolic blood 137 mm[Hg] 137 mm[Hg] eCW3 ([facility]) Body temperature 98.4 [degF] 98.4 [degF] eCW3 ( [facility]) Body mass index 55.46 kg/m2 55.46 kg/m2 eCW3 ([facility] (BMI) [Ratio] [facility]) Body weight 270 [lb_av] 270 [lb_av] eCW3 ([facility]) Body height 58.5 [in_i] 58.5 [in_i] eCW3 ([facility]) Diastolic blood 74 mm[Hg] 74 mm[Hg] eCW3 ([facility]) Systolic blood 133 mm[Hg] 133 mm[Hg] eCW3 ([facility]) Body temperature 98.0 [degF] 98.0 [degF] eCW3 ( [facility]) Body mass index 56.49 kg/m2 56.49 kg/m2 eCW3 ([facility] (BMI) [Ratio] [facility]) Body weight 275 [lb_av] 275 [lb_av] eCW3 ([facility]) Body height 58.5 [in_i] 58.5 [in_i] eCW3 ([facility]) Patient Treatment Plan of Care Planned Activity Planned Date Details Description Data Source (s) Blood Glucose Monitor 04/06/2020 12:00:00 eCW3 ([place] [facility] w/Device [facility]) Blood Glucose Monitor 04/06/2020 12:00:00 eCW3 ([place] [facility] w/Device [facility]) alogliptin 25 MG Oral 03/01/2020 12:00:00 eCW3 ([place] Tablet [facility]) alogliptin 25 MG Oral 03/01/2020 12:00:00 eCW3 ([place] Tablet [facility]) nateglinide 120 MG Oral 04/27/2019 12:00:00 eCW3 ([place] Tablet [facility]) alogliptin 25 MG Oral 12/25/2017 12:00:00 eCW3 ([place] Tablet [facility]) Isopropyl Alcohol 0.7 12/10/2017 12:00:00 eCW3 ([place] ML/ML Medicated Pad EST Health C are) Isopropyl Alcohol 0.7 12/10/2017 12:00:00 eCW3 ([place] ML/ML Medicated Pad EST Health C are) Lancets Ultra Fine - 12/04/2017 12:00:00 eCW3 ([facility]) Lancets Ultra Fine - 12/04/2017 12:00:00 eCW3 ([facility]) Blood Glucose Test - 08/12/2017 12:00:00 eCW3 ([place] [facility]) Blood Glucose Test - 08/12/2017 12:00:00 eCW3 ([place] [facility]) Pen [place] 5/16" 31G X 8 06/25/2017 12:00:00 eCW3 ([place] MM [facility]) BASAGLAR KWIKPEN 100 06/25/2017 12:00:00 eCW3 ([place] unit/ml [facility]) Pen [place] 5/16" 31G X 8 06/25/2017 12:00:00 eCW3 ([place] MM [facility]) BASAGLAR KWIKPEN 100 06/25/2017 12:00:00 eCW3 ([place] unit/ml [facility]) Glipizide 10 MG Oral 02/17/2013 12:00:00 eCW3 ([place] Tablet [facility]) Glipizide 10 MG Oral 02/17/2013 12:00:00 eCW3 ([place] Tablet [facility]) Glipizide 10 MG Oral 02/17/2013 12:00:00 eCW3 ([place] Tablet [facility]) Admelog SoloStar 100 eCW3 ([facility] [place] UNIT[facility]ML [facility]) Lisinopril 5 MG Oral eCW3 ([facility] Tablet Health [facility]) Glipizide 10 MG Oral [facility]CW3 [facility] 0.5 ML dulaglutide 3 eCW3 ([facility] [place] MG/ML Auto-Injector Health [facility]) [Trulicity] BASAGLTARYN KWIKPEN 100 eCW3 ([facility] [place] unit/ml Health Care) Trulicity eCW3 ([facility]) Lisinopril 5 MG Oral eCW3 ([facility] [place] [facility]t [facility]) atorvastatin 40 MG Oral eCW3 ([facility]) Trulicity eCW3 ([facility]) Lisinopril 5 MG Oral eCW3 [facility] [place] [facility]) atorvastatin 40 MG Oral eCW3 ([facility]) Acetaminophen 325 MG Oral [facility] Amoxicillin 875 MG / [facility] Clavulanate 125 MG Oral [facility] Tablet atorvastatin 40 MG Oral eCW3 ([facility] Tablet Health Care) clopidogrel 75 MG Oral eCW2 ([facility] Tablet [Plavix] Health Care) Lisinopril 5 MG eCW2 ([facility])
--- NOTE | 2020-08-18 19:28 | PDOC ---
*Physical Exam - Vital Signs Last Vital Signs Temp Pulse Resp BP Pulse Ox 98.3 F 99 H 17 150/89 98 08/18/20 14:00 08/18/20 16:03 08/18/20 16:03 08/18/20 16:03 08/18/20 16:03 ED Treatment Course - LABORATORY CBC & Chemistry Diagram: 08/18/20 15:45 08/18/20 15:45 - ADDITIONAL ORDERS Additional order review: Laboratory Results 08/18/20 08/18/20 08/18/20 15:45 15:45 15:45 PT with INR INR PTT (Actin FS) D-Dimer Sodium 140 Potassium 3.8 Chloride 106 Carbon Dioxide 30 Anion Gap 4 L BUN 9.2 Creatinine 0.8 Est GFR (CKD-EPI)AfAm 105.39 Est GFR (CKD-EPI)NonAf 90.93 Random Glucose 149 H Calcium 8.5 Total Bilirubin 0.8 AST 16 ALT 20 Alkaline Phosphatase 99 Creatine Kinase 218 H Creatine Kinase Index 0.4 CK-MB (CK-2) 1.0 Troponin I < 0.02 Total Protein 7.4 Albumin 3.2 L Serum , Qual Negative Urine Color Yellow Urine Appearance Clear Urine pH 7.0 Ur Specific [place] 1.007 L Urine Protein 2+ H Urine Glucose (UA) Negative Urine Ketones Negative Urine Blood Negative Urine Nitrite Negative Urine Bilirubin Negative Urine Urobilinogen 1.0 Ur Leukocyte Esterase Trace Urine WBC (Auto) 74 Urine RBC (Auto) 9 Urine Casts (Auto) 1 U Epithel Cells (Auto) 34 Urine Bacteria (Auto) 209608/18/20 08/18/20 15:45 15:45 PT with INR 12.40 INR 1.05 PTT (Actin FS) 29.0 D-Dimer 896 H Sodium Potassium Chloride Carbon Dioxide Anion Gap BUN Creatinine Est GFR (CKD-EPI)AfAm Est GFR (CKD-EPI)NonAf Random Glucose Calcium Total Bilirubin AST ALT Alkaline Phosphatase Creatine Kinase Creatine Kinase Index CK-MB (CK-2) Troponin I Total Protein Albumin Serum , Qual Urine Color Urine Appearance Urine pH Ur Specific [place] Urine Protein Urine Glucose (UA) Urine Ketones Urine Blood Urine Nitrite Urine Bilirubin Urine Urobilinogen Ur Leukocyte Esterase Urine WBC (Auto) Urine RBC (Auto) Urine Casts (Auto) U Epithel Cells (Auto) Urine Bacteria (Auto) 08/18/20 15:45 RBC 4.41 MCV 81.6 MCHC 33.8 RDW 14.5 MPV 9.5 Neutrophils % 55.0 Lymphocytes % 34.1 Monocytes % 7.5 Eosinophils % 2.9 Basophils % 0.5 - Medications Given in the ED: ED Medications Discontinued Medications Generic Name Dose Route Start Last Admin Trade Name Hillary PRN Reason Stop Dose Admin Midazolam HCl 1 mg 08/18/20 16:46 08/18/20 18:38 Versed - IVPUSH 08/18/20 16:47 1 mg ONCE ONE Administration Medical Decision Making - Medical Decision Making 08/18/20 19:26 Received signout on patient ; she came with CP and tachycardia; elevated d dimer normal EKG normal other labs Pt is morbidly obese; feeling better here and not tachycardic Signout is to follow the CTA chest and d/c patient. 08/18/20 19:37 Pt stable feeling well; CTA normal; she will follow with PMD Stable for d/c home She will follow with outpatient cardiology also. Discharge - Discharge Information Problems reviewed: Yes Clinical Impression/Diagnosis: Chest pain Qualifiers: Chest pain type: unspecified Qualified Code(s): R07.9 - Chest pain, unspecified Condition: Stable - Additional Discharge Information Prescriptions: Cephalexin Monohydrate [Keflex -] 500 mg PO BID 7 Days #14 capsule - Follow up/Referral Referrals: [place] Vanessa MD [Staff Physician] - Damaso Siddiqui MD [Staff Physician] - Yadira Bishop MD [Primary Care Provider] - - Patient Discharge Instructions Patient Printed Discharge Instructions: DI for Urinary Tract Infection (UTI), DI for Atypical Chest Pain, Eating a Diet Rich in Fruits and Vegetables Additional Instructions: Today you were seen for chest pressure. Your labs are normal, and your CT scan does not show any problems other than same enlarged lymph nodes that you need to have followed-up with your regular doctor. You are not having a heart attack or have a clot in your lungs. You do have a urinary tract infection, and we are sending you home with antibiotics. At home, take the antibiotics as prescribed. See a transit coach operator as referred. Follow-up with your primary doctor in the next week for further care. If you experience worsening chest pain, pressure, difficulty breathing, or have any other new or concerning symptoms, please return to the emergency room. - Post Discharge Activity
[2020-08-18] MEDS ORDERED: CEPHALEXIN MONOHYDRATE 500 MG CAPSULE (UD) PO ONE (19:49)
[2020-08-18] MEDS ORDERED: CEPHALEXIN MONOHYDRATE 500 MG CAPSULE (UD) ONE (19:50)
--- NOTE | 2020-08-20 21:38 | EKG ---
Test Reason : Blood Pressure : / mmHG Vent. Rate : 100 BPM Atrial Rate : 100 BPM P-R Int : 142 ms QRS Dur : 076 ms QT Int : 352 ms P-R-T Axes : 025 040 009 degrees QTc Int : 454 ms NORMAL SINUS RHYTHM CANNOT RULE OUT ANTERIOR INFARCT , AGE UNDETERMINED ABNORMAL ECG WHEN COMPARED WITH ECG OF 28-AUG-2019 18:56, NO SIGNIFICANT CHANGE WAS FOUND Confirmed by YENY KUHN MD ([id number]) on 08/20/2020 9:37:34 PM Referred By: Confirmed By:YENY KUHN MD
--- NOTE | 2020-08-21 17:05 | EKG ---
Test Reason : Blood Pressure : / mmHG Vent. Rate : 106 BPM Atrial Rate : 106 BPM P-R Int : 150 ms QRS Dur : 076 ms QT Int : 318 ms P-R-T Axes : 040 046 007 degrees QTc Int : 422 ms SINUS TACHYCARDIA POSSIBLE ANTERIOR INFARCT , AGE UNDETERMINED ABNORMAL ECG WHEN COMPARED WITH ECG OF 28-AUG-2019 18:56, NO SIGNIFICANT CHANGE WAS FOUND Confirmed by YENY KUHN MD ([id number]) on 08/21/2020 5:04:44 PM Referred By: Confirmed By:YENY KUHN MD
== END 2020-08-18 19:58 | disposition home or self-care (01) ==
LOC: JER 14:00
PROC: 3E033NZ Introduction of Analgesics, Hypnotics, Sedatives into Peripheral Vein, Percutaneous Approach (ICD-10-PCS; principal; 2020-08-18)
DX: R07.9 Chest pain, unspecified (principal)
CPT/HCPCS: 36415; 71045-TC-FY; 71275-TC; 80053; 81003; 82550; 82553; 84484; 84703; 85025; 85379; 85610; 85730; 87086; 93005; 93010; 99285-25; Q9967

== ENCOUNTER 2021-07-18 04:41 | Emergency (ER) | payer OTHER ==
[2021-07-18 05:08] VITALS: BMI 56.5
[2021-07-18] MEDS ORDERED: METHOCARBAMOL 500 MG TABLET PO ONE (05:18)
[2021-07-18] MEDS ORDERED: ACETAMINOPHEN 325 MG TABLET (FP) PO ONE (05:18)
[2021-07-18] MEDS ORDERED: LIDOCAINE 5% TOPICAL PATCH TP ONE (05:19)
[2021-07-18] MEDS ORDERED: ACETAMINOPHEN 325 MG TABLET (FP) ONE (05:28)
[2021-07-18] MEDS ORDERED: METHOCARBAMOL 500 MG TABLET ONE (05:29)
[2021-07-18] MEDS ORDERED: LIDOCAINE 5% TOPICAL PATCH ONE (05:29)
[2021-07-18 07:37] VITALS: TEMP 98
[2021-07-18 12:15] VITALS: BP 115/65; PULSE 80
== END 2021-07-18 12:18 | disposition home or self-care (01) ==
LOC: JER 04:41
DX: R10.2 Pelvic and perineal pain (principal); W18.2XXA Fall in (into) shower or empty bathtub, initial encounter
CPT/HCPCS: 72131-TC; 72170-TC-FY; 72192-TC; 73552-TC-RT-FY; 93970-TC; 99285-25

== ENCOUNTER 2023-01-17 10:03 | Emergency (ER) | payer OTHER ==
[2023-01-17 10:08] VITALS: TEMP 98.8; BMI 58.6
[2023-01-17] MEDS ORDERED: FAMOTIDINE 20 MG/50 ML IVPB 20 MG/50 ML MG IVPB ONE (11:25)
[2023-01-17] MEDS ORDERED: MAG HYDROX/AL HYDROX/SIMETH 30 ML UNIT-DOSE CUP PO ONE (11:25)
[2023-01-17] MEDS ORDERED: ONDANSETRON 4 MG/2 ML VIAL IVPUSH ONE (11:25)
[2023-01-17] MEDS ORDERED: SODIUM CHLORIDE 0.9% 500 ML INFUS.BAG IV ONE ×2 (11:30→17:15)
[2023-01-17] MEDS ORDERED: ONDANSETRON 4 MG/2 ML VIAL ONE (11:36)
[2023-01-17] MEDS ORDERED: FAMOTIDINE 10 MG/ML VIAL IVPB ONE (11:37)
[2023-01-17 11:39] LABS: BASO % 0.5 % (0-2.0); HEMATOCRIT 41.1 % (32.4-45.2); HEMOGLOBIN 13.5 GM/dL (10.7-15.3); MCH 27.3 pg (25.7-33.7); MCHC 32.9 g/dl (32.0-36.0); MEAN CELL VOLUME 83.1 fl (80-96); MEAN PLT VOLUME 10.3 fl (7.5-11.1); MONO % 6.3 % (3.8-10.2); NEUT % 80.2 % (42.8-82.8); PLATELET COUNT 60 10^3/uL (134-434); RBC 4.95 M/mm3 (3.60-5.2); RDW 14.8 % (11.6-15.6); WHITE BLOOD COUNT 6.4 K/mm3 (4.0-10.0)
[2023-01-17 12:10] LABS: CALCIUM 8.7 mg/dL (8.5-10.1)
[2023-01-17 12:11] LABS: BLOOD UREA NITROGEN 16.2 mg/dL (7-18)
[2023-01-17 12:15] LABS: ALBUMIN 3.5 g/dl (3.4-5.0); BILIRUBIN,TOTAL 1.1 mg/dL (0.2-1); CREATININE 0.9 mg/dL (0.55-1.3); TOT PROT 7.8 g/dl (6.4-8.2)
[2023-01-17 14:37] VITALS: BP 137/85
[2023-01-17 17:30] VITALS: PULSE 112; RESP 19
== END 2023-01-17 18:36 | disposition home or self-care (01) ==
LOC: JER 10:03
PROC: 3E033GC Introduction of Other Therapeutic Substance into Peripheral Vein, Percutaneous Approach (ICD-10-PCS; principal; 2023-01-17)
PROC: 3E033GC Introduction of Other Therapeutic Substance into Peripheral Vein, Percutaneous Approach (ICD-10-PCS; 2023-01-17)
DX: R11.2 Nausea with vomiting, unspecified (principal); R19.7 Diarrhea, unspecified; R00.0 Tachycardia, unspecified; R10.13 Epigastric pain
CPT/HCPCS: 36415; 80053; 82010; 82962; 83690; 84484; 84703; 85025; 93005; 93010; 99284-25

== ENCOUNTER 2023-02-24 09:45 | Emergency (ER) | payer OTHER ==
[2023-02-24 09:54] VITALS: BMI 58.1
[2023-02-24] MEDS ORDERED: DEXAMETHASONE SOD PHOSPHATE 4 MG/1 ML VIAL IM ONE (10:23)
[2023-02-24] MEDS ORDERED: KETOROLAC TROMETHAMINE 30 MG/1 ML VIAL IM ONE (10:23)
[2023-02-24] MEDS ORDERED: ACETAMINOPHEN 650 MG/20.3 ML ORAL SOLUTION (CUPS) PO ONE ×2 (10:32→12:50)
[2023-02-24 10:47] LABS: THROAT:GRP A STREP DETECTED (NOTDETECTED)
[2023-02-24] MEDS ORDERED: KETOROLAC TROMETHAMINE 30 MG/1 ML VIAL ONE (11:08)
[2023-02-24] MEDS ORDERED: DEXAMETHASONE SOD PHOSPHATE 10 MG/1 ML VIAL ONE (11:09)
[2023-02-24] MEDS ORDERED: ACETAMINOPHEN 650 MG/20.3 ML ORAL SOLUTION (CUPS) ONE (11:10)
[2023-02-24] MEDS ORDERED: AMOXICILLIN 500 MG CAPSULE (FP) PO ONE (11:26)
[2023-02-24] MEDS ORDERED: AMOXICILLIN 250 MG CAPSULE ONE (11:45)
[2023-02-24] MEDS ORDERED: ACETAMINOPHEN 325 MG TABLET (FP) ONE (12:27)
[2023-02-24] MEDS ORDERED: ACETAMINOPHEN 325 MG TABLET (FP) PO ONE (12:53)
[2023-02-24 12:59] VITALS: BP 122/58; RESP 20; TEMP 100.7
[2023-02-24 13:29] VITALS: PULSE 105
== END 2023-02-24 13:29 | disposition home or self-care (01) ==
LOC: JERFT 09:45
PROC: 3E0233Z Introduction of Anti-inflammatory into Muscle, Percutaneous Approach (ICD-10-PCS; principal; 2023-02-24)
PROC: 3E023GC Introduction of Other Therapeutic Substance into Muscle, Percutaneous Approach (ICD-10-PCS; 2023-02-24)
DX: J02.0 Streptococcal pharyngitis (principal); R07.0 Pain in throat; R50.9 Fever, unspecified; R11.0 Nausea; Z20.822 Contact with and (suspected) exposure to COVID-19
CPT/HCPCS: 0241U-QW; 87651; 99284-25

== ENCOUNTER 2023-04-16 11:23 | Inpatient (IN) | payer OTHER ==
[2023-04-16] MEDS ORDERED: morphine CARPU-JECT 4 MG/1 ML DISP.SYRIN IVPUSH ONE (12:06)
[2023-04-16] MEDS ORDERED: SODIUM CHLORIDE 1,000 ML IV STA (12:06)
[2023-04-16] MEDS ORDERED: VANCOMYCIN 1,000 MG in DEXTROSE 5%-WATER - 250 ML IVPB ONE (12:08)
[2023-04-16] MEDS ORDERED: VANCOMYCIN/WATER FOR INJ (PEG) 1,000 MG/200 ML BAG IVPB ONE (12:40)
[2023-04-16] MEDS ORDERED: morphine SULFATE 4 MG/ML VIAL ONE (12:40)
[2023-04-16 13:39] LABS: BASO % 0.3 % (0-2.0); EOS % 2.3 % (0-4.5); HEMATOCRIT 29.9 % (32.4-45.2); HEMOGLOBIN 9.9 GM/dL (10.7-15.3); LYMPH % 9.8 % (8-40); MCH 26.3 pg (25.7-33.7); MCHC 33.2 g/dl (32.0-36.0); MEAN CELL VOLUME 79.4 fl (80-96); MEAN PLT VOLUME 8.5 fl (7.5-11.1); MONO % 6.9 % (3.8-10.2); NEUT % 80.7 % (42.8-82.8); PLATELET COUNT 225 10^3/uL (134-434); RBC 3.76 M/mm3 (3.60-5.2); RDW 15.1 % (11.6-15.6); WHITE BLOOD COUNT 14.3 K/mm3 (4.0-10.0)
[2023-04-16 13:45] LABS: INR 1.29 (0.83-1.09); PROTHROMBIN TIME (PATIENT) 14.9 SEC (9.7-13.0)
[2023-04-16] MEDS ORDERED: PIPERACILLIN/TAZOB 3.375 GM 3.375 GM in DEXTROSE 5%-WATER - 50 ML IVPB ONE (14:10)
[2023-04-16 14:17] LABS: POTASSIUM 3.6 mmol/L (3.5-5.1)
[2023-04-16 14:19] LABS: ALBUMIN 2.2 g/dl (3.4-5.0); BLOOD UREA NITROGEN 8.1 mg/dL (7-18); CALCIUM 8.8 mg/dL (8.5-10.1)
[2023-04-16 14:22] LABS: CREATININE 0.7 mg/dL (0.55-1.3)
[2023-04-16 14:24] LABS: BILIRUBIN,TOTAL 0.6 mg/dL (0.2-1); TOT PROT 7.4 g/dl (6.4-8.2)
[2023-04-16] MEDS ORDERED: PIPERACILLIN/TAZOB 3.375 GM 3.375 GM/50 ML BAG IVPB ONE (14:49)
[2023-04-16 15:34] VITALS: BMI 56.0
[2023-04-16] MEDS: PIPERACILLIN/TAZOB 3.375 GM 3.375 GM in DEXTROSE 5%-WATER - 50 ML IVPB SCH (17:50)
[2023-04-16] MEDS: ACETAMINOPHEN 1000 MG/100 ML BAG IVPB PRN (18:31)
[2023-04-16] MEDS ORDERED: INSULIN (LEVEMIR) 100 UNITS/ML UNITS SQ SCH (22:00)
[2023-04-16] MEDS: ATORVASTATIN CA 20 MG TABLET (FP) PO SCH (22:19)
[2023-04-16] MEDS ORDERED: INSULIN (LEVEMIR) 100 UNITS/ML UNITS SQ ONE (22:39)
[2023-04-17] MEDS: ACETAMINOPHEN 1000 MG/100 ML BAG IVPB PRN ×3 (00:54→17:47)
[2023-04-17] MEDS: PIPERACILLIN/TAZOB 3.375 GM 3.375 GM in DEXTROSE 5%-WATER - 50 ML IVPB SCH ×3 (02:02→19:36)
[2023-04-17] MEDS: glipiZIDE 5 MG TABLET (FP) PO SCH ×2 (06:12→16:22)
[2023-04-17] MEDS: INSULIN SLIDING SCALE (NOVOLOG) 1 VIAL SQ SCH ×3 (06:13→16:51)
[2023-04-17 09:03] LABS: BASO % 0.4 % (0-2.0); EOS % 3.6 % (0-4.5); HEMATOCRIT 29.8 % (32.4-45.2); HEMOGLOBIN 9.9 GM/dL (10.7-15.3); LYMPH % 12.3 % (8-40); MCH 26.3 pg (25.7-33.7); MCHC 33.4 g/dl (32.0-36.0); MEAN CELL VOLUME 78.7 fl (80-96); MEAN PLT VOLUME 8.6 fl (7.5-11.1); MONO % 6.9 % (3.8-10.2); NEUT % 76.8 % (42.8-82.8); PLATELET COUNT 214 10^3/uL (134-434); RBC 3.78 M/mm3 (3.60-5.2); RDW 15.5 % (11.6-15.6); WHITE BLOOD COUNT 11.4 K/mm3 (4.0-10.0)
[2023-04-17 09:19] LABS: POTASSIUM 3.5 mmol/L (3.5-5.1)
[2023-04-17 09:22] LABS: BLOOD UREA NITROGEN 7.9 mg/dL (7-18); CALCIUM 8.9 mg/dL (8.5-10.1)
[2023-04-17 09:25] LABS: CREATININE 0.6 mg/dL (0.55-1.3)
[2023-04-17 09:27] LABS: BILIRUBIN,TOTAL 0.4 mg/dL (0.2-1); TOT PROT 7.2 g/dl (6.4-8.2)
[2023-04-17] MEDS ORDERED: PATIENT'S OWN MEDICATION (NON-FORMULARY) (Lisinopril/Hydrochlorothiazide [Lisinopril-Hctz PO SCH (10:00)
[2023-04-17] MEDS: HYDROCHLOROTHIAZIDE 12.5 MG CAPSULE (FP) PO SCH (10:31)
[2023-04-17] MEDS: LISINOPRIL 20 MG TABLET PO SCH (10:31)
[2023-04-17] MEDS: ENOXAPARIN NA (PORCINE) 40 MG/0.4 ML DISP.SYRIN SQ SCH (10:32)
[2023-04-17] MEDS: POLYETHYLENE GLYCOL (HEALTHYLAX) 3350 17 GM PACKET PO SCH ×2 (14:30→21:25)
[2023-04-17] MEDS: VANCOMYCIN PREMIX 1.5 GM 1,500 MG/300 ML BAG IVPB SCH (15:14)
[2023-04-17] MEDS ORDERED: INSULIN (NOVOLOG) ASPART 100 UNITS/ML 10ML VIAL ONE ×2 (16:46→16:56)
[2023-04-17] MEDS: ATORVASTATIN CA 20 MG TABLET (FP) PO SCH (21:25)
[2023-04-17] MEDS: INSULIN (LEVEMIR) 100 UNITS/ML UNITS SQ SCH (23:15)
[2023-04-18] MEDS: PIPERACILLIN/TAZOB 3.375 GM 3.375 GM in DEXTROSE 5%-WATER - 50 ML IVPB SCH ×3 (02:21→18:25)
[2023-04-18] MEDS: INSULIN SLIDING SCALE (NOVOLOG) 1 VIAL SQ SCH ×3 (07:03→17:30)
[2023-04-18] MEDS: glipiZIDE 5 MG TABLET (FP) PO SCH ×2 (07:03→16:29)
[2023-04-18] MEDS: ENOXAPARIN NA (PORCINE) 40 MG/0.4 ML DISP.SYRIN SQ SCH (10:45)
[2023-04-18] MEDS: HYDROCHLOROTHIAZIDE 12.5 MG CAPSULE (FP) PO SCH (10:47)
[2023-04-18] MEDS: POLYETHYLENE GLYCOL (HEALTHYLAX) 3350 17 GM PACKET PO SCH ×2 (10:47→21:53)
[2023-04-18] MEDS: LISINOPRIL 20 MG TABLET PO SCH (10:47)
[2023-04-18] MEDS: INSULIN (LEVEMIR) 100 UNITS/ML UNITS SQ SCH ×2 (10:47→21:59)
[2023-04-18] MEDS: VANCOMYCIN PREMIX 1.5 GM 1,500 MG/300 ML BAG IVPB SCH (14:48)
[2023-04-18] MEDS: ACETAMINOPHEN 1000 MG/100 ML BAG IVPB PRN (14:50)
[2023-04-18] MEDS ORDERED: IBUPROFEN 800 MG/8 ML IJ IVPB PRN (15:23)
[2023-04-18] MEDS ORDERED: ACETAMINOPHEN 1000 MG/100 ML BAG IVPB PRN (15:23)
[2023-04-18] MEDS: ATORVASTATIN CA 20 MG TABLET (FP) PO SCH (21:53)
[2023-04-19] MEDS: PIPERACILLIN/TAZOB 3.375 GM 3.375 GM in DEXTROSE 5%-WATER - 50 ML IVPB SCH ×3 (01:57→18:24)
[2023-04-19] MEDS: INSULIN SLIDING SCALE (NOVOLOG) 1 VIAL SQ SCH ×3 (06:20→16:51)
[2023-04-19] MEDS: glipiZIDE 5 MG TABLET (FP) PO SCH ×2 (06:20→16:41)
[2023-04-19] MEDS: HYDROCHLOROTHIAZIDE 12.5 MG CAPSULE (FP) PO SCH (09:43)
[2023-04-19] MEDS: LISINOPRIL 20 MG TABLET PO SCH (09:43)
[2023-04-19] MEDS: ENOXAPARIN NA (PORCINE) 40 MG/0.4 ML DISP.SYRIN SQ SCH (09:43)
[2023-04-19] MEDS: POLYETHYLENE GLYCOL (HEALTHYLAX) 3350 17 GM PACKET PO SCH ×2 (10:02→22:14)
[2023-04-19] MEDS ORDERED: INSULIN (NOVOLOG) ASPART 100 UNITS/ML 10ML VIAL ONE ×2 (11:03→16:36)
[2023-04-19] MEDS: VANCOMYCIN PREMIX 1.5 GM 1,500 MG/300 ML BAG IVPB SCH (14:37)
[2023-04-19] MEDS: IBUPROFEN 600 MG TABLET (FP) PO PRN (20:04)
[2023-04-19] MEDS: ATORVASTATIN CA 20 MG TABLET (FP) PO SCH (22:12)
[2023-04-19] MEDS: INSULIN (LEVEMIR) 100 UNITS/ML UNITS SQ SCH (22:12)
[2023-04-20] MEDS: PIPERACILLIN/TAZOB 3.375 GM 3.375 GM in DEXTROSE 5%-WATER - 50 ML IVPB SCH ×3 (02:32→18:08)
[2023-04-20] MEDS: INSULIN SLIDING SCALE (NOVOLOG) 1 VIAL SQ SCH ×3 (06:22→17:03)
[2023-04-20] MEDS: glipiZIDE 5 MG TABLET (FP) PO SCH ×2 (06:23→15:51)
[2023-04-20] MEDS: IBUPROFEN 600 MG TABLET (FP) PO PRN ×3 (09:30→22:10)
[2023-04-20] MEDS: ENOXAPARIN NA (PORCINE) 40 MG/0.4 ML DISP.SYRIN SQ SCH (09:59)
[2023-04-20] MEDS: LISINOPRIL 20 MG TABLET PO SCH (09:59)
[2023-04-20] MEDS: HYDROCHLOROTHIAZIDE 12.5 MG CAPSULE (FP) PO SCH (09:59)
[2023-04-20] MEDS: POLYETHYLENE GLYCOL (HEALTHYLAX) 3350 17 GM PACKET PO SCH ×2 (10:00→22:08)
[2023-04-20 12:02] VITALS: RESP 18
[2023-04-20] MEDS: VANCOMYCIN PREMIX 1.5 GM 1,500 MG/300 ML BAG IVPB SCH (13:54)
[2023-04-20] MEDS: ATORVASTATIN CA 20 MG TABLET (FP) PO SCH (22:00)
[2023-04-20] MEDS: INSULIN (LEVEMIR) 100 UNITS/ML UNITS SQ SCH (22:05)
[2023-04-21] MEDS: PIPERACILLIN/TAZOB 3.375 GM 3.375 GM in DEXTROSE 5%-WATER - 50 ML IVPB SCH ×3 (01:50→17:01)
[2023-04-21] MEDS: glipiZIDE 5 MG TABLET (FP) PO SCH ×2 (06:42→16:59)
[2023-04-21] MEDS: IBUPROFEN 600 MG TABLET (FP) PO PRN ×3 (06:44→22:16)
[2023-04-21] MEDS: INSULIN SLIDING SCALE (NOVOLOG) 1 VIAL SQ SCH ×3 (06:45→16:59)
[2023-04-21] MEDS: HYDROCHLOROTHIAZIDE 12.5 MG CAPSULE (FP) PO SCH (09:17)
[2023-04-21] MEDS: LISINOPRIL 20 MG TABLET PO SCH (09:17)
[2023-04-21] MEDS: ENOXAPARIN NA (PORCINE) 40 MG/0.4 ML DISP.SYRIN SQ SCH (09:17)
[2023-04-21] MEDS: POLYETHYLENE GLYCOL (HEALTHYLAX) 3350 17 GM PACKET PO SCH ×2 (09:25→22:12)
[2023-04-21] MEDS: INSULIN (LEVEMIR) 100 UNITS/ML UNITS SQ SCH (22:12)
[2023-04-21] MEDS: ATORVASTATIN CA 20 MG TABLET (FP) PO SCH (22:13)
[2023-04-22] MEDS: PIPERACILLIN/TAZOB 3.375 GM 3.375 GM in DEXTROSE 5%-WATER - 50 ML IVPB SCH ×2 (02:24→09:11)
[2023-04-22] MEDS: INSULIN SLIDING SCALE (NOVOLOG) 1 VIAL SQ SCH ×2 (06:11→11:20)
[2023-04-22] MEDS: glipiZIDE 5 MG TABLET (FP) PO SCH (06:12)
[2023-04-22] MEDS: IBUPROFEN 600 MG TABLET (FP) PO PRN (09:10)
[2023-04-22] MEDS: HYDROCHLOROTHIAZIDE 12.5 MG CAPSULE (FP) PO SCH (09:11)
[2023-04-22] MEDS: ENOXAPARIN NA (PORCINE) 40 MG/0.4 ML DISP.SYRIN SQ SCH (09:11)
[2023-04-22] MEDS: LISINOPRIL 20 MG TABLET PO SCH (09:11)
[2023-04-22] MEDS: POLYETHYLENE GLYCOL (HEALTHYLAX) 3350 17 GM PACKET PO SCH (09:14)
[2023-04-22 11:04] VITALS: BP 153/100; PULSE 102; TEMP 98.3
== END 2023-04-22 15:22 | disposition home or self-care (01) | DRG 721 ==
LOC: JER 11:23 → JERBED 14:35 → J6S 15:22
PROVIDERS: ADMIT Internal Medicine; ATTEND Internal Medicine
DX: T81.40XA Infection following a procedure, unspecified, initial encounter (principal); E11.65 Type 2 diabetes mellitus with hyperglycemia; E78.5 Hyperlipidemia, unspecified; L03.113 Cellulitis of right upper limb; E66.9 Obesity, unspecified; Z68.43 Body mass index [BMI] 50.0-59.9, adult; I10 Essential (primary) hypertension; Y83.9 Surgical procedure, unspecified as the cause of abnormal reaction of the patient, or of later complication, without mention of misadventure at the time of the procedure
CPT/HCPCS: 36415; 73130-TC-RT-FY; 80053; 82962; 83036; 85025; 85610; 86850; 86900; 86901; 87040; 87635; 93005; 93010; 93971; 99285-25; G0480